=== PATIENT | male | born 1945 | race Caucasian/White ===

== ENCOUNTER → 2018-02-04 14:48 | Outpatient (CLI) | payer MEDICARE, OTHER, SELFPAY ==
[2018-02-04 14:51] LABS: Bacteria 0 SEEN /hpf (None Seen); Squamous Epithelial Cells - UA 0 SEEN /hpf (0-5); White Blood Cells 0 SEEN /hpf (0-5)
[2018-02-04 15:51] LABS: Absolute Lymphocyte Count 2.13 X10^3/ul (0.83-4.51); Absolute Neutrophil Count 3.2 X10^3/uL (2.0-7.7); Basophil# 0.02 X10^3/uL; Basophil% 0.3 % (0-1); Eosinophil# 0.25 X10^3/uL; Hematocrit 40.3 % (40-54); Hemoglobin 13.7 g/dl (13.0-16.5); Lymphocyte # 2.13 X10^3/ul (4.0); Lymphocyte % 33.8 % (19-41); Mean Corpuscular Hgb 32.6 pg (27.0-32.0); Mean Platelet Vol. 11.1 fl (6.2-12.0); Monocyte# 0.75 X10^3/uL; Monocyte% 11.9 % (0-10); Neutrophil # 3.15 X10^3/uL (2.7-7.7); Neutrophil % 49.8 % (47-70); Platelet Count 135 K/mm3 (150-450); RBC Distribution Width CV 13.7 % (11.6-14.6); RBC Distribution Width SD 46.3 fl (35.1-43.9); White Blood Count 6.3 K/mm3 (4.4-11.0)
[2018-02-04 15:54] LABS: Color, Urine Yellow (Yellow); Glucose, Dipstick Normal (Normal); Ketone-Dipstick 5 mg/dl (Negative); Leukocyte Esterase-Dipstick 25 /ul (Negative); Nitrite-Dipstick Negative (Negative); Occult Blood-Urine Negative /ul (Negative); Protein-Dipstick Negative (Negative); Urine Clarity Clear (Clear); Urine Urobilinogen 1 mg/dl (Normal)
[2018-02-04 16:05] LABS: POSITIVE COUNT NO; POSITIVE DIFFERENTIAL NO; POSITIVE MORPHOLOGY NO
[2018-02-04 16:07] LABS: ALB/GLOB Ratio 1.1 RATIO (0.9-2.4); AST(SGOT) 17 U/L (15-37); Alanine Aminotransfer ALT/SGPT 19 U/L (16-61); Albumin, Serum 3.8 g/dL (3.2-5.0); Alkaline Phosphatase 33 U/L (45-117); Anion Gap 9 (5-15); BUN 23 mg/dL (7-18); BUN/Creat Ratio 16.4 RATIO (10-20); Calcium,Total 9.1 mg/dL (8.5-10.1); Chloride 107 mmol/L (98-107); Cholesterol 133 mg/dL (200); EST Glomerular Filtration Rate 53 mL/min (>60); Est Glom Filt Rate - Afr Amer 64 mL/min (>60); Globulin 3.6 g/dL (2.2-4.2); Glucose 87 mg/dL (74-106); High Density Lipoprotein 46 mg/dL; Potassium 4.6 mmol/L (3.5-5.1); Protein, Total 7.4 g/dL (6.4-8.2); Sodium Level 139 mmol/L (136-145); T4 Free Direct 1.03 ng/dL (0.76-1.46); Thyroid Stim Hormone (TSH) 1.89 uIU/mL (0.358-3.74); Triglycerides 165 mg/dL; Very Low Density Lipoprotein 33 mg/dL (5-40)
[2018-02-04 17:53] LABS: Urine Bilirubin Dipstick 1 mg/dL (Negative)
[2018-02-04 18:05] LABS: Hyaline Cast 0-5 SEEN /lpf (0-5); Mucous, Urine 2+ /hpf (<or=2+); Red Blood Cells-Urine 0-5 SEEN /hpf (0-5)
== END ==
PROVIDERS: Family Provider Family Medicine; PCP Family Medicine; Visit Provider Family Medicine
DX: I50.22 Chronic systolic (congestive) heart failure (principal); E78.5 Hyperlipidemia, unspecified; E04.1 Nontoxic single thyroid nodule
CPT/HCPCS: 36415; 80053; 80061; 81001; 84439; 84443; 85025

== ENCOUNTER → 2018-02-08 10:22 | Outpatient (CLI) | payer MEDICARE, OTHER, SELFPAY ==
[2018-02-08 12:34] LABS: Anion Gap 11 (5-15); BUN 14 mg/dL (7-18); BUN/Creat Ratio 11.2 RATIO (10-20); Calcium,Total 8.8 mg/dL (8.5-10.1); Chloride 101 mmol/L (98-107); Creatinine, Serum 1.25 mg/dL (0.70-1.30); EST Glomerular Filtration Rate 60 mL/min (>60); Est Glom Filt Rate - Afr Amer 72 mL/min (>60); Glucose 99 mg/dL (74-106); Potassium 4.5 mmol/L (3.5-5.1); Sodium Level 130 mmol/L (136-145)
== END ==
PROVIDERS: Family Provider Family Medicine; PCP Family Medicine; Visit Provider Family Medicine
DX: I10 Essential (primary) hypertension (principal)
CPT/HCPCS: 36415; 80048

== ENCOUNTER → 2018-02-14 12:55 | Outpatient (CLI) | payer MEDICARE, OTHER, SELFPAY ==
--- NOTE | 2018-02-14 12:56 | US_ITS ---
STUDY: THYROID ULTRASOUND REASON FOR EXAM: Male, 72 years old. Nodule TECHNIQUE: Ultrasound evaluation of the thyroid was performed with real-time and static henning-scale imaging. COMPARISON: None. FINDINGS: RIGHT LOBE: The right lobe of the thyroid gland measures 4.8 x 2.7 x 1.9 cm. There is a heterogeneous echotexture. Several nodules are seen with largest measuring 2.3 cm. LEFT LOBE: The left lobe of the thyroid gland measures 4.7 x 1.3 x 1.4 cm. There is a heterogeneous echotexture. Several tiny nodules are seen with largest measuring 6 mm. ISTHMUS: The isthmus measures 4 mm . The regional lymph nodes are normal. US/Thyroid IMPRESSION: Heterogeneous thyroid gland with a 2.3 cm dominant nodule on the right. Consider biopsy. Electronically Signed: Ilya Ford MD at 17:38 EDT , Service support ,
== END ==
PROVIDERS: Family Provider Family Medicine; PCP Family Medicine; Visit Provider Family Medicine
DX: E04.1 Nontoxic single thyroid nodule (principal)
CPT/HCPCS: 76536

== ENCOUNTER 2018-02-24 13:58 | Observation (INO) | payer MEDICARE, OTHER, SELFPAY ==
[2018-02-24] VITALS (11 sets, daily range): BP systolic 94–119; BP diastolic 60–70; PULSE 64–81; RESP 14–22; TEMP 36.5–36.7; O2SAT 92–97; BMI 25.2; BMI 24.0
--- NOTE | 2018-02-24 14:06 | RAD_ITS ---
STUDY: X-RAY CHEST REASON FOR EXAM: Male, 73 years old. Syncopal episode. TECHNIQUE: Single AP portable view of the chest. COMPARISON: None. FINDINGS: EKG electrodes are seen. Minimal increased markings at the lung bases suggests some minimal basilar scarring. There is no demonstrated pleural abnormality. Sternal cerclage wires and vascular clips are present from a prior sternotomy and coronary artery bypass graft procedure (CABG). A left-sided dual-chamber pacemaker is seen. Normal mediastinum and daryl. Normal visualized pulmonary arteries. There is atherosclerotic calcification of the aortic arch with tortuosity. Normal visualized thoracic spine. Normal visualized ribs, clavicles, and shoulders. There is no demonstrated abnormality of the visualized soft tissue structures of the upper abdomen. RAD/Chest 1 View (Portable) IMPRESSION: No acute abnormality is present. Electronically Signed: Jefferson Davison MD at 14:49 EDT Tel [phone], Service support ,
--- NOTE | 2018-02-24 14:06 | EKG12_ITS ---
Test Reason : CHEST PAIN Blood Pressure : / mmHG Vent. Rate : 068 BPM Atrial Rate : 063 BPM P-R Int : 174 ms QRS Dur : 086 ms QT Int : 470 ms P-R-T Axes : 051 007 074 degrees QTc Int : 499 ms Sinus rhythm with occasional PVCs Nonspecific T wave abnormality Prolonged QT Abnormal ECG Confirmed by INGRID RUIZ, ANTONIO ([id number]), mapping editor KELLY RIVERA ([id number] on 03/02/2018 1:39:33 PM Referred By: RU Confirmed By:ANTONIO QUINTERO MD
[2018-02-24 14:14] LABS: Absolute Lymphocyte Count 1.84 X10^3/ul (0.83-4.51); Absolute Neutrophil Count 4.1 X10^3/uL (2.0-7.7); Basophil# 0.03 X10^3/uL; Basophil% 0.4 % (0-1); Eosinophil# 0.27 X10^3/uL; Eosinophils% 3.8 % (0-5); Hematocrit 37.2 % (40-54); Hemoglobin 12.9 g/dl (13.0-16.5); Lymphocyte # 1.84 X10^3/ul (4.0); Lymphocyte % 25.7 % (19-41); Mean Corp Hgb Conc 34.7 g/gl (32-36); Mean Corpuscular Hgb 33.1 pg (27.0-32.0); Mean Corpuscular Volume 95.4 fL (80-94); Mean Platelet Vol. 10.1 fl (6.2-12.0); Monocyte% 12.6 % (0-10); Neutrophil # 4.09 X10^3/uL (2.7-7.7); Neutrophil % 57.2 % (47-70); POSITIVE COUNT NO; POSITIVE DIFFERENTIAL NO; POSITIVE MORPHOLOGY NO; Platelet Count 131 K/mm3 (150-450); RBC Distribution Width CV 13.1 % (11.6-14.6); RBC Distribution Width SD 44.4 fl (35.1-43.9); White Blood Count 7.2 K/mm3 (4.4-11.0)
[2018-02-24] MEDS: 0.9% Normal Saline 1,000 ML 150 ML IV (14:22)
[2018-02-24 14:28] LABS: Anion Gap 6 (5-15); BUN 15 mg/dL (7-18); BUN/Creat Ratio 9.6 RATIO (10-20); Calcium,Total 8.2 mg/dL (8.5-10.1); Chloride 108 mmol/L (98-107); Creatinine, Serum 1.56 mg/dL (0.70-1.30); EST Glomerular Filtration Rate 46 mL/min (>60); Est Glom Filt Rate - Afr Amer 56 mL/min (>60); Estimated Creatinine Clearance 42.25 ml/min; Glucose 110 mg/dL (74-106); Potassium 4.1 mmol/L (3.5-5.1); Sodium Level 138 mmol/L (136-145)
--- NOTE | 2018-02-24 15:05 | PCM.HP.STD ---
Problem List (1) Dehydration Status: Acute (2) Hypotension Status: Acute Qualifiers: (3) HLD (hyperlipidemia) Status: Chronic (4) Benign essential hypertension Status: Chronic (5) CAD (coronary artery disease) Status: Chronic (6) S/P AVR (aortic valve replacement) Status: Chronic (7) CHF (congestive heart failure) Status: Chronic (8) Status post placement of cardiac pacemaker Status: Chronic (9) CKD (chronic kidney disease) Status: Chronic History of Present Illness Date of Admission: 02/24/18 Chief Complaint: Syncopal episode. The patient is a 73 year old M who presents to the emergency room after a syncopal episode while riding in car with his granddaughter. Patient does not recall the episode. Family at bedside states patient was riding with granddaughter from [facility] to home when he was noted to pass out and was not responding to granddaughter. Granddaughter called the squad and his blood pressure was noted to be systolically in the 60s. Earlier today, patient had routine echocardiogram and chemical stress test at [facility]. He does not know results of these tests. He denies dizziness, lightheadedness. Denies chest pain, shortness of breath. He states he was asymptomatic during stress test. He denies recent illness. Denies palpitations. He states he follows with [facility] hosiery bagger and stenotype operator. Patient denies history of syncopal episodes. He lives at home with his granddaughter. He has a history of CAD status post CABG in 2009, history of ventricular tachycardia status post pacemaker/defibrillator placement in 2011, hypertension, hyperlipidemia, s/p AVR, and recent diagnosis of thyroid nodule. Patient is to undergo thyroid biopsy with Dr. Hooker on 02/20/2019. Past Medical History Past Medical History (Chronic Problems): Chronic Problems (Last Reviewed 02/22/18 @ 07:07 by Noah Hooker MD) CAD (coronary artery disease) (Chronic) S/P AVR (aortic valve replacement) (Chronic) CHF (congestive heart failure) (Chronic) Status post placement of cardiac pacemaker (Chronic) CKD (chronic kidney disease) (Chronic) HLD (hyperlipidemia) (Chronic) Benign essential hypertension (Chronic) Allergies diclofenac [From Voltaren] Allergy (Verified 02/24/18 14:02) Unknown Home Medications: Ambulatory Orders Medication Instructions Recorded clopidogrel 75 mg tablet 150 mg PO QDAY 01/07/18 geriatric multivit with iron and 1 tab PO QDAY 01/07/18 minerals tablet spironolactone 25 mg tablet 25 mg PO QAM 01/07/18 aspirin 81 mg tablet,delayed 81 mg PO QDAY 02/21/18 release carvedilol 25 mg tablet 25 mg PO BID 02/21/18 losartan 50 mg tablet 50 mg PO QDAY 02/21/18 simvastatin 80 mg tablet 80 mg PO QDAY 02/21/18 Surgical History: herniorrhaphy, tonsillectomy, - - Left knee replacement, CABG, aortic valve replacement, pacemaker/defibrillator placement. Lives: With Family - with granddaughter Smoking Status: Never smoker Alcohol: None Drugs: None - *Family History Maternal History Items: - - CHF Paternal History Items: - - COPD Review of Systems Constitutional: Denies: Chills, Fever, Weight Change HEENT: Denies: Head Aches, Sinus Congestion, Sinus Drainage Cardiovascular: Reports: Syncope. Denies: Chest Pain, Light Headedness, Palpitations Respiratory: Denies: Cough, Shortness of breath at rest, Sputum production Gastrointestinal: Denies: Abdominal Pain, Nausea, Vomiting Genitourinary: Denies: Dysuria Musculoskeletal: Denies: Joint Pain, Joint Tenderness Skin: Denies: Rash, Wounds Neurological: Denies: Numbness, Tingling, Focal weakness Psychiatric: Denies: Anxiety, Depression, Homicidal Ideations, Suicidal Ideations Hematologic/ Lymphatic: Denies: Easy Bruising, Easy Bleeding VTE Information - Inpt Only VTE Present on Admission: No VTE Mechan Device Prophylaxis: None VTE Pharm Prophylaxis ordered?: Yes - Physical Exam General: Alert, Oriented x3, Cooperative, No apparent distress HEENT: Atraumatic, PERRLA, EOMI, Normocephalic Neck: Supple, No JVD, Negative Carotid Bruits Lungs: Clear to auscultation, Normal air movement Cardiovascular: Regular rate, Regular Rhythm, Normal S1, Normal S2, Murmur Abdomen: Bowel Sounds Present, Soft, Non Tender, Non-Distended Extremities: No clubbing, No cyanosis, No edema, Capillary Refill Less than 3 Seconds Skin: No rashes, No breakdown Musculoskeletal: No Tenderness to Palpation of Joints or Extremities Neurological: Cranial nerves II-XII grossly intact, Neuro grossly intact Psych/Mental Status: Normal Affect Vital Signs Temp Pulse Resp BP Pulse Ox 97.7 F L 67 16 94/65 94 02/24/18 13:58 02/24/18 14:03 02/24/18 14:03 02/24/18 13:58 02/24/18 14:03 Oxygen Delivery Method Room Air Weight: 80 kg Body Mass Index (BMI) 25.2 Laboratory Tests Past 24 Hrs 02/24/18 02/24/18 14:05 14:05 WBC 7.2 RBC 3.90 L Hgb 12.9 L Hct 37.2 L MCV 95.4 H MCH 33.1 H MCHC 34.7 RDW 13.1 RDW Differential 44.4 H Plt Count 131 L MPV 10.1 Immature Gran % (Auto) 0.300 Neut % (Auto) 57.2 Lymph % (Auto) 25.7 [place] % (Auto) 12.6 H Eos % (Auto) 3.8 Baso % (Auto) 0.4 Absolute Neuts (auto) 4.1 Absolute Lymphs (auto) 1.84 Total Counted Not Reportable Sodium 138 Potassium 4.1 Chloride 108 H Carbon Dioxide 24.0 Anion Gap 6 BUN 15 Creatinine 1.56 H Estim Creat Clear Calc 42.25 Est GFR (MDRD) Af Amer 56 L Est GFR (MDRD) Non-Af 46 L BUN/Creatinine Ratio 9.6 L Glucose 110 H Calcium 8.2 L Troponin I < 0.015 Assessment/Plan 1. Syncope- suspect secondary to hypotension. Squad noted patient's systolic blood pressure to be in the 60s. Patient had recent urgent care visit with hypotension and dizziness. Request results of echocardiogram and chemical stress test which were completed this morning at [facility]. Cycle enzymes. Obtain mg. Monitor telemetry. Check orthostatic vitals. Gentle IVF. 2. Hypotension- hold antihypertensive regimen. Gentle IV fluids. Check orthostatic vitals. 3. CAD s/p CABG and stents-does not follow with hosiery bagger. Recommend outpatient routine follow-up with cardiology. Continue statin. Aspirin and Plavix on hold due to upcoming thyroid biopsy. 4. History of ventricular tachycardia S/P AICD placed in 2011-pacemaker interrogated in the ER and no events were noted. 5. Status post AVR 6. Hypertension-home antihypertensive regimen on hold secondary to #2. 7. Hyperlipidemia-continue statin. 8. Multinodular goiter- Patient is to undergo thyroid biopsy with Dr. Hooker on 02/20/2019. Continue to hold plavix, asa. TSH 1.89 02/04/18. 9. Mild macrocytic anemia- check iron studies and folic acid, B12. 10. CKD suspected stage 3-baseline creat 1.4. Creatinine admission 1.5. Gentle IV fluids. Monitor BMP. DVT prophylaxis-heparin SC. This patient was seen by ARJUN Cunningham under the supervision of Dr. Mukherjee.
--- NOTE | 2018-02-24 15:07 | ED.VISSUMM ---
- ER Visit Summary Date of Service: 02/24/18 Chief Complaint: [Syncope] History of Present Illness: The patient is a 73 M [presents with a syncopal episode while riding in a vehicle. Patient apparently had had some routine testing at [facility] this morning including echo and chemical stress testing. Patient subsequently went to [facility] with his granddaughter and then they were driving home when the granddaughter noticed that he was somewhat slumped over and unresponsive. Patient was found to be hypotensive by EMS with a systolic of 60. Patient on arrival the emergency department denies any chest pain, shortness of breath, dizziness, or any other complaints. Patient does have a pacemaker and has had aortic valve replacement and normally is on Coumadin. Patient states that he scheduled to have a thyroid biopsy next week therefore he is been off his Coumadin. Denies recent illness.] Physical Examination: [HEENT-PERRLA, EOMI. Cranial nerves II through XII grossly intact. TMs clear. Mucous membranes moist. No adenopathy. Cardiovascular-regular rate and rythm. Patient is a 2 out of 6 systolic ejection murmur Lungs-clear to auscultation, chest wall stable without crepitus or subcu emphysema Abdomen-normoactive bowel sounds, soft, nontender, no rebound or rigidity, no peritoneal signs. Extremities-intact ?4, normal range of motion, normal pulses, atraumatic] Test Results: [EKG obtained showed sinus rhythm with a ventricular rate 60 bpm with some nonspecific ST changes. When compared with prior EKG no significant changes noted. CBC with differential obtained showed white count of 7.2, hemoglobin 13, hematocrit 37, platelets 131. Chemistries unremarkable. BUN was 15 and creatinine was 1.56. Troponin was less than 0.015. Chest x-ray showed nothing acute. Patient's pacemaker was interrogated and there were no events that would precipitate syncope.] Emergency Department Course and Treatment: [Patient will be admitted for further evaluation and observation.] Treatment Plan: [Admit] Disposition: [Admit] Impression: [Syncope-etiology uncertain] This note was generated with [employer] software. It may contain incorrect words, spelling, and punctuation that were not noted in review of the chart prior to signing ED Disposition - Plan for ED Patient: Chief Complaint: Unresponsive Referrals: Jonathon Bryant MD [Primary Care Provider] -
--- NOTE | 2018-02-24 15:19 | HP.PCM_ITS ---
Problem List (1) Dehydration Status: Acute (2) Hypotension Status: Acute Qualifiers: (3) HLD (hyperlipidemia) Status: Chronic (4) Benign essential hypertension Status: Chronic (5) CAD (coronary artery disease) Status: Chronic (6) S/P AVR (aortic valve replacement) Status: Chronic (7) CHF (congestive heart failure) Status: Chronic (8) Status post placement of cardiac pacemaker Status: Chronic (9) CKD (chronic kidney disease) Status: Chronic History of Present Illness Date of Admission: 02/24/18 Chief Complaint: Syncopal episode. The patient is a 73 year old M who presents to the emergency room after a syncopal episode while riding in car with his granddaughter. Patient does not recall the episode. Family at bedside states patient was riding with granddaughter from [facility] to home when he was noted to pass out and was not responding to granddaughter. Granddaughter called the squad and his blood pressure was noted to be systolically in the 60s. Earlier today, patient had routine echocardiogram and chemical stress test at [facility]. He does not know results of these tests. He denies dizziness, lightheadedness. Denies chest pain, shortness of breath. He states he was asymptomatic during stress test. He denies recent illness. Denies palpitations. He states he follows with [place] improvement rn and printer machine. Patient denies history of syncopal episodes. He lives at home with his granddaughter. He has a history of CAD status post CABG in 2009, history of ventricular tachycardia status post pacemaker/defibrillator placement in 2011, hypertension, hyperlipidemia, s/p AVR , and recent diagnosis of thyroid nodule. Patient is to undergo thyroid biopsy with Dr. Hooker on 02/20/2019. Past Medical History Past Medical History (Chronic Problems): Chronic Problems (Last Reviewed 02/22/18 @ 07:07 by Noah Hooker MD) CAD (coronary artery disease) (Chronic) S/P AVR (aortic valve replacement) (Chronic) CHF (congestive heart failure) (Chronic) Status post placement of cardiac pacemaker (Chronic) CKD (chronic kidney disease) (Chronic) HLD (hyperlipidemia) (Chronic) Benign essential hypertension (Chronic) Allergies diclofenac [From Voltaren] Allergy (Verified 02/24/18 14:02) Unknown Home Medications: Ambulatory Orders Medication Instructions Recorded clopidogrel 75 mg tablet 150 mg PO QDAY 01/07/18 geriatric multivit with iron and 1 tab PO QDAY 01/07/18 minerals tablet spironolactone 25 mg tablet 25 mg PO QAM 01/07/18 aspirin 81 mg tablet,delayed 81 mg PO QDAY 02/21/18 release carvedilol 25 mg tablet 25 mg PO BID 02/21/18 losartan 50 mg tablet 50 mg PO QDAY 02/21/18 simvastatin 80 mg tablet 80 mg PO QDAY 02/21/18 Surgical History: herniorrhaphy, tonsillectomy, - - Left knee replacement, CABG , aortic valve replacement, pacemaker/defibrillator placement. Lives: With Family - with granddaughter Smoking Status: Never smoker Alcohol: None Drugs: None - *Family History Maternal History Items: - - CHF Paternal History Items: - - COPD Review of Systems Constitutional: Denies: Chills, Fever, Weight Change HEENT: Denies: Head Aches, Sinus Congestion, Sinus Drainage Cardiovascular: Reports: Syncope. Denies: Chest Pain, Light Headedness, Palpitations Respiratory: Denies: Cough, Shortness of breath at rest, Sputum production Gastrointestinal: Denies: Abdominal Pain, Nausea, Vomiting Genitourinary: Denies: Dysuria Musculoskeletal: Denies: Joint Pain, Joint Tenderness Skin: Denies: Rash, Wounds Neurological: Denies: Numbness, Tingling, Focal weakness Psychiatric: Denies: Anxiety, Depression, Homicidal Ideations, Suicidal Ideations Hematologic/ Lymphatic: Denies: Easy Bruising, Easy Bleeding VTE Information - Inpt Only VTE Present on Admission: No VTE Mechan Device Prophylaxis: None VTE Pharm Prophylaxis ordered?: Yes - Physical Exam General: Alert, Oriented x3, Cooperative, No apparent distress HEENT: Atraumatic, PERRLA, EOMI, Normocephalic Neck: Supple, No JVD, Negative Carotid Bruits Lungs: Clear to auscultation, Normal air movement Cardiovascular: Regular rate, Regular Rhythm, Normal S1, Normal S2, Murmur Abdomen: Bowel Sounds Present, Soft, Non Tender, Non-Distended Extremities: No clubbing, No cyanosis, No edema, Capillary Refill Less than 3 Seconds Skin: No rashes, No breakdown Musculoskeletal: No Tenderness to Palpation of Joints or Extremities Neurological: Cranial nerves II-XII grossly intact, Neuro grossly intact Psych/Mental Status: Normal Affect Vital Signs Temp Pulse Resp BP Pulse Ox 97.7 F L 67 16 94/65 94 02/24/18 13:58 02/24/18 14:03 02/24/18 14:03 02/24/18 13:58 02/24/18 14:03 Oxygen Delivery Method Room Air Weight: 80 kg Body Mass Index (BMI) 25.2 Laboratory Tests Past 24 Hrs 02/24/18 02/24/18 14:05 14:05 WBC 7.2 RBC 3.90 L Hgb 12.9 L Hct 37.2 L MCV 95.4 H MCH 33.1 H MCHC 34.7 RDW 13.1 RDW Differential 44.4 H Plt Count 131 L MPV 10.1 Immature Gran % (Auto) 0.300 Neut % (Auto) 57.2 Lymph % (Auto) 25.7 [place] % (Auto) 12.6 H Eos % (Auto) 3.8 Baso % (Auto) 0.4 Absolute Neuts (auto) 4.1 Absolute Lymphs (auto) 1.84 Total Counted Not Reportable Sodium 138 Potassium 4.1 Chloride 108 H Carbon Dioxide 24.0 Anion Gap 6 BUN 15 Creatinine 1.56 H Estim Creat Clear Calc 42.25 Est GFR (MDRD) Af Amer 56 L Est GFR (MDRD) Non-Af 46 L BUN/Creatinine Ratio 9.6 L Glucose 110 H Calcium 8.2 L Troponin I < 0.015 Assessment/Plan 1. Syncope- suspect secondary to hypotension. Squad noted patient's systolic blood pressure to be in the 60s. Patient had recent urgent care visit with hypotension and dizziness. Request results of echocardiogram and chemical stress test which were completed this morning at [facility]. Cycle enzymes. Obtain mg. Monitor telemetry. Check orthostatic vitals. Gentle IVF. 2. Hypotension- hold antihypertensive regimen. Gentle IV fluids. Check orthostatic vitals. 3. CAD s/p CABG and stents-does not follow with improvement rn. Recommend outpatient routine follow-up with cardiology. Continue statin. Aspirin and Plavix on hold due to upcoming thyroid biopsy. 4. History of ventricular tachycardia S/P AICD placed in 2011-pacemaker interrogated in the ER and no events were noted. 5. Status post AVR 6. Hypertension-home antihypertensive regimen on hold secondary to #2. 7. Hyperlipidemia-continue statin. 8. Multinodular goiter- Patient is to undergo thyroid biopsy with Dr. Hooker on 02/20/2019. Continue to hold plavix, asa. TSH 1.89 02/04/18. 9. Mild macrocytic anemia- check iron studies and folic acid, B12. 10. CKD suspected stage 3-baseline creat 1.4. Creatinine admission 1.5. Gentle IV fluids. Monitor BMP. DVT prophylaxis-heparin SC. This patient was seen by ARJUN Cunningham under the supervision of Dr. Mukherjee.
[2018-02-24 16:44] LABS: Magnesium 1.6 mg/dL (1.6-2.6); Thyroid Stim Hormone (TSH) 2.71 uIU/mL (0.358-3.74)
[2018-02-24 16:50] LABS: Hemoglobin A1c 6.6 % (4.2-6.3)
[2018-02-24 17:17] LABS: Ferritin 136 ng/mL (26-388); Iron 109 ug/dL (65-175); Iron Binding Capacity,Total 246 ug/dL (250-450); PERCENT IRON SATURATION 44.3 % (15.0-55.0)
[2018-02-24] MEDS: 0.9% NaCl Peripheral Flush Adult/Peds IV (18:02)
[2018-02-24] MEDS: 0.9% Normal Saline 1,000 ML 75 ML IV (18:02)
[2018-02-24 18:21] LABS: Bacteria 0 SEEN /hpf (None Seen); Mucous, Urine 0 SEEN /hpf (<or=2+); White Blood Cells 0 SEEN /hpf (0-5)
[2018-02-24 18:23] LABS: Color, Urine Yellow (Yellow); Glucose, Dipstick Normal (Normal); Ketone-Dipstick Negative (Negative); Leukocyte Esterase-Dipstick Negative /ul (Negative); Nitrite-Dipstick Negative (Negative); Occult Blood-Urine 10 /ul (Negative); Protein-Dipstick 30 mg/dl (Negative); Urine Bilirubin Dipstick Negative (Negative); Urine Clarity Sl. Cloudy (Clear); Urine Urobilinogen 1 mg/dl (Normal)
[2018-02-24 18:30] LABS: Red Blood Cells-Urine 0-5 SEEN /hpf (0-5); Squamous Epithelial Cells - UA 0-5 SEEN /hpf (0-5)
[2018-02-24] MEDS: Heparin Injection (Vial) 5,000 UNIT/ML VIAL 5000 UNIT SC (21:28)
[2018-02-25] VITALS (8 sets, daily range): BP systolic 107–134; BP diastolic 68–79; PULSE 60–76; RESP 14–16; TEMP 36.6–37.1; O2SAT 92–95
[2018-02-25] MEDS: 0.9% Normal Saline 1,000 ML 75 ML IV (03:33)
[2018-02-25 05:38] LABS: Hematocrit 35.2 % (40-54); Hemoglobin 12.1 g/dl (13.0-16.5); Mean Corp Hgb Conc 34.4 g/gl (32-36); Mean Corpuscular Volume 95.9 fL (80-94); Mean Platelet Vol. 10.2 fl (6.2-12.0); Platelet Count 119 K/mm3 (150-450); RBC Distribution Width CV 13.3 % (11.6-14.6); Red Blood Count 3.67 M/mm3 (4.6-6.2); White Blood Count 7.4 K/mm3 (4.4-11.0)
[2018-02-25 05:42] LABS: Scan Indicated on CBC? Y/N NO
[2018-02-25 05:54] LABS: Anion Gap 9 (5-15); BUN 16 mg/dL (7-18); BUN/Creat Ratio 13.7 RATIO (10-20); Calcium,Total 7.8 mg/dL (8.5-10.1); Chloride 109 mmol/L (98-107); Creatinine, Serum 1.17 mg/dL (0.70-1.30); EST Glomerular Filtration Rate 65 mL/min (>60); Est Glom Filt Rate - Afr Amer 78 mL/min (>60); Estimated Creatinine Clearance 56.33 ml/min; Glucose 90 mg/dL (74-106); Potassium 4.3 mmol/L (3.5-5.1); Sodium Level 140 mmol/L (136-145)
[2018-02-25] MEDS: Heparin Injection (Vial) 5,000 UNIT/ML VIAL 5000 UNIT SC (06:05)
--- NOTE | 2018-02-25 06:56 | NURSING ---
Spoke face to face with Daughter, Leilani [facility] surgical empolyee. Would like called when Md rounds this am. Extension, [phone].
[2018-02-25 10:26] LABS: Vitamin B12 614 pg/mL (211-911)
[2018-02-25] MEDS: Atorvastatin Calcium 40 MG Tablet PO (10:27)
--- NOTE | 2018-02-25 10:40 | PCM.DC ---
- Discharge Diagnoses Current Active Problems: Current Active and Chronic Problems (Last Reviewed 02/22/18 @ 07:07 by Noah Hooker MD) CAD (coronary artery disease) (Chronic) S/P AVR (aortic valve replacement) (Chronic) CHF (congestive heart failure) (Chronic) Status post placement of cardiac pacemaker (Chronic) CKD (chronic kidney disease) (Chronic) You will use the following diet at home:: Cardiac Your food should be the consistency of: Regular Your liquids should be the consistency of: Regular/Thin Discharge Activity: Return to Normal Activity Allergies/Adverse Reactions: Allergies diclofenac [From Voltaren] Allergy (Verified 02/24/18 14:02) Unknown Medications to take at Discharge clopidogrel 75 mg tablet 75 mg PO DAILY 01/07/18 geriatric multivit with iron and minerals tablet 1 tab PO DAILY 01/07/18 spironolactone 25 mg tablet 25 mg PO QAM 01/07/18 aspirin 81 mg tablet,delayed release 81 mg PO DAILY 02/21/18 carvedilol 25 mg tablet 50 mg PO BID 02/21/18 losartan 50 mg tablet 50 mg PO BID 02/21/18 simvastatin 80 mg tablet 80 mg PO QHS 02/21/18 Primary Care Physician: Jonathon Bryant MD [Primary Care Provider] - Please follow up with your Primary Care Physician in: 5 to 7 days. Please Follow Up With: Knitter Mechanic When: in 1 to 2 weeks.
--- NOTE | 2018-02-25 10:42 | PCM.DC.SUM ---
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 Electronically Signed: Jefferson Davison MD at 14:49 EDT Tel [phone], Service support , ELECTRICAL CONTROLS ENGINEER: None. Operations: None Procedures: None Summary of Care Provided: The patient is a 73 year old M who presents to the emergency room after a syncopal episode while riding in car with his granddaughter. Patient does not recall the episode. Family at bedside states patient was riding with granddaughter from [facility] to home when he was noted to pass out and was not responding to granddaughter. Granddaughter called the squad and his blood pressure was noted to be systolically in the 60s. Earlier today, patient had routine echocardiogram and chemical stress test at [facility]. He does not know results of these tests. He denies dizziness, lightheadedness. Denies chest pain, shortness of breath. He states he was asymptomatic during stress test. He denies recent illness. Denies palpitations. He states he follows with [place] behavioral sciences instructor and fine patcher. Patient denies history of syncopal episodes. He lives at home with his granddaughter. He has a history of CAD status post CABG in 2009, history of ventricular tachycardia status post pacemaker/defibrillator placement in 2011, hypertension, hyperlipidemia, s/p AVR, and recent diagnosis of thyroid nodule. #1 Syncope. He had persisting symptoms with malaise, resulted in loss of consciousness, probably due to persisting hypotension, although malignant arrhythmia was possible. However, he has Pacemaker/ICD, which was interrogated in ED. Per report, there was no suspicious events recorded. He has been feeling well after IVF hydration, BP had improved. Stress test from [facility] reviewed, showed fixed defect inferior and inferolateral and lateral wall defect, with small jason-infarct ischemia in the basal lateral wall. Of note, he had frequent PVC on EKG part of stress test. EF was 33%. OK to discharge to home, and follow up with PCP and fine patcher. #2 CAD. As above. #3 WHITNEY with CKD III. Creatinine was 1.56 on admission, improved to 1.17 on the following day. This is better than his baseline. #4 CHF with systolic dysfunction, chronic. He is euvolemic. He is on spironolactone 25 mg po qd only for diuretics. Continue for now, and follow up as outpatient. Fluid restriction to 1.5 quart a day, but otherwise, he should consume at least 1 quart of fluid to avoid dehydration. Discussed extensively with patient and his daughter. #5 history of Aortic valve repair. Echo was done at [place], but result is not available. Presentation is atypical of aortic valve stenosis, but rather, prolonged hypotension. No evidence of blown valve. Follow up Echo result as outpatient. Discharge Diet: - - Cardiac diet. Discharge Activity: Return to Normal Activity Home Medications: Medications to take at Discharge clopidogrel 75 mg tablet 75 mg PO DAILY 01/07/18 geriatric multivit with iron and minerals tablet 1 tab PO DAILY 01/07/18 spironolactone 25 mg tablet 25 mg PO QAM 01/07/18 aspirin 81 mg tablet,delayed release 81 mg PO DAILY 02/21/18 carvedilol 25 mg tablet 50 mg PO BID 02/21/18 losartan 50 mg tablet 50 mg PO BID 02/21/18 simvastatin 80 mg tablet 80 mg PO QHS 02/21/18 Primary Care Physician: Jonathon Bryant MD [Primary Care Provider] - Please follow up with your Primary Care Physician in: 5 to 7 days. Please Follow Up With: Quality Technician Fiberglass When: in 1 to 2 weeks. Disposition: Home Patient Condition:: Good Medical Necessity - Tobacco Use Smoking Status: Never smoker Meaningful Use Info Meaningful Use Diagnoses (Choose all that apply): None applicable Code Visit Inpatient E&M: 07977 Disch Hosp
--- NOTE | 2018-02-25 10:54 | DS.PCM_ITS ---
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 Electronically Signed: Jefferson Davison MD at 14:49 EDT Tel [phone], Service support , CONTINUING EDUCATION INSTRUCTOR: None. Operations: None Procedures: None Summary of Care Provided: The patient is a 73 year old M who presents to the emergency room after a syncopal episode while riding in car with his granddaughter. Patient does not recall the episode. Family at bedside states patient was riding with granddaughter from [facility] to home when he was noted to pass out and was not responding to granddaughter. Granddaughter called the squad and his blood pressure was noted to be systolically in the 60s. Earlier today, patient had routine echocardiogram and chemical stress test at [facility]. He does not know results of these tests. He denies dizziness, lightheadedness. Denies chest pain, shortness of breath. He states he was asymptomatic during stress test. He denies recent illness. Denies palpitations. He states he follows with [place] pocket setter lockstitch and asset protection detective. Patient denies history of syncopal episodes. He lives at home with his granddaughter. He has a history of CAD status post CABG in 2009, history of ventricular tachycardia status post pacemaker/defibrillator placement in 2011, hypertension, hyperlipidemia, s/p AVR , and recent diagnosis of thyroid nodule. #1 Syncope. He had persisting symptoms with malaise, resulted in loss of consciousness, probably due to persisting hypotension, although malignant arrhythmia was possible. However, he has Pacemaker/ICD, which was interrogated in ED. Per report, there was no suspicious events recorded. He has been feeling well after IVF hydration, BP had improved. Stress test from [facility] reviewed, showed fixed defect inferior and inferolateral and lateral wall defect, with small jason-infarct ischemia in the basal lateral wall. Of note, he had frequent PVC on EKG part of stress test. EF was 33%. OK to discharge to home, and follow up with PCP and asset protection detective. #2 CAD. As above. #3 WHITNEY with CKD III. Creatinine was 1.56 on admission, improved to 1.17 on the following day. This is better than his baseline. #4 CHF with systolic dysfunction, chronic. He is euvolemic. He is on spironolactone 25 mg po qd only for diuretics. Continue for now, and follow up as outpatient. Fluid restriction to 1.5 quart a day, but otherwise, he should consume at least 1 quart of fluid to avoid dehydration. Discussed extensively with patient and his daughter. #5 history of Aortic valve repair. Echo was done at [place], but result is not available. Presentation is atypical of aortic valve stenosis, but rather, prolonged hypotension. No evidence of blown valve. Follow up Echo result as outpatient. Discharge Diet: - - Cardiac diet. Discharge Activity: Return to Normal Activity Home Medications: Medications to take at Discharge clopidogrel 75 mg tablet 75 mg PO DAILY 01/07/18 geriatric multivit with iron and minerals tablet 1 tab PO DAILY 01/07/18 spironolactone 25 mg tablet 25 mg PO QAM 01/07/18 aspirin 81 mg tablet,delayed release 81 mg PO DAILY 02/21/18 carvedilol 25 mg tablet 50 mg PO BID 02/21/18 losartan 50 mg tablet 50 mg PO BID 02/21/18 simvastatin 80 mg tablet 80 mg PO QHS 02/21/18 Primary Care Physician: Jonathon Bryant MD [Primary Care Provider] - Please follow up with your Primary Care Physician in: 5 to 7 days. Please Follow Up With: Director Advertising When: in 1 to 2 weeks. Disposition: Home Patient Condition:: Good Medical Necessity - Tobacco Use Smoking Status: Never smoker Meaningful Use Info Meaningful Use Diagnoses (Choose all that apply): None applicable Code Visit Inpatient E&M: 38168 Disch Hosp
== END 2018-02-25 11:13 | disposition home or self-care (01) ==
LOC: ED 14:48 → PCU 15:20
PROVIDERS: Admitting Provider Family Medicine; Emergency Provider Emergency Medicine; Family Provider Family Medicine; PCP Family Medicine; Visit Provider Hospitalist
DX: R55 Syncope and collapse (principal); E78.5 Hyperlipidemia, unspecified; I25.10 Atherosclerotic heart disease of native coronary artery without angina pectoris; I13.0 Hypertensive heart and chronic kidney disease with heart failure and stage 1 through stage 4 chronic kidney disease, or unspecified chronic kidney disease; N18.3 Chronic kidney disease, stage 3 (moderate); R73.9 Hyperglycemia, unspecified; E04.1 Nontoxic single thyroid nodule; D53.9 Nutritional anemia, unspecified; Z95.2 Presence of prosthetic heart valve; Z95.810 Presence of automatic (implantable) cardiac defibrillator; Z79.899 Other long term (current) drug therapy; Z79.82 Long term (current) use of aspirin; Z79.02 Long term (current) use of antithrombotics/antiplatelets; I50.22 Chronic systolic (congestive) heart failure; N17.9 Acute kidney failure, unspecified
CPT/HCPCS: 36415; 71045; 80048; 81001; 82607; 82728; 82746; 83036; 83540; 83550; 83735; 84443; 84484; 85025; 85027; 93005; 96360; 96361; 96372; 99218; 99285; J7030; J7040; A4216; G0378

== ENCOUNTER → 2018-03-01 16:18 | Outpatient (CLI) | payer MEDICARE, OTHER, SELFPAY ==
--- NOTE | 2018-03-01 11:00 | FLU_PTH ---
PATIENT: SOHAN LONDON LOC: JESSIE U#:[id number] AGE/SX: 80/M ROOM: RE03/01/[address]: Dr. Noah Hooker MD : 1945 BED: DIS: SPEC #: [id number] RECD: 03/01/18 16:07 STATUS: ALEXSANDER DENG #: [id number] KENDRICK: 03/01/18 11:[address]: Noah Hooker DEPT: CYTOLOGY RECD BY: Rupert Soto ENTERED: 03/02/18 08:41 SP TYPE: Fluid OTHR DR: Dr. Sohan Bryant MD Tissues: A - Thyroid gland, NOS B - Thyroid gland, NOS Procedures: Pap Stain (control) Special Stain Group II Surgery Specimen Level IV Cell Block Cytospin Fluid Cytology Other HEADER OPERATION: Ultrasound-guided fine needle aspiration right thyroid PRE-OP DIAGNOSIS: Multinodular goiter E04.2 TISSUE SUBMITTED: A ? Right thyroid fluid for cytology (syringe), B ? Fine needle aspiration right thyroid slides x10 DIAGNOSIS CYTOLOGY A. Right thyroid fluid for cytology (cytospin and cell block): Rare benign follicular cells are noted. B. Right thyroid node, FNA (smears): A few clusters of benign follicular cells are noted. The specimen is limited in evaluation due to lack of adequate number of follicular cells. SJ:pola 03/03/18 COMMENT Correlation with clinical, radiologic findings and appropriate follow up are necessary. CYTOLOGY STUDY Slides are reviewed. CYTOLOGY GROSS A - Received is 3 ml of cloudy red fluid labeled with the patient's name and and designated per the requisition as right thyroid. Submitted for cytology preparation including cell block. B - Received are ten smears labeled with the patient's name and designated per the requisition as right thyroid. Submitted for staining. 03/02/18 TC: Cannot code CPT: 80316, 26012, 08951
== END ==
PROVIDERS: Family Provider Family Medicine; PCP Family Medicine; Visit Provider Surgery
DX: E04.2 Nontoxic multinodular goiter (principal)
CPT/HCPCS: 88108; 88161; 88305; 88313

== ENCOUNTER → 2018-03-18 11:36 | Outpatient (CLI) | payer MEDICARE, OTHER, SELFPAY ==
[2018-03-18 15:57] LABS: Anion Gap 8 (5-15); BUN 18 mg/dL (7-18); Calcium,Total 8.7 mg/dL (8.5-10.1); Chloride 105 mmol/L (98-107); Creatinine, Serum 1.29 mg/dL (0.70-1.30); EST Glomerular Filtration Rate 58 mL/min (>60); Est Glom Filt Rate - Afr Amer 70 mL/min (>60); Glucose 98 mg/dL (74-106); Magnesium 1.7 mg/dL (1.6-2.6); Phosphorus 3.3 mg/dL (2.5-4.9); Potassium 4.9 mmol/L (3.5-5.1); Sodium Level 136 mmol/L (136-145)
[2018-03-18 16:03] LABS: Vitamin D,25 Hydroxy 29.2 ng/mL (29.95-100.01)
[2018-03-18 16:21] LABS: PTHIN 47.3 pg/mL (18.4-80.1)
== END ==
PROVIDERS: Family Provider Family Medicine; PCP Family Medicine; Visit Provider Family Medicine
DX: R94.4 Abnormal results of kidney function studies (principal)
CPT/HCPCS: 36415; 80048; 82306; 83735; 83970; 84100

== ENCOUNTER → 2018-03-22 12:48 | Outpatient (CLI) | payer MEDICARE, OTHER, SELFPAY ==
--- NOTE | 2018-03-22 12:53 | US_ITS ---
STUDY: RENAL ULTRASOUND - COMPLETE REASON FOR EXAM: Male, 73 years old. Decreased GFR. TECHNIQUE: Ultrasound evaluation of the kidneys was performed with real-time and static willis-scale imaging. COMPARISON: None. FINDINGS: RIGHT KIDNEY: Normal location of the right kidney, which is normal in size. The right kidney measures 11.9 cm. There is a normal cortex of the right kidney. The renal cortex measures 1.4 cm. There is no right renal mass or cyst. There are no right renal calculi. There is no right hydronephrosis. DISTAL RIGHT URETER: There is non-visualization of the distal right ureter. There is no demonstrated right ureterovesical junction calculus. There is no demonstrated right ureteral jet. LEFT KIDNEY: Normal location of the left kidney, which is normal in size. The left kidney measures 11.2 cm. There is a normal cortex of the left kidney. The renal cortex measures 1.2 cm. There is no left renal mass or cyst. There is a 4 mm echogenic focus thought to be a calcification in the lower pole. There is no left hydronephrosis. DISTAL LEFT URETER: There is non-visualization of the distal left ureter. There is no demonstrated left ureterovesical junction calculus. There is no demonstrated left ureteral jet. BLADDER: The urinary bladder is incompletely distended. There is a normal wall thickness of the distended urinary bladder. There is no demonstrated mass within the urinary bladder. There are no demonstrated bladder calculi. US/Kidney and Bladder IMPRESSION: 1. [Question nonobstructing left renal calculus. 2. Otherwise normal CT of the kidneys and urinary bladder Electronically Signed: Vipul Guardado DO at 17:13 EDT Tel [phone], Service support ,
== END ==
PROVIDERS: Family Provider Family Medicine; PCP Family Medicine; Visit Provider Family Medicine
DX: R94.4 Abnormal results of kidney function studies (principal)
CPT/HCPCS: 76770

== ENCOUNTER → 2018-03-25 09:49 | Outpatient (CLI) | payer MEDICARE, OTHER, SELFPAY ==
--- NOTE | 2018-03-25 09:51 | RDU_ITS ---
Reason For Study: Decreased GFR Right Renal Artery Left Renal Artery Right renal artery ostium 87/32 Left renal artery ostium 50/17 RSV/EDV. PSV/EDV. Right renal artery proximal 97/36 Left renal artery proximal PSV/EDV PSV/EDV. 72/20 . Right renal artery mid 83/29 Left renal artery mid 69/25 PSV/EDV. PSV/EDV . Right renal artery distal 42/15 Left renal artery distal 104/33 PSV/EDV. PSV/EDV. Right RAR 1.90. Left RAR 2.03. Right Renal Parenchyma Left Renal Parenchyma Upper Geoffrey Cortx 12/5 PSV/EDV. UP Cortex 13/6 PSV/EDV. Right upper pole cortex EDR 0.41 . Left upper pole cortex EDR 0.46 . Right upper pole cortex R.I. 0.58 . Left upper pole cortex R.I. 0.53 . Upper Pole Medula 15/6 PSV/EDV. Left upper pole medulla 25/10 Right upper pole medulla EDR 0.4 . PSV/EDV . Right upper pole medulla R.I. Left upper pole medulla EDR 0.4 . 0.58 . Left upper pole medulla R.I. 0.61 . Lower Pole Cortex 9/3 PSV/EDV. Lower Pole Cortx 8/4 PSV/EDV. Right lower pole cortex EDR 0.33 . Left lower pole cortex EDR 0.5 . Right lower pole cortex R.I. 0.70 . Left lower pole cortex R.I. 0.52 . Right lower Pole medulla 10/4 Left lower Pole medulla 11/4 PSV/EDV . PSV/EDV . Right lower pole medulla EDR 0.4 . Left lower pole medulla EDR 0.36 . Right lower pole medulla R.I. Left lower pole medulla R.I. 0.59 . 0.60 . Left Renal Hilar Right Renal Hilar LT Hilar avg 35/13 PSV/EDV . Right Hilar avg 39/15 PSV/EDV. Left hilar acceleration time 22 Right hilar acceleration time 29 m/sec. m/sec. Left Renal Dimensions Right Renal Dimensions Left kidney size 9.94 cm . Right kidney size 9.53 cm . Left cortical dimension 1.11 cm . Right cortical dimension 1.44 cm . Aorta Proximal abdominal aorta 1.80cm x 1.77 cm . Distal abdominal aorta 1.62cm x 1.59 cm . Proximal abdominal aorta peak systolic velocity is 51 cm/sec . Distal abdominal aorta peak systolic velocity is 29 cm/sec . Interpretation Summary Dimensions of the intra-abdominal aorta appear normal, without evidence of aneurysmal dilatation. Renal artery velocities are bilaterally normal. Acceleration times are normal bilaterally. Renal- aortic ratios are also bilaterally normal. There is no evidence of hemodynamically significant renal artery stenosis on either side. Renovascular resistance appears to be bilaterally normal . Cortical dimensions are bilaterally normal. Kidneys appear normal in size bilaterally. Ordering Physician: Jonathon Bryant Referring Physician: Jonathon Bryant Performed By: Codie Lagunas, JASPER, RVT
== END ==
PROVIDERS: Family Provider Family Medicine; PCP Family Medicine; Visit Provider Family Medicine
DX: I10 Essential (primary) hypertension (principal); R94.4 Abnormal results of kidney function studies
CPT/HCPCS: 93975

== ENCOUNTER 2018-05-03 11:30 | Outpatient (RCR) | payer MEDICARE, OTHER, SELFPAY | END 2018-05-03 23:59 | LOC: DC 11:30 | PROVIDERS: Family Provider Family Medicine; PCP Family Medicine; Visit Provider Family Medicine | DX: E11.9 Type 2 diabetes mellitus without complications (principal); Z71.3 Dietary counseling and surveillance | CPT/HCPCS: 97802; 97803; G0108 ==

== ENCOUNTER 2018-05-24 08:54 | Outpatient (RCR) | payer MEDICARE, OTHER, SELFPAY | END 2018-06-03 23:59 | LOC: DC 08:54 | PROVIDERS: Family Provider Family Medicine; PCP Family Medicine; Visit Provider Family Medicine | DX: E11.9 Type 2 diabetes mellitus without complications (principal); Z71.3 Dietary counseling and surveillance | CPT/HCPCS: 97803 ==

== ENCOUNTER → 2018-05-27 11:04 | Outpatient (CLI) | payer MEDICARE, OTHER, SELFPAY ==
[2018-05-27 12:06] LABS: Absolute Lymphocyte Count 1.69 X10^3/ul (0.83-4.51); Absolute Neutrophil Count 3.5 X10^3/uL (2.0-7.7); Basophil# 0.02 X10^3/uL; Basophil% 0.3 % (0-1); Eosinophil# 0.23 X10^3/uL; Eosinophils% 3.6 % (0-5); Hematocrit 40.1 % (40-54); Hemoglobin 13.9 g/dl (13.0-16.5); Lymphocyte # 1.69 X10^3/ul (4.0); Lymphocyte % 26.2 % (19-41); Mean Corp Hgb Conc 34.7 g/gl (32-36); Mean Corpuscular Hgb 32.6 pg (27.0-32.0); Mean Corpuscular Volume 93.9 fL (80-94); Mean Platelet Vol. 10.1 fl (6.2-12.0); Monocyte# 0.98 X10^3/uL; Monocyte% 15.2 % (0-10); Neutrophil % 54.4 % (47-70); Platelet Count 151 K/mm3 (150-450); RBC Distribution Width CV 12.7 % (11.6-14.6); RBC Distribution Width SD 42.7 fl (35.1-43.9); Red Blood Count 4.27 M/mm3 (4.6-6.2); White Blood Count 6.4 K/mm3 (4.4-11.0)
[2018-05-27 12:07] LABS: POSITIVE COUNT NO; POSITIVE DIFFERENTIAL NO; POSITIVE MORPHOLOGY NO
[2018-05-27 12:38] LABS: AST(SGOT) 20 U/L (15-37); Alanine Aminotransfer ALT/SGPT 26 U/L (16-61); Albumin, Serum 3.8 g/dL (3.2-5.0); Alkaline Phosphatase 36 U/L (45-117); Anion Gap 13 (5-15); BUN 17 mg/dL (7-18); BUN/Creat Ratio 13.3 RATIO (10-20); Chloride 100 mmol/L (98-107); Cholesterol 128 mg/dL (200); Creatinine, Serum 1.28 mg/dL (0.70-1.30); EST Glomerular Filtration Rate 58 mL/min (>60); Est Glom Filt Rate - Afr Amer 70 mL/min (>60); Globulin 3.7 g/dL (2.2-4.2); Glucose 98 mg/dL (74-106); High Density Lipoprotein 47 mg/dL; Potassium 4.8 mmol/L (3.5-5.1); Protein, Total 7.5 g/dL (6.4-8.2); Sodium Level 134 mmol/L (136-145); Triglycerides 98 mg/dL; Very Low Density Lipoprotein 20 mg/dL (5-40)
[2018-05-27 12:42] LABS: Hemoglobin A1c 6.1 % (4.2-6.3); Microalbumin,Random Urine 8.3 mg/L (NO RANGE EST.); Microalbumin:Creatinine Ratio 5.3 mg/g CRE (<30 mg/g CRE)
== END ==
PROVIDERS: Family Provider Family Medicine; PCP Family Medicine; Visit Provider Family Medicine
DX: I10 Essential (primary) hypertension (principal); E11.9 Type 2 diabetes mellitus without complications
CPT/HCPCS: 36415; 80053; 80061; 82043; 82570; 83036; 85025

== ENCOUNTER → 2018-06-10 15:16 | Outpatient (CLI) | payer MEDICARE, OTHER, SELFPAY ==
[2018-06-10 17:56] LABS: Anion Gap 10 (5-15); BUN 19 mg/dL (7-18); Calcium,Total 8.8 mg/dL (8.5-10.1); Chloride 104 mmol/L (98-107); Creatinine, Serum 1.58 mg/dL (0.70-1.30); EST Glomerular Filtration Rate 46 mL/min (>60); Est Glom Filt Rate - Afr Amer 55 mL/min (>60); Glucose 108 mg/dL (74-106); Potassium 4.2 mmol/L (3.5-5.1); Sodium Level 137 mmol/L (136-145)
== END ==
PROVIDERS: Family Provider Family Medicine; PCP Family Medicine; Visit Provider Family Medicine
DX: N18.3 Chronic kidney disease, stage 3 (moderate) (principal)
CPT/HCPCS: 36415; 80048

== ENCOUNTER 2018-06-28 13:00 | Outpatient (RCR) | payer MEDICARE, OTHER, SELFPAY | END 2018-07-03 23:59 | LOC: DC 13:00 | PROVIDERS: Family Provider Family Medicine; PCP Family Medicine; Visit Provider Family Medicine | DX: E11.9 Type 2 diabetes mellitus without complications (principal); Z71.3 Dietary counseling and surveillance | CPT/HCPCS: 97803; G0109 ==

== ENCOUNTER 2018-07-07 08:37 | Outpatient (RCR) | payer MEDICARE, OTHER, SELFPAY | END 2018-08-03 23:59 | LOC: DC 08:37 | PROVIDERS: Family Provider Family Medicine; PCP Family Medicine; Visit Provider Family Medicine | DX: E11.9 Type 2 diabetes mellitus without complications (principal); Z71.3 Dietary counseling and surveillance | CPT/HCPCS: G0109 ==

== ENCOUNTER → 2018-07-20 11:20 | Outpatient (CLI) | payer MEDICARE, OTHER, SELFPAY ==
[2018-07-20 12:53] LABS: Anion Gap 7 (5-15); BUN 14 mg/dL (7-18); Calcium,Total 9.1 mg/dL (8.5-10.1); Chloride 101 mmol/L (98-107); Creatinine, Serum 1.17 mg/dL (0.70-1.30); EST Glomerular Filtration Rate 65 mL/min (>60); Est Glom Filt Rate - Afr Amer 78 mL/min (>60); Glucose 100 mg/dL (74-106); Potassium 4.6 mmol/L (3.5-5.1); Sodium Level 131 mmol/L (136-145)
== END ==
PROVIDERS: Family Provider Family Medicine; PCP Family Medicine; Visit Provider Family Medicine
DX: N18.3 Chronic kidney disease, stage 3 (moderate) (principal)
CPT/HCPCS: 36415; 80048

== ENCOUNTER → 2018-08-12 11:09 | Outpatient (CLI) | payer MEDICARE, OTHER, SELFPAY ==
[2018-08-12 11:12] LABS: Bacteria 0 SEEN /hpf (None Seen); Mucous, Urine 0 SEEN /hpf (<or=2+); Red Blood Cells-Urine 0 SEEN /hpf (0-5); Squamous Epithelial Cells - UA 0 SEEN /hpf (0-5); White Blood Cells 0 SEEN /hpf (0-5)
[2018-08-12 12:23] LABS: Absolute Lymphocyte Count 1.67 X10^3/ul (0.83-4.51); Absolute Neutrophil Count 3.5 X10^3/uL (2.0-7.7); Basophil# 0.03 X10^3/uL; Basophil% 0.5 % (0-1); Eosinophil# 0.21 X10^3/uL; Eosinophils% 3.4 % (0-5); Hematocrit 36.8 % (40-54); Hemoglobin 12.7 g/dl (13.0-16.5); Lymphocyte # 1.67 X10^3/ul (4.0); Lymphocyte % 27.2 % (19-41); Mean Corp Hgb Conc 34.5 g/gl (32-36); Mean Corpuscular Hgb 32.8 pg (27.0-32.0); Mean Corpuscular Volume 95.1 fL (80-94); Mean Platelet Vol. 10.2 fl (6.2-12.0); Monocyte# 0.72 X10^3/uL; Monocyte% 11.7 % (0-10); Neutrophil # 3.51 X10^3/uL (2.7-7.7); Platelet Count 158 K/mm3 (150-450); RBC Distribution Width CV 13.1 % (11.6-14.6); RBC Distribution Width SD 45.5 fl (35.1-43.9); Red Blood Count 3.87 M/mm3 (4.6-6.2); White Blood Count 6.2 K/mm3 (4.4-11.0)
[2018-08-12 12:31] LABS: POSITIVE COUNT NO; POSITIVE DIFFERENTIAL NO; POSITIVE MORPHOLOGY NO
[2018-08-12 12:46] LABS: Color, Urine Yellow (Yellow); Glucose, Dipstick Normal (Normal); Ketone-Dipstick 5 mg/dl (Negative); Leukocyte Esterase-Dipstick 25 /ul (Negative); Nitrite-Dipstick Negative (Negative); Occult Blood-Urine Negative /ul (Negative); Protein-Dipstick 15 mg/dl (Negative); Specific Gravity, Urine 1.015 (1.002-1.030); Urine Bilirubin Dipstick Negative (Negative); Urine Clarity Clear (Clear); Urine Urobilinogen 1 mg/dl (Normal)
[2018-08-12 12:50] LABS: ALB/GLOB Ratio 1.2 RATIO (0.9-2.4); AST(SGOT) 28 U/L (15-37); Alanine Aminotransfer ALT/SGPT 24 U/L (16-61); Albumin, Serum 3.8 g/dL (3.2-5.0); Alkaline Phosphatase 30 U/L (45-117); Anion Gap 9 (5-15); BUN 19 mg/dL (7-18); BUN/Creat Ratio 15.8 RATIO (10-20); Calcium,Total 8.7 mg/dL (8.5-10.1); Chloride 98 mmol/L (98-107); Cholesterol 129 mg/dL (200); EST Glomerular Filtration Rate 63 mL/min (>60); Est Glom Filt Rate - Afr Amer 76 mL/min (>60); Globulin 3.3 g/dL (2.2-4.2); Glucose 80 mg/dL (74-106); High Density Lipoprotein 44 mg/dL; Potassium 4.2 mmol/L (3.5-5.1); Protein, Total 7.1 g/dL (6.4-8.2); Sodium Level 129 mmol/L (136-145); Triglycerides 105 mg/dL; Very Low Density Lipoprotein 21 mg/dL (5-40)
[2018-08-12 12:54] LABS: Hemoglobin A1c 6.3 % (4.2-6.3)
[2018-08-12 12:58] LABS: Protein, Urine (Random) 16.6 mg/dL (<11.9); Protein:Creat Ratio 68 mg/g CRE (0-200); Vitamin D,25 Hydroxy 38.9 ng/mL (29.95-100.01)
== END ==
PROVIDERS: Family Provider Family Medicine; PCP Family Medicine; Visit Provider Family Medicine
DX: E11.22 Type 2 diabetes mellitus with diabetic chronic kidney disease (principal); I12.9 Hypertensive chronic kidney disease with stage 1 through stage 4 chronic kidney disease, or unspecified chronic kidney disease; N18.3 Chronic kidney disease, stage 3 (moderate); E78.5 Hyperlipidemia, unspecified; E55.9 Vitamin D deficiency, unspecified
CPT/HCPCS: 36415; 80053; 80061; 81001; 82306; 82570; 83036; 84156; 85025

== ENCOUNTER → 2018-08-18 16:01 | Outpatient (CLI) | payer MEDICARE, OTHER, SELFPAY ==
[2018-08-18 18:23] LABS: Absolute Lymphocyte Count 2.11 X10^3/ul (0.83-4.51); Absolute Neutrophil Count 3.2 X10^3/uL (2.0-7.7); Basophil# 0.04 X10^3/uL; Basophil% 0.6 % (0-1); Eosinophil# 0.26 X10^3/uL; Eosinophils% 3.8 % (0-5); Hematocrit 38.9 % (40-54); Hemoglobin 13.5 g/dl (13.0-16.5); Lymphocyte # 2.11 X10^3/ul (4.0); Lymphocyte % 31.2 % (19-41); Mean Corp Hgb Conc 34.7 g/gl (32-36); Mean Corpuscular Hgb 33.1 pg (27.0-32.0); Mean Corpuscular Volume 95.3 fL (80-94); Mean Platelet Vol. 10.3 fl (6.2-12.0); Monocyte# 1.15 X10^3/uL; Neutrophil # 3.18 X10^3/uL (2.7-7.7); Platelet Count 176 K/mm3 (150-450); RBC Distribution Width CV 12.8 % (11.6-14.6); RBC Distribution Width SD 43.5 fl (35.1-43.9); Red Blood Count 4.08 M/mm3 (4.6-6.2); White Blood Count 6.8 K/mm3 (4.4-11.0)
[2018-08-18 18:27] LABS: POSITIVE COUNT NO; POSITIVE DIFFERENTIAL NO; POSITIVE MORPHOLOGY NO
[2018-08-18 18:35] LABS: Vitamin B12 404 pg/mL (211-911)
[2018-08-18 19:11] LABS: Anion Gap 12 (5-15); BUN 19 mg/dL (7-18); BUN/Creat Ratio 14.7 RATIO (10-20); Calcium,Total 8.9 mg/dL (8.5-10.1); Chloride 102 mmol/L (98-107); Creatinine, Serum 1.29 mg/dL (0.70-1.30); EST Glomerular Filtration Rate 58 mL/min (>60); Est Glom Filt Rate - Afr Amer 70 mL/min (>60); Ferritin 203 ng/mL (26-388); Glucose 82 mg/dL (74-106); Iron 67 ug/dL (65-175); Iron Binding Capacity,Total 290 ug/dL (250-450); Potassium 4.5 mmol/L (3.5-5.1); Sodium Level 134 mmol/L (136-145)
== END ==
PROVIDERS: Family Provider Family Medicine; PCP Family Medicine; Visit Provider Family Medicine
DX: E87.1 Hypo-osmolality and hyponatremia (principal); D64.9 Anemia, unspecified
CPT/HCPCS: 36415; 80048; 82607; 82728; 82746; 83540; 83550; 85025

== ENCOUNTER → 2018-11-14 11:35 | Outpatient (CLI) | payer MEDICARE, OTHER, SELFPAY ==
[2018-11-14 15:59] LABS: Absolute Lymphocyte Count 1.95 X10^3/ul (0.83-4.51); Basophil# 0.03 X10^3/uL; Basophil% 0.4 % (0-1); Eosinophil# 0.15 X10^3/uL; Eosinophils% 2.1 % (0-5); Hematocrit 42.2 % (40-54); Hemoglobin 14.1 g/dl (13.0-16.5); Lymphocyte # 1.95 X10^3/ul (4.0); Lymphocyte % 27.7 % (19-41); Mean Corp Hgb Conc 33.4 g/gl (32-36); Mean Corpuscular Volume 95.9 fL (80-94); Mean Platelet Vol. 10.7 fl (6.2-12.0); Monocyte# 0.87 X10^3/uL; Monocyte% 12.3 % (0-10); Neutrophil # 4.03 X10^3/uL (2.7-7.7); Neutrophil % 57.2 % (47-70); Platelet Count 169 K/mm3 (150-450); RBC Distribution Width CV 13.1 % (11.6-14.6); RBC Distribution Width SD 44.5 fl (35.1-43.9); White Blood Count 7.1 K/mm3 (4.4-11.0)
[2018-11-14 16:02] LABS: POSITIVE COUNT NO; POSITIVE DIFFERENTIAL NO; POSITIVE MORPHOLOGY NO
[2018-11-14 16:07] LABS: ALB/GLOB Ratio 1.2 RATIO (0.9-2.4); AST(SGOT) 21 U/L (15-37); Alanine Aminotransfer ALT/SGPT 28 U/L (16-61); Alkaline Phosphatase 31 U/L (45-117); Anion Gap 12 (5-15); BUN 19 mg/dL (7-18); BUN/Creat Ratio 13.1 RATIO (10-20); Chloride 102 mmol/L (98-107); Cholesterol 160 mg/dL (200); Creatinine, Serum 1.45 mg/dL (0.70-1.30); EST Glomerular Filtration Rate 50 mL/min (>60); Est Glom Filt Rate - Afr Amer 61 mL/min (>60); Globulin 3.2 g/dL (2.2-4.2); Glucose 91 mg/dL (74-106); High Density Lipoprotein 48 mg/dL; Potassium 4.9 mmol/L (3.5-5.1); Protein, Total 7.2 g/dL (6.4-8.2); Sodium Level 135 mmol/L (136-145); Triglycerides 106 mg/dL; Very Low Density Lipoprotein 21 mg/dL (5-40)
[2018-11-14 16:14] LABS: Hemoglobin A1c 6.4 % (4.2-6.3)
[2018-11-14 16:33] LABS: Microalbumin,Random Urine 19.7 mg/L (NO RANGE EST.); Microalbumin:Creatinine Ratio 5.6 mg/g CRE (<30 mg/g CRE)
== END ==
PROVIDERS: Family Provider Family Medicine; PCP Family Medicine; Visit Provider Family Medicine
DX: E11.9 Type 2 diabetes mellitus without complications (principal); I10 Essential (primary) hypertension; E78.5 Hyperlipidemia, unspecified
CPT/HCPCS: 36415; 80053; 80061; 82043; 82570; 83036; 85025

== ENCOUNTER → 2019-02-11 | Outpatient (CLI) | payer MEDICARE, OTHER, SELFPAY ==
[2019-02-11 09:01] LABS: Absolute Lymphocyte Count 1.63 X10^3/ul (0.83-4.51); Absolute Neutrophil Count 5.6 X10^3/uL (2.0-7.7); Basophil# 0.02 X10^3/uL; Basophil% 0.2 % (0-1); Eosinophil# 0.16 X10^3/uL; Eosinophils% 1.9 % (0-5); Hematocrit 41.6 % (40-54); Hemoglobin 14.4 g/dl (13.0-16.5); Lymphocyte # 1.63 X10^3/ul (4.0); Lymphocyte % 19.6 % (19-41); Mean Corp Hgb Conc 34.6 g/gl (32-36); Mean Corpuscular Hgb 31.9 pg (27.0-32.0); Mean Corpuscular Volume 92.2 fL (80-94); Mean Platelet Vol. 10.7 fl (6.2-12.0); Monocyte# 0.93 X10^3/uL; Monocyte% 11.2 % (0-10); Neutrophil # 5.55 X10^3/uL (2.7-7.7); Platelet Count 148 K/mm3 (150-450); RBC Distribution Width CV 13.2 % (11.6-14.6); RBC Distribution Width SD 43.8 fl (35.1-43.9); Red Blood Count 4.51 M/mm3 (4.6-6.2); White Blood Count 8.3 K/mm3 (4.4-11.0)
[2019-02-11 09:14] LABS: POSITIVE COUNT NO; POSITIVE DIFFERENTIAL NO; POSITIVE MORPHOLOGY NO
[2019-02-11 09:24] LABS: ALB/GLOB Ratio 1.1 RATIO (0.9-2.4); AST(SGOT) 19 U/L (15-37); Alanine Aminotransfer ALT/SGPT 25 U/L (16-61); Albumin, Serum 3.8 g/dL (3.2-5.0); Alkaline Phosphatase 36 U/L (45-117); Anion Gap 12 (5-15); BUN 15 mg/dL (7-18); Calcium,Total 8.7 mg/dL (8.5-10.1); Chloride 103 mmol/L (98-107); Cholesterol 135 mg/dL (200); Creatinine, Serum 1.15 mg/dL (0.70-1.30); EST Glomerular Filtration Rate 66 mL/min (>60); Est Glom Filt Rate - Afr Amer 80 mL/min (>60); Globulin 3.5 g/dL (2.2-4.2); Glucose 95 mg/dL (74-106); High Density Lipoprotein 50 mg/dL; Potassium 4.4 mmol/L (3.5-5.1); Protein, Total 7.3 g/dL (6.4-8.2); Sodium Level 137 mmol/L (136-145); Triglycerides 76 mg/dL; Very Low Density Lipoprotein 15 mg/dL (5-40)
[2019-02-13 09:48] LABS: Vitamin D,25 Hydroxy 39.2 ng/mL (29.95-100.01)
== END | disposition home or self-care (01) ==
LOC: LAB 07:04
PROVIDERS: Family Provider Family Medicine; PCP Family Medicine; Referring Provider Family Medicine; Visit Provider Family Medicine
DX: E55.9 Vitamin D deficiency, unspecified (principal); E11.9 Type 2 diabetes mellitus without complications; E78.5 Hyperlipidemia, unspecified
CPT/HCPCS: 36415; 80053; 80061; 82306; 83036; 85025

== ENCOUNTER → 2019-06-24 06:54 | Outpatient (CLI) | payer MEDICARE, OTHER, SELFPAY ==
[2019-06-24 08:12] LABS: Absolute Lymphocyte Count 1.65 X10^3/uL (0.83-4.51); Absolute Neutrophil Count 3.6 X10^3/uL (2.0-7.7); Basophil# 0.05 X10^3/uL; Basophil% 0.8 % (0-1); Eosinophil# 0.22 X10^3/uL; Eosinophils% 3.4 % (0-5); Hematocrit 41.6 % (40-54); Hemoglobin 13.9 g/dL (13.0-16.5); Lymphocyte # 1.65 X10^3/ul (4.0); Lymphocyte % 25.6 % (19-41); Mean Corp Hgb Conc 33.4 g/dL (32-36); Mean Corpuscular Volume 95.9 fL (80-94); Mean Platelet Vol. 10.8 fl (6.2-12.0); Monocyte# 0.91 X10^3/uL; Monocyte% 14.1 % (0-10); NRBC Flagged by Analyzer 0 % (0-5); Neutrophil % 55.9 % (47-70); Platelet Count 142 K/mm3 (150-450); RBC Distribution Width CV 13.4 % (11.6-14.6); RBC Distribution Width SD 47.8 fl (35.1-43.9); Red Blood Count 4.34 M/mm3 (4.6-6.2); White Blood Count 6.4 K/mm3 (4.4-11.0)
[2019-06-24 08:34] LABS: Microalbumin,Random Urine 7.1 mg/L (NO RANGE EST.); Microalbumin:Creatinine Ratio 4.7 mg/g CRE (<30 mg/g CRE)
[2019-06-24 08:41] LABS: AST(SGOT) 25 U/L (15-37); Alanine Aminotransfer ALT/SGPT 25 U/L (16-61); Albumin, Serum 3.6 g/dL (3.2-5.0); Alkaline Phosphatase 32 U/L (45-117); Anion Gap 10 (5-15); BUN 17 mg/dL (7-18); BUN/Creat Ratio 14.5 RATIO (10-20); Calcium,Total 8.7 mg/dL (8.5-10.1); Chloride 106 mmol/L (98-107); Cholesterol 135 mg/dL (200); Creatinine, Serum 1.17 mg/dL (0.70-1.30); EST Glomerular Filtration Rate 64 mL/min (>60); Est Glom Filt Rate - Afr Amer 78 mL/min (>60); Globulin 3.6 g/dL (2.2-4.2); Glucose 99 mg/dL (74-106); High Density Lipoprotein 49 mg/dL; Potassium 4.5 mmol/L (3.5-5.1); Protein, Total 7.2 g/dL (6.4-8.2); Sodium Level 139 mmol/L (136-145); Triglycerides 81 mg/dL; Very Low Density Lipoprotein 16 mg/dL (5-40)
[2019-06-24 09:35] LABS: Hemoglobin A1c 6.2 % (4.2-6.3)
== END ==
PROVIDERS: Family Provider Family Medicine; PCP Family Medicine; Referring Provider Family Medicine; Visit Provider Family Medicine
DX: E11.22 Type 2 diabetes mellitus with diabetic chronic kidney disease (principal); N18.3 Chronic kidney disease, stage 3 (moderate); E78.5 Hyperlipidemia, unspecified
CPT/HCPCS: 36415; 80053; 80061; 82043; 82570; 83036; 85025

== ENCOUNTER → 2019-10-14 07:03 | Outpatient (CLI) | payer MEDICARE, OTHER, SELFPAY ==
[2019-10-14 08:26] LABS: Absolute Lymphocyte Count 1.74 X10^3/uL (0.83-4.51); Absolute Neutrophil Count 3.3 X10^3/uL (2.0-7.7); Basophil# 0.04 X10^3/uL; Basophil% 0.6 % (0-1); Eosinophil# 0.26 X10^3/uL; Eosinophils% 4.2 % (0-5); Hematocrit 42.4 % (40-54); Hemoglobin 14.9 g/dL (13.0-16.5); Lymphocyte # 1.74 X10^3/ul (4.0); Lymphocyte % 28.1 % (19-41); Mean Corp Hgb Conc 35.1 g/dL (32-36); Mean Corpuscular Hgb 33.3 pg (27.0-32.0); Mean Corpuscular Volume 94.9 fL (80-94); Mean Platelet Vol. 10.5 fl (6.2-12.0); Monocyte# 0.86 X10^3/uL; Monocyte% 13.9 % (0-10); NRBC Flagged by Analyzer 0 % (0-5); Neutrophil # 3.27 X10^3/uL (2.7-7.7); Neutrophil % 52.9 % (47-70); Platelet Count 159 K/mm3 (150-450); RBC Distribution Width SD 45.1 fl (35.1-43.9); Red Blood Count 4.47 M/mm3 (4.6-6.2); White Blood Count 6.2 K/mm3 (4.4-11.0)
[2019-10-14 08:41] LABS: Protein:Creat Ratio 105 mg/g CRE (0-200)
[2019-10-14 09:03] LABS: AST(SGOT) 16 U/L (15-37); Alanine Aminotransfer ALT/SGPT 27 U/L (16-61); Albumin, Serum 3.8 g/dL (3.2-5.0); Alkaline Phosphatase 35 U/L (45-117); Anion Gap 9 (5-15); BUN 17 mg/dL (7-18); BUN/Creat Ratio 13.7 RATIO (10-20); Calcium,Total 9.2 mg/dL (8.5-10.1); Chloride 103 mmol/L (98-107); Cholesterol 143 mg/dL (200); Creatinine, Serum 1.24 mg/dL (0.70-1.30); EST Glomerular Filtration Rate 60 mL/min (>60); Est Glom Filt Rate - Afr Amer 73 mL/min (>60); Globulin 3.7 g/dL (2.2-4.2); Glucose 102 mg/dL (74-106); High Density Lipoprotein 49 mg/dL; Potassium 4.5 mmol/L (3.5-5.1); Protein, Total 7.5 g/dL (6.4-8.2); Sodium Level 135 mmol/L (136-145); Thyroid Stim Hormone (TSH) 2.03 uIU/mL (0.358-3.74); Triglycerides 84 mg/dL; Very Low Density Lipoprotein 17 mg/dL (5-40)
[2019-10-14 09:07] LABS: Hemoglobin A1c 6.3 % (4.2-6.3)
[2019-10-16 09:54] LABS: Vitamin D,25 Hydroxy 39.9 ng/mL (29.95-100.01)
== END ==
PROVIDERS: Family Provider Family Medicine; PCP Family Medicine; Referring Provider Family Medicine; Visit Provider Family Medicine
DX: I10 Essential (primary) hypertension (principal); E11.9 Type 2 diabetes mellitus without complications; E55.9 Vitamin D deficiency, unspecified; E78.5 Hyperlipidemia, unspecified
CPT/HCPCS: 36415; 80053; 80061; 82306; 82570; 83036; 84156; 84443; 85025

== ENCOUNTER → 2019-10-27 17:17 | Outpatient (CLI) | payer MEDICARE, OTHER, SELFPAY ==
--- NOTE | 2019-10-27 17:20 | US_ITS ---
STUDY: THYROID ULTRASOUND REASON FOR EXAM: Male, 74 years old. NODULES TECHNIQUE: Ultrasound evaluation of the thyroid was performed with real-time and static henning-scale imaging. COMPARISON: 02/14/2018. FINDINGS: RIGHT LOBE: The right lobe of the thyroid gland measures 4.9 x 2.4 x 2.2 cm. There is a homogeneous echotexture. Within the lower pole of the right thyroid lobe there is a complex nodule measuring 2.5 x 2.4 x 2.1 cm with small calcifications within the wall, partial cystic changes and anterior color flow. This is stable in the interval. A second nodule is seen within the upper pole, with diffuse decreased echogenicity and hypoechoic rim. This is stable. There are irregular margins of the thyroid nodules. LEFT LOBE: The left lobe of the thyroid gland measures 4.7 x 1.8 x 1.9 cm. There is a homogeneous echotexture. Within the left thyroid lobe there are multiple solid, hypoechoic nodules, largest seen within the lower pole and measuring 0.6 x 0.5 x 0.5 cm. This reveals peripheral color flow and has regular margins. ISTHMUS: The isthmus measures 0.3 cm. There is a round nodule with decreased echogenicity and hypoechoic visualized within the isthmus and measuring 0.8 x 0.8 x 0.7 cm. There is peripheral and internal color flow. The margins are regular. The regional lymph nodes are normal. US/Thyroid IMPRESSION: Multiple bilateral thyroid lobe nodules as described above and essentially stable in the interval. The morphology and stability of the thyroid nodules favor a benign process. If indicated, follow-up recommended in 6-12 months to document stability. Electronically Signed: Tressa Reynolds MD at 1:44 EST , Service support ,
== END ==
LOC: US 17:18
PROVIDERS: PCP Family Medicine; Referring Provider Family Medicine; Visit Provider Family Medicine
DX: E04.2 Nontoxic multinodular goiter (principal)
CPT/HCPCS: 76536

== ENCOUNTER → 2020-02-19 06:56 | Outpatient (CLI) | payer MEDICARE, OTHER, SELFPAY ==
[2020-02-19 08:00] LABS: ALB/GLOB Ratio 1.1 RATIO (0.9-2.4); AST(SGOT) 19 U/L (15-37); Alanine Aminotransfer ALT/SGPT 23 U/L (16-61); Albumin, Serum 3.8 g/dL (3.2-5.0); Alkaline Phosphatase 34 U/L (45-117); Anion Gap 4 (5-15); BUN 19 mg/dL (7-18); BUN/Creat Ratio 14.7 RATIO (10-20); Calcium,Total 9.3 mg/dL (8.5-10.1); Chloride 107 mmol/L (98-107); Cholesterol 143 mg/dL (200); Creatinine, Serum 1.29 mg/dL (0.70-1.30); EST Glomerular Filtration Rate 57 mL/min (>60); Est Glom Filt Rate - Afr Amer 70 mL/min (>60); Globulin 3.6 g/dL (2.2-4.2); Glucose 104 mg/dL (74-106); High Density Lipoprotein 49 mg/dL; Potassium 4.8 mmol/L (3.5-5.1); Protein, Total 7.4 g/dL (6.4-8.2); Sodium Level 139 mmol/L (136-145); Triglycerides 88 mg/dL; Very Low Density Lipoprotein 18 mg/dL (5-40)
[2020-02-19 08:17] LABS: Hemoglobin A1c 6.3 % (4.2-6.3)
[2020-02-19 09:10] LABS: Vitamin D,25 Hydroxy 50.5 ng/mL
== END ==
PROVIDERS: PCP Family Medicine; Referring Provider Family Medicine; Visit Provider Family Medicine
DX: E78.5 Hyperlipidemia, unspecified (principal); I10 Essential (primary) hypertension; E11.9 Type 2 diabetes mellitus without complications; E55.9 Vitamin D deficiency, unspecified
CPT/HCPCS: 36415; 80053; 80061; 82306; 83036

== ENCOUNTER → 2020-07-10 14:43 | Outpatient (CLI) | payer MEDICARE, OTHER, SELFPAY ==
[2020-06-20 14:46] VITALS: BMI 24.5
--- NOTE | 2020-07-10 14:44 | ECHOD_ITS ---
Reason For Study: VALVE REPL Procedure This was a 2D Doppler, Color Flow transthoracic echocardiogram. Contrast injection was performed. Exam performed in department. Left Ventricle Normal LV size. Moderate segmental systolic dysfunction (see wall motion). The estimated ejection fraction is 35 %. There is evidence of diastolic dysfunction. Infero-Basal: Hypokinetic. Mid- Anterior : Hypokinetic. Mid-Lateral : Hypokinetic. Mid-Posterior: Hypokinetic. Mid-Inferior: Hypokinetic. Mid-inferoseptal : Hypokinetic. Anterior Jarratt : Hypokinetic. Inferior Jarratt : Not visualized. Lateral Jarratt : Hypokinetic. Septal Jarratt : Hypokinetic. Right Ventricle Normal RV size. ICD or pacer leads identified within the right ventricle. Normal systolic function. Atria The left atrium is moderately enlarged. Normal right atrium. ICD or pacer leads identified within the right atrium. No doppler evidence for ASD. Mitral Valve There is no mitral annular calcification. Mild diffuse mitral valve thickening. Mild mitral valve prolapse. Mild (1+) mitral valve insufficiency. Tricuspid Valve Normal tricuspid valve. Mild to moderate (1-2+) tricuspid valve insufficiency. Right ventricular systolic pressure estimated to be 39 mmHg. Aortic Valve Stable appearing bioprosthetic aortic valve apparatus. Pulmonic Valve The pulmonic valve is not well visualized. Mild (1+) pulmonic valve insufficiency. Great Vessels Normal sized aortic root. Pericardium/Pleural No pericardial effusion. MMode/2D Measurements & Calculations LVIDd: 4.7 cm IVSd: 0.99 cm LVOT diam: 2.0 cm LVIDs: 3.6 cm LVPWd: 0.81 cm LVOT area: 3.2 cm2 RVDd: 4.1 cm FS: 22.3 % Ao root diam: 3.5 cm LAV(MOD-bp): 76.5 ml LA A4 area: 25.2 cm2 LAV(MOD-bp) Indexed: 40.1 ml/m2 LAV(MOD-sp2): 64.4 ml LAV(MOD-sp4): 83.6 ml LA dimension(2D): 4.8 cm RA A4 area: 14.2 cm2 Time Measurements MV dec time: 0.28 sec Doppler Measurements & Calculations MV E max tristan: 66.5 cm/sec Lat Peak E' Tristan: 8.2 cm/sec Med Peak E' Tristan: 3.4 cm/sec MV A max tristan: 88.0 cm/sec E/E' lat: 8.1 E/E' med: 19.4 MV E/A: 0.76 Ao V2 max: 132.7 cm/sec LV V1 max: 110.4 cm/sec SV(LVOT): 63.2 ml Ao max P.1 mmHg LV V1 max P.9 mmHg Ao V2 mean: 92.5 cm/sec LV V1 mean P.5 mmHg Ao mean P.8 mmHg LV V1 mean: 73.2 cm/sec Ao V2 VTI: 22.9 cm LV V1 VTI: 19.4 cm KAI(I,D): 2.8 cm2 KAI(V,D): 2.7 cm2 PA V2 max: 90.8 cm/sec PI end-d trsitan: 124.3 cm/sec TR max tristan: 300.7 cm/sec TR max P.2 mmHg Interpretation Summary Moderate segmental systolic dysfunction (see wall motion). The estimated ejection fraction is 35 %. The left atrium is moderately enlarged. Mild diffuse mitral valve thickening. Mild mitral valve prolapse. Mild (1+) mitral valve insufficiency. Mild to moderate (1-2+) tricuspid valve insufficiency. Stable appearing bioprosthetic aortic valve apparatus. Mild (1+) pulmonic valve insufficiency. Right ventricular systolic pressure estimated to be 39 mmHg. There is evidence of diastolic dysfunction. Ordering Physician: Ulises Styles Referring Physician: SOHAN BERNAL Performed By: Mary Kay Brown, RDCS, RVT
== END ==
PROVIDERS: PCP Family Medicine; Referring Provider Internal Medicine Cardiovascular Disease; Visit Provider Internal Medicine Cardiovascular Disease
DX: I34.0 Nonrheumatic mitral (valve) insufficiency (principal); I25.10 Atherosclerotic heart disease of native coronary artery without angina pectoris; Z95.5 Presence of coronary angioplasty implant and graft; Z95.1 Presence of aortocoronary bypass graft; Z95.3 Presence of xenogenic heart valve; I47.2 Ventricular tachycardia; Z95.810 Presence of automatic (implantable) cardiac defibrillator; I25.5 Ischemic cardiomyopathy; E78.2 Mixed hyperlipidemia; I10 Essential (primary) hypertension
CPT/HCPCS: 93306

== ENCOUNTER → 2020-08-27 12:33 | Outpatient (CLI) | payer MEDICARE, OTHER, SELFPAY ==
[2020-06-20 14:46] VITALS: BMI 24.5
[2020-08-27 15:36] LABS: ALB/GLOB Ratio 1.1 RATIO (0.9-2.4); AST(SGOT) 20 U/L (15-37); Alanine Aminotransfer ALT/SGPT 28 U/L (16-61); Albumin, Serum 4.1 g/dL (3.2-5.0); Alkaline Phosphatase 31 U/L (45-117); Anion Gap 7 (5-15); BUN 15 mg/dL (7-18); BUN/Creat Ratio 12.8 RATIO (10-20); Calcium,Total 9.3 mg/dL (8.5-10.1); Chloride 100 mmol/L (98-107); Cholesterol 147 mg/dL (200); Creatinine, Serum 1.17 mg/dL (0.70-1.30); EST Glomerular Filtration Rate 64 mL/min (>60); Est Glom Filt Rate - Afr Amer 78 mL/min (>60); Globulin 3.6 g/dL (2.2-4.2); Glucose 80 mg/dL (74-106); High Density Lipoprotein 50 mg/dL; Magnesium 1.7 mg/dL (1.6-2.6); Potassium 4.6 mmol/L (3.5-5.1); Protein, Total 7.7 g/dL (6.4-8.2); Sodium Level 134 mmol/L (136-145); Triglycerides 98 mg/dL; Very Low Density Lipoprotein 20 mg/dL (5-40); Vitamin D,25 Hydroxy 39.2 ng/mL
[2020-08-27 15:41] LABS: Microalbumin:Creatinine Ratio 6.4 mg/g CRE (<30 mg/g CRE)
[2020-08-27 17:47] LABS: Absolute Lymphocyte Count 2.16 X10^3/uL (0.83-4.51); Absolute Neutrophil Count 3.2 X10^3/uL (2.0-7.7); Basophil# 0.05 X10^3/uL; Basophil% 0.8 % (0-1); Eosinophil# 0.22 X10^3/uL; Eosinophils% 3.3 % (0-5); Hematocrit 42.4 % (40-54); Hemoglobin 14.4 g/dL (13.0-16.5); Lymphocyte # 2.16 X10^3/ul (4.0); Lymphocyte % 32.6 % (19-41); Mean Corpuscular Hgb 33.6 pg (27.0-32.0); Mean Corpuscular Volume 99.1 fL (80-94); Mean Platelet Vol. 10.6 fl (6.2-12.0); Monocyte# 0.97 X10^3/uL; Monocyte% 14.6 % (0-10); NRBC Flagged by Analyzer 0 % (0-5); Neutrophil # 3.21 X10^3/uL (2.7-7.7); Neutrophil % 48.4 % (47-70); Platelet Count 156 K/mm3 (150-450); RBC Distribution Width CV 14.4 % (11.6-14.6); RBC Distribution Width SD 51.3 fl (35.1-43.9); Red Blood Count 4.28 M/mm3 (4.6-6.2); White Blood Count 6.6 K/mm3 (4.4-11.0)
[2020-08-27 18:16] LABS: Hemoglobin A1c 5.9 % (3.8-5.6)
== END ==
PROVIDERS: PCP Family Medicine; Referring Provider Family Medicine; Visit Provider Family Medicine
DX: E55.9 Vitamin D deficiency, unspecified (principal); E11.9 Type 2 diabetes mellitus without complications; E78.5 Hyperlipidemia, unspecified; I11.0 Hypertensive heart disease with heart failure; I50.22 Chronic systolic (congestive) heart failure
CPT/HCPCS: 36415; 80053; 80061; 82043; 82306; 82570; 83036; 83735; 85025

== ENCOUNTER → 2020-12-14 07:14 | Outpatient (CLI) | payer MEDICARE, OTHER, SELFPAY ==
[2020-12-11 15:50] VITALS: BMI 24.3
[2020-12-14 07:25] LABS: Bacteria 0 SEEN /hpf (None Seen); Mucous, Urine 0 SEEN /hpf (<or=2+); Red Blood Cells-Urine 0 SEEN /hpf (0-5); White Blood Cells 0 SEEN /hpf (0-5)
[2020-12-14 08:06] LABS: Absolute Lymphocyte Count 1.59 X10^3/uL (0.83-4.51); Absolute Neutrophil Count 4.8 X10^3/uL (2.0-7.7); Basophil# 0.03 X10^3/uL; Basophil% 0.4 % (0-1); Eosinophil# 0.25 X10^3/uL; Eosinophils% 3.3 % (0-5); Hematocrit 43.9 % (40-54); Hemoglobin 14.8 g/dL (13.0-16.5); Lymphocyte # 1.59 X10^3/ul (4.0); Mean Corp Hgb Conc 33.7 g/dL (32-36); Mean Corpuscular Hgb 34.3 pg (27.0-32.0); Mean Corpuscular Volume 101.6 fL (80-94); Mean Platelet Vol. 10.3 fl (6.2-12.0); Monocyte# 0.89 X10^3/uL; Monocyte% 11.8 % (0-10); NRBC Flagged by Analyzer 0 % (0-5); Neutrophil # 4.78 X10^3/uL (2.7-7.7); Neutrophil % 63.1 % (47-70); Platelet Count 139 K/mm3 (150-450); RBC Distribution Width CV 14.6 % (11.6-14.6); RBC Distribution Width SD 54.9 fl (35.1-43.9); Red Blood Count 4.32 M/mm3 (4.6-6.2); White Blood Count 7.6 K/mm3 (4.4-11.0)
[2020-12-14 08:06] LABS: Color, Urine Yellow (Yellow); Glucose, Dipstick Normal (Normal); Ketone-Dipstick Negative (Negative); Leukocyte Esterase-Dipstick 25 /ul (Negative); Nitrite-Dipstick Negative (Negative); Occult Blood-Urine Negative /ul (Negative); Protein-Dipstick Negative (Negative); Urine Bilirubin Dipstick Negative (Negative); Urine Clarity Clear (Clear); Urine Urobilinogen Normal (Normal)
[2020-12-14 08:20] LABS: Squamous Epithelial Cells - UA 0-5 SEEN /hpf (0-5)
[2020-12-14 08:43] LABS: ALB/GLOB Ratio 1.1 RATIO (0.9-2.4); AST(SGOT) 15 U/L (15-37); Alanine Aminotransfer ALT/SGPT 24 U/L (16-61); Albumin, Serum 3.8 g/dL (3.2-5.0); Alkaline Phosphatase 35 U/L (45-117); Anion Gap 5 (5-15); BUN 17 mg/dL (7-18); BUN/Creat Ratio 13.8 RATIO (10-20); Chloride 105 mmol/L (98-107); Cholesterol 144 mg/dL (200); Creatinine, Serum 1.23 mg/dL (0.70-1.30); EST Glomerular Filtration Rate 61 mL/min (>60); Est Glom Filt Rate - Afr Amer 73 mL/min (>60); Globulin 3.6 g/dL (2.2-4.2); Glucose 109 mg/dL (74-106); High Density Lipoprotein 48 mg/dL; Phosphorus 3.1 mg/dL (2.5-4.9); Potassium 4.4 mmol/L (3.5-5.1); Protein, Total 7.4 g/dL (6.4-8.2); Sodium Level 138 mmol/L (136-145); Triglycerides 112 mg/dL; Very Low Density Lipoprotein 22 mg/dL (5-40)
[2020-12-14 08:55] LABS: Vitamin D,25 Hydroxy 41.9 ng/mL
[2020-12-16 09:04] LABS: PTHIN 28.1 pg/mL (18.4-80.1)
== END ==
PROVIDERS: PCP Family Medicine; Referring Provider Family Medicine; Visit Provider Family Medicine
DX: I12.9 Hypertensive chronic kidney disease with stage 1 through stage 4 chronic kidney disease, or unspecified chronic kidney disease (principal); E11.22 Type 2 diabetes mellitus with diabetic chronic kidney disease; N18.2 Chronic kidney disease, stage 2 (mild); E78.5 Hyperlipidemia, unspecified; E55.9 Vitamin D deficiency, unspecified
CPT/HCPCS: 80053; 80061; 81001; 82306; 83036; 83970; 84100; 85025

== ENCOUNTER → 2021-01-03 11:18 | Outpatient (CLI) | payer MEDICARE, OTHER, SELFPAY ==
[2020-12-11 15:50] VITALS: BMI 24.3
--- NOTE | 2021-01-03 11:22 | US_ITS ---
INDICATION: THYROID NODULES EXAMINATION: US Thyroid (eg thyroid, parathyroid, parotid) TECHNIQUE: Barnes scale and color doppler imaging was performed of the thyroid gland. COMPARISON: 10/27/2019. FINDINGS: RIGHT THYROID LOBE: 4.4 x 2.8 x 2 cm. Homogeneous echotexture with normal vascularity. [There is a large heterogeneous solid and cystic nodule in the lower pole measuring 2.3 x 2.2 x 2.3 cm. It is taller than wide, hypoechoic, well-circumscribed and has peripheral calcifications. LEFT THYROID LOBE: 4.3 x 0.9 x 1.6 cm. Homogeneous echotexture with normal vascularity. [No suspicious thyroid nodules are present. Multiple benign-appearing subcentimeter cystic nodules. ISTHMUS: Measures 4 mm.. There is a solid hypoechoic well-circumscribed, wider than tall nodule measuring 0.8 x 0.7 x 0.6 cm. There is also a benign appearing subcentimeter cystic nodule. US/Thyroid IMPRESSION: Multinodular goiter: 2.3 cm TI-RADS 5 nodule in the right lower pole is highly suspicious for malignancy. Recommend FNA. 0.8 cm TI-RADS 4 nodule in the isthmus is moderately suspicious for malignancy. Recommend follow-up thyroid US in one year. Electronically Signed: Ethan Byrd MD at 22:05 EDT Tel , Service support ,
== END ==
PROVIDERS: PCP Family Medicine; Referring Provider Family Medicine; Visit Provider Family Medicine
DX: E04.2 Nontoxic multinodular goiter (principal)
CPT/HCPCS: 76536

== ENCOUNTER → 2021-01-29 | Outpatient (CLI) | payer MEDICARE, OTHER, SELFPAY ==
[2021-01-29 05:48] VITALS: BMI 25.1
--- NOTE | 2021-01-29 12:30 | ASPS_PTH ---
PATIENT: SOHAN LONDON LOC: JESSIE #:[id number] AGE/SX: 75/M ROOM: RE01/29/[address]: Dr. Edd Mclean MD : 1945 BED: DIS: 01/29/2021 SPEC #: [id number] RECD: 01/30/21 06:57 STATUS: ALEXSANDER MARAVILLAJoseph #: [id number] KENDRICK: 01/29/21 12:[address]: Edd Mclean DEPT: CYTOLOGY RECD BY: Lynn James Tissues: A - Thyroid gland, NOS B - Thyroid isthmus Procedures: Special Stain Group II Cytology Other HEADER OPERATION: Right thyroid and isthmus fine needle aspiration PRE-OP DIAGNOSIS: Multiple thyroid nodules TISSUE SUBMITTED: A ? Right thyroid slides x8, B ? Isthmus slides x5 DIAGNOSIS CYTOLOGY A. Right thyroid nodule, FNA (smears): Consistent with benign follicular/colloid nodule. Adequate for evaluation. B. Isthmus nodule, FNA (smears): Consistent with benign follicular/colloid nodule. Adequate for evaluation. YESICA:pola 01/30/2021 COMMENT Correlation with clinical, radiologic findings and appropriate follow up are necessary. CYTOLOGY STUDY Slides are reviewed. CYTOLOGY GROSS A - Received are eight smears labeled with the patient's name and designated per the requisition as right thyroid. Submitted for staining. B - Received are five smears labeled with the patient's name and designated per the requisition as isthmus. Submitted for staining. / pola 01/29/21 TC:5 CPT: 87084 x2
== END | disposition home or self-care (01) ==
LOC: LABSPEC 01-30 07:31
PROVIDERS: Visit Provider Surgery
DX: E04.2 Nontoxic multinodular goiter (principal)
CPT/HCPCS: 88161; 88313

== ENCOUNTER → 2021-08-06 13:50 | Outpatient (CLI) | payer MEDICARE, OTHER, SELFPAY ==
[2021-08-06 15:24] LABS: Absolute Lymphocyte Count 2.13 X10^3/uL (0.83-4.51); Absolute Neutrophil Count 3.8 X10^3/uL (2.0-7.7); Basophil# 0.05 X10^3/uL; Basophil% 0.7 % (0-1); Eosinophil# 0.21 X10^3/uL; Hematocrit 42.3 % (40-54); Hemoglobin 14.7 g/dL (13.0-16.5); Lymphocyte # 2.13 X10^3/ul (0.83-4.51); Lymphocyte % 30.5 % (19-41); Mean Corp Hgb Conc 34.8 g/dL (32-36); Mean Corpuscular Hgb 35.9 pg (27.0-32.0); Mean Corpuscular Volume 103.2 fL (80-94); Mean Platelet Vol. 10.4 fl (6.2-12.0); Monocyte# 0.78 X10^3/uL; Monocyte% 11.2 % (0-10); NRBC Flagged by Analyzer 0 % (0-5); Neutrophil % 54.3 % (47-70); Platelet Count 146 K/mm3 (150-450); RBC Distribution Width CV 13.4 % (11.6-14.6); RBC Distribution Width SD 51.1 fl (35.1-43.9)
[2021-08-06 15:55] LABS: Microalbumin,Random Urine 9.4 mg/L (NO RANGE EST.); Microalbumin:Creatinine Ratio 7.6 mg/g CRE (<30 mg/g CRE)
[2021-08-06 16:04] LABS: Hemoglobin A1c 5.9 % (3.8-5.6)
[2021-08-06 16:34] LABS: AST(SGOT) 18 U/L (15-37); Alanine Aminotransfer ALT/SGPT 26 U/L (16-61); Albumin, Serum 3.7 g/dL (3.2-5.0); Alkaline Phosphatase 41 U/L (45-117); Anion Gap 5 (5-15); BUN 19 mg/dL (7-18); BUN/Creat Ratio 16.1 RATIO (10-20); Calcium,Total 9.1 mg/dL (8.5-10.1); Chloride 104 mmol/L (98-107); Cholesterol 144 mg/dL (200); Creatinine, Serum 1.18 mg/dL (0.70-1.30); EST Glomerular Filtration Rate 63 mL/min (>60); Est Glom Filt Rate - Afr Amer 77 mL/min (>60); Globulin 3.7 g/dL (2.2-4.2); Glucose 86 mg/dL (74-106); High Density Lipoprotein 47 mg/dL; Magnesium 1.8 mg/dL (1.6-2.6); Potassium 4.5 mmol/L (3.5-5.1); Protein, Total 7.4 g/dL (6.4-8.2); Sodium Level 136 mmol/L (136-145); Triglycerides 100 mg/dL; Very Low Density Lipoprotein 20 mg/dL (5-40)
[2021-08-06 17:27] LABS: Vitamin D,25 Hydroxy 46.4 ng/mL
== END ==
PROVIDERS: PCP Family Medicine; Referring Provider Family Medicine; Visit Provider Family Medicine
DX: E11.69 Type 2 diabetes mellitus with other specified complication (principal); E55.9 Vitamin D deficiency, unspecified; E11.22 Type 2 diabetes mellitus with diabetic chronic kidney disease; E11.59 Type 2 diabetes mellitus with other circulatory complications; N18.9 Chronic kidney disease, unspecified
CPT/HCPCS: 36415; 80053; 80061; 82043; 82306; 82570; 83036; 83735; 85025

== ENCOUNTER 2021-12-03 12:55 | Outpatient (CLI) | payer MEDICARE, OTHER, SELFPAY ==
[2021-12-03 15:23] LABS: Absolute Lymphocyte Count 2.21 X10^3/uL (0.83-4.51); Absolute Neutrophil Count 3.4 X10^3/uL (2.0-7.7); Basophil# 0.04 X10^3/uL; Basophil% 0.6 % (0-1); Eosinophil# 0.22 X10^3/uL; Eosinophils% 3.2 % (0-5); Hematocrit 41.1 % (40-54); Hemoglobin 14.8 g/dL (13.0-16.5); Lymphocyte # 2.21 X10^3/ul (0.83-4.51); Lymphocyte % 32.5 % (19-41); Mean Corpuscular Hgb 36.7 pg (27.0-32.0); Mean Platelet Vol. 10.7 fl (6.2-12.0); Monocyte# 0.94 X10^3/uL; Monocyte% 13.8 % (0-10); NRBC Flagged by Analyzer 0 % (0-5); Neutrophil # 3.37 X10^3/uL (2.7-7.7); Neutrophil % 49.5 % (47-70); Platelet Count 139 K/mm3 (150-450); RBC Distribution Width CV 12.9 % (11.6-14.6); RBC Distribution Width SD 48.9 fl (35.1-43.9); Red Blood Count 4.03 M/mm3 (4.6-6.2); White Blood Count 6.8 K/mm3 (4.4-11.0)
[2021-12-03 15:54] LABS: ALB/GLOB Ratio 1.1 RATIO (0.9-2.4); AST(SGOT) 19 U/L (15-37); Alanine Aminotransfer ALT/SGPT 30 U/L (16-61); Albumin, Serum 3.7 g/dL (3.2-5.0); Alkaline Phosphatase 42 U/L (45-117); Anion Gap 6 (5-15); BUN 21 mg/dL (7-18); BUN/Creat Ratio 17.6 RATIO (10-20); Calcium,Total 8.8 mg/dL (8.5-10.1); Chloride 105 mmol/L (98-107); Cholesterol 138 mg/dL (200); Creatinine, Serum 1.19 mg/dL (0.70-1.30); EST Glomerular Filtration Rate 63 mL/min (>60); Est Glom Filt Rate - Afr Amer 76 mL/min (>60); Globulin 3.4 g/dL (2.2-4.2); Glucose 98 mg/dL (74-106); High Density Lipoprotein 39 mg/dL; Potassium 4.5 mmol/L (3.5-5.1); Protein, Total 7.1 g/dL (6.4-8.2); Sodium Level 135 mmol/L (136-145); Triglycerides 204 mg/dL; Very Low Density Lipoprotein 41 mg/dL (5-40)
[2021-12-03 15:59] LABS: Vitamin D,25 Hydroxy 42.3 ng/mL
[2021-12-03 16:08] LABS: Hemoglobin A1c 6.1 % (3.8-5.6)
== END 2021-12-03 23:59 | disposition home or self-care (01) ==
LOC: MTLAB 12:57
PROVIDERS: PCP Family Medicine; Referring Provider Family Medicine; Visit Provider Family Medicine
DX: E11.69 Type 2 diabetes mellitus with other specified complication (principal); E55.9 Vitamin D deficiency, unspecified
CPT/HCPCS: 36415; 80053; 80061; 82306; 83036; 85025

== ENCOUNTER 2022-03-16 07:37 | Observation (INO) | payer MEDICARE, OTHER, SELFPAY ==
[2022-03-16] VITALS (10 sets, daily range): BP systolic 102–136; BP diastolic 61–90; PULSE 61–83; RESP 16–18; TEMP 35.9–36.8; O2SAT 94–97; BMI 24.5; BMI 23.5
--- NOTE | 2022-03-16 07:42 | RAD_ITS ---
STUDY: X-RAY CHEST REASON FOR EXAM: Male, 77 years old. Syncope TECHNIQUE: Single AP portable view of the chest. COMPARISON: Comparison is made with prior study of 02/24/2018. FINDINGS: EKG electrodes are seen. The lungs are clear and expanded. There is no demonstrated pleural abnormality. Sternal cerclage wires and vascular clips are present from a prior sternotomy and coronary artery bypass graft procedure (CABG). A left-sided dual-chamber pacemaker seen. Normal mediastinum and daryl. Normal visualized pulmonary arteries. There is atherosclerotic calcification of the aortic arch with tortuosity. Normal visualized thoracic spine. Normal visualized ribs, clavicles, and shoulders. There is no demonstrated abnormality of the visualized soft tissue structures of the upper abdomen. RAD/Chest 1 View (Portable) IMPRESSION: No acute abnormality is seen. Electronically Signed: Jefferson Davison MD at 8:36 EDT ,
--- NOTE | 2022-03-16 07:43 | EKG12_ITS ---
Test Reason : SYNCOPE Blood Pressure : / mmHG Vent. Rate : 060 BPM Atrial Rate : 060 BPM P-R Int : 246 ms QRS Dur : 086 ms QT Int : 426 ms P-R-T Axes : 000 005 052 degrees QTc Int : 426 ms Atrial-paced rhythm with prolonged AV conduction Low voltage QRS Abnormal ECG Confirmed by INGRID RUIZ, ANTONIO ([id number]), editor & co founder LUKAS WINSTON ([id number]) on 03/18/2022 9:48:08 AM Referred By: ATTILA Confirmed By:ANTONIO QUINTERO MD
--- NOTE | 2022-03-16 07:46 | EX.ED.DYSGE1 ---
HPI History of Present Illness Chief Complaint: Syncope Informant: patient and EMS Onset/Context/Timing Onset: Today Narrative Narrative: Patient presents via EMS after syncopal episode at work. Patient states he was sitting at his workstation and the next thing he knows people were standing around him yelling his name. EMS reports they were told he had a syncopal episode that lasted approximately 5 minutes. Initial vital signs on their arrival included a systolic blood pressure in the mid 60s and a heart rate of 44 off the finger pulse ox reading. Patient states he did not quite feel right this morning but he did not feel ill. He denies chest pain or palpitations. He does have an ICD. He states it is interrogated not too long ago and told he had 2-1/2 years of battery life. [facility] Medical History (Updated 03/16/22 @ 08:[address] Carey Menard MD) Atherosclerotic heart disease of [place] coronary artery without angina pectoris Benign essential hypertension Chronic systolic (congestive) heart failure CKD (chronic kidney disease) Dehydration Diarrhea Difficulty balancing Essential hypertension History of ID (myocardial infarction) Hypotension Ischemic cardiomyopathy Mixed hyperlipidemia Multiple thyroid nodules Neck pain Non-rheumatic mitral regurgitation NSVT (nonsustained ventricular tachycardia) Premature ventricular contraction SOB (shortness of breath) Home Medications clopidogrel 75 mg tablet 75 mg PO DAILY 01/07/18 [History Last Taken Unknown] geriatric [id number] 1 tab PO DAILY 01/07/18 [History Last Taken 02/24/18] spironolactone 25 mg tablet 25 mg PO QAM 01/07/18 [History Last Taken 02/24/18 11:00] aspirin 81 mg tablet,delayed release 81 mg PO DAILY 02/21/18 [History Last Taken 02/22/18] carvedilol 12.5 mg tablet 12.5 mg PO BID 06/18/20 [History Last Taken Unknown] losartan 50 mg tablet 50 mg PO DAILY tab 06/18/20 [History Last Taken Unknown] magnesium 250 mg tablet 250 mg PO DAILY 06/18/20 [History Last Taken Unknown] nitroglycerin 0.4 mg sublingual tablet 0.4 mg SUBLINGUAL Q5-15M PRN 06/18/20 [History Last Taken Unknown] rosuvastatin 40 mg tablet 40 mg PO QHS tab 06/18/20 [History Last Taken Unknown] cholecalciferol (vitamin D3) 50 mcg (2,000 unit) tablet 50 mcg PO DAILY 12/22/21 [History Last Taken Unknown] Allergy/AdvReac Type Severity Reaction Status Date / Time KERI Inhibitors Allergy Unknown Unknown Verified 12/22/21 15:33 diclofenac [From Voltaren] Allergy Unknown Verified 12/22/21 15:33 Family History Brother Colon cancer Father COPD (chronic obstructive pulmonary disease) Mother CHF (congestive heart failure) Surgical History Encounter for insertion of cardiac resynchronization therapy pacemaker (COMMISSARY AGENT-P) History of aortic valve replacement with bioprosthetic valve (~11/28/09) History of coronary artery bypass surgery (~11/28/09) History of detached retina repair History of heart artery stent History of knee replacement history of thyroid goiter removal History of tonsillectomy Presence of implantable cardioverter-defibrillator (ICD) (~01/27/12) S/P thyroid biopsy (~02/2018) Social History Smoking Status: Never smoker alcohol intake: never substance use type: does not use caffeine: Yes Type: coffee Number of servings: 1 ROS ROS ED Constitutional Constitutional ED: Denies chills or fever(s) Eyes Eyes: Denies change in vision ENT ENT ED: Denies sore throat Cardiovascular Cardiovascular: Denies chest pain Respiratory/Chest Respiratory/Chest: Denies cough or dyspnea Gastrointestinal Gastrointestinal: Denies abdominal pain, nausea or vomiting Genitourinary Genitourinary ED: Denies dysuria Musculoskeletal Musculoskeletal: Denies back pain or neck pain Integumentary Denies rash Neurologic Neurologic: Denies headache(s) or weakness Allergic/Immunologic Allergic/Immunologic ED: Denies urticaria EXAM Physical Exam Const Vital Signs: 03/16/22 07:38 03/16/22 08:00 03/16/22 08:13 Temperature 97.2 F L Temperature Source Temporal Pulse Rate 61 63 Respiratory Rate 18 18 Respiratory Effort Normal Non-Labored Respiratory Pattern Normal Blood Pressure 102/90 H 108/73 Blood Pressure Mean 94 84 Pulse Ox 97 97 Oxygen Delivery Method Room Air Room Air Positive well nourished and well developed General Appearance ED: well developed HEENT Reports moist mucous membranes Eyes PERRL and EOMs intact bilaterally Neck supple Chest Wall inspection of chest normal and palpation of chest normal Resp normal respiratory effort and clear to auscultation bilaterally Cardio regular rate and regular rhythm GI normal to inspection, nondistended, normoactive bowel sounds and non-tender Palpation: soft Extremity normal to inspection Neuro oriented x3 and no sensory deficits noted Sensorium / Orientation: alert Motor Exam: strength 5/5 throughout Psych mental status grossly normal Skin no rashes or lesions noted MDM MDM MDM Narrative Medical decision making narrative: Patient placed on cardiac monitor technician. IV fluids given. Lab work, EKG, chest x-ray obtained. Pacemaker interrogated. Lab Data Attestation: I reviewed the patient's lab results. Labs: Laboratory Results - last 24 hr 03/16/22 03/16/22 07:00 07:00 WBC 10.0 RBC 3.95 L Hgb 14.5 Hct 40.6 MCV 102.8 H MCH 36.7 H MCHC 35.7 RDW Std Deviation 49.2 H RDW Coeff of Etienne 12.9 Plt Count 147 L MPV 10.2 Immature Gran % (Auto) 0.500 Neut % (Auto) 71.2 H Lymph % (Auto) 15.2 L [place] % (Auto) 11.6 H Eos % (Auto) 1.2 Baso % (Auto) 0.3 Absolute Neuts (auto) 7.2 Absolute Lymphs (auto) 1.52 Nucleated RBC % 0 Sodium 130 L Potassium 4.7 Chloride 99 Carbon Dioxide 23.0 Anion Gap 8 BUN 14 Creatinine 1.34 H Estim Creat Clear Calc 44.70 Est GFR (MDRD) Af Amer 66 Est GFR (MDRD) Non-Af 55 L BUN/Creatinine Ratio 10.4 Glucose 129 H Calcium 9.7 Troponin I High Sens 12 Radiography Chest X-Ray - ED: 1 View, Read by ED Physician and Chronic Changes EKG Initial EKG: Attestation: I personally reviewed and interpreted this EKG as follows: Comments: Paced at [address] change. Treatment and Re-Evaluation Narrative: On repeat evaluation patient resting comfortably. Systolic blood pressure is in the 100-110 range. Pacemaker interrogation appears to show 2 episodes of nonsustained V. tach since last reset, 1 on January 10 of this year and one on February 11 of this year. I do not see any events listed from this morning. Lab work is unremarkable other than a sodium low at 130. Creatinine is slightly elevated over baseline at 1.34. Chest x-ray per my interpretation reveals pacemaker to be in good position. Chronic changes noted to the lungs. Patient we discussed with hospitalist for observation. Discharge Plan Triage Chief Complaint: Syncope ED Provider: Carey Menard Dx/Rx/DC Orders Clinical Impression: Syncope, Hyponatremia Prescriptions: No Action clopidogrel 75 mg tablet 75 mg PO DAILY RF: 0 spironolactone 25 mg tablet 25 mg PO QAM RF: 0 geriatric multivit with iron and minerals tablet tablet 1 tab PO DAILY RF: 0 aspirin [Adult Low Dose Aspirin] 81 mg tablet,delayed release (DR/EC) 81 mg PO DAILY RF: 0 losartan 50 mg tablet 50 mg PO DAILY RF: 0 magnesium 250 mg tablet 250 mg PO DAILY RF: 0 carvedilol 12.5 mg tablet 12.5 mg PO BID RF: 0 nitroglycerin 0.4 mg tablet, sublingual 0.4 mg SUBLINGUAL Q5-15M PRN (Reason: Chest Pain) RF: 0 rosuvastatin 40 mg tablet 40 mg PO QHS RF: 0 cholecalciferol (vitamin D3) 50 mcg (2,000 unit) tablet 50 mcg PO DAILY RF: 0 Primary Care Provider: Jonathon Bryant Referrals: Jonathon Bryant MD [Primary Care Provider] - Disposition Disposition: Acute Care Hospital [facility]
[2022-03-16] MEDS: 0.9% Normal Saline 1,000 ML 150 ML IV ×3 (07:59→15:44)
[2022-03-16 08:00] LABS: Absolute Lymphocyte Count 1.52 X10^3/uL (0.83-4.51); Absolute Neutrophil Count 7.2 X10^3/uL (2.0-7.7); Basophil# 0.03 X10^3/uL; Basophil% 0.3 % (0-1); Eosinophil# 0.12 X10^3/uL; Eosinophils% 1.2 % (0-5); Hematocrit 40.6 % (40-54); Hemoglobin 14.5 g/dL (13.0-16.5); Lymphocyte # 1.52 X10^3/ul (0.83-4.51); Lymphocyte % 15.2 % (19-41); Mean Corp Hgb Conc 35.7 g/dL (32-36); Mean Corpuscular Hgb 36.7 pg (27.0-32.0); Mean Corpuscular Volume 102.8 fL (80-94); Mean Platelet Vol. 10.2 fl (6.2-12.0); Monocyte# 1.16 X10^3/uL; Monocyte% 11.6 % (0-10); NRBC Flagged by Analyzer 0 % (0-5); Neutrophil # 7.15 X10^3/uL (2.7-7.7); Neutrophil % 71.2 % (47-70); Platelet Count 147 K/mm3 (150-450); RBC Distribution Width CV 12.9 % (11.6-14.6); RBC Distribution Width SD 49.2 fl (35.1-43.9); Red Blood Count 3.95 M/mm3 (4.6-6.2)
[2022-03-16 08:17] LABS: Anion Gap 8 (5-15); BUN 14 mg/dL (7-18); BUN/Creat Ratio 10.4 RATIO (10-20); Calcium,Total 9.7 mg/dL (8.5-10.1); Chloride 99 mmol/L (98-107); Creatinine, Serum 1.34 mg/dL (0.70-1.30); EST Glomerular Filtration Rate 55 mL/min (>60); Est Glom Filt Rate - Afr Amer 66 mL/min (>60); Glucose 129 mg/dL (74-106); Potassium 4.7 mmol/L (3.5-5.1); Sodium Level 130 mmol/L (136-145); Troponin-I HS (w/2H Reflex) 12 pg/mL (3.0-78.0)
--- NOTE | 2022-03-16 08:37 | HP.PCM.HOS_ITS ---
HPI - General General Date of Admission: 03/16/22 Date of Service: 03/16/22 Chief Complaint: Passed out HPI Narrative SOHAN LONDON, is a 77 M with past medical history significant for coronary artery disease status post CABG, history of aortic valve replacement with bioprosthetic valve, history of ischemic cardiomyopathy status post AIC D/pacemaker placement who was brought to the emergency department after passing out. Per patient he woke up on the morning of his presentation in his usual state of health. He went to work and while sitting he blacked out. Patient denied any falling. Patient was found to be hypotensive at the time he was attended to with systolic blood pressure in the 60s. There was a question of patient being bradycardic with heart rates in the 40s. Was transferred to the emergency department found to have slightly impaired kidney function IV fluid resuscitation initiated admitted to monitored bed for further management [facility] Medical History Atherosclerotic heart disease of [place] coronary artery without angina pectoris Benign essential hypertension Chronic systolic (congestive) heart failure CKD (chronic kidney disease) Dehydration Diarrhea Difficulty balancing Essential hypertension History of NC (myocardial infarction) Hypotension Ischemic cardiomyopathy Mixed hyperlipidemia Multiple thyroid nodules Neck pain Non-rheumatic mitral regurgitation NSVT (nonsustained ventricular tachycardia) Premature ventricular contraction SOB (shortness of breath) Home Medications clopidogrel 75 mg tablet 75 mg PO DAILY 01/07/18 [History Last Taken Unknown] geriatric [id number]-[id number]-izbd 1 tab PO DAILY 01/07/18 [History Last Taken 02/24/18] spironolactone 25 mg tablet 25 mg PO QAM 01/07/18 [History Last Taken 02/24/18 11:00] aspirin 81 mg tablet,delayed release 81 mg PO DAILY 02/21/18 [History Last Taken 02/22/18] carvedilol 12.5 mg tablet 12.5 mg PO BID 06/18/20 [History Last Taken Unknown] losartan 50 mg tablet 50 mg PO DAILY tab 06/18/20 [History Last Taken Unknown] magnesium 250 mg tablet 250 mg PO DAILY 06/18/20 [History Last Taken Unknown] nitroglycerin 0.4 mg sublingual tablet 0.4 mg SUBLINGUAL Q5-15M PRN 06/18/20 [History Last Taken Unknown] rosuvastatin 40 mg tablet 40 mg PO QHS tab 06/18/20 [History Last Taken Unknown] cholecalciferol (vitamin D3) 50 mcg (2,000 unit) tablet 50 mcg PO DAILY 12/22/21 [History Last Taken Unknown] Allergy/AdvReac Type Severity Reaction Status Date / Time KERI Inhibitors Allergy Unknown Unknown Verified 12/22/21 15:33 diclofenac [From Voltaren] Allergy Unknown Verified 12/22/21 15:33 Family History Brother Colon cancer Father COPD (chronic obstructive pulmonary disease) Mother CHF (congestive heart failure) Surgical History Encounter for insertion of cardiac resynchronization therapy pacemaker (RAT EXTERMINATOR-P) History of aortic valve replacement with bioprosthetic valve (~11/28/09) History of coronary artery bypass surgery (~11/28/09) History of detached retina repair History of heart artery stent History of knee replacement history of thyroid goiter removal History of tonsillectomy Presence of implantable cardioverter-defibrillator (ICD) (~01/27/12) S/P thyroid biopsy (~02/2018) Social History Smoking Status: Never smoker alcohol intake: never substance use type: does not use caffeine: Yes Type: coffee Number of servings: 1 ROS ROS Narrative GENERAL: denies fever, chills, night sweats, weight loss, anorexia HEENT: denies headache, sinus congestion, or drainage, dysphagia RESPIRATORY: denies cough, sputum production, shortness of breath, dyspnea on exertion CARDIAC: denies chest pain, palpitations, orthopnea, PND GASTROINTESTINAL: denies abdominal pain, nausea, vomiting, melena, GENITOURINARY: denies dysuria, urgency, frequency, heamaturia EXTREMITY: denies swelling MUSCULOSKELETAL: denies current joint pain or tenderness NEUROLOGIC: denies focal numbness, weakness, tingling HEMATOLOGIC: denies easy bruising and/or hemorrhage INTEGUMENT: denies rashes PSYCHIATRIC: denies suicidal or homicidal ideation Vital Signs Vital Signs Vital Signs: 03/16/22 07:38 03/16/22 08:00 03/16/22 08:13 Temperature 97.2 F L Temperature Source Temporal Pulse Rate 61 63 Respiratory Rate 18 18 Respiratory Effort Normal Non-Labored Respiratory Pattern Normal Blood Pressure 102/90 H 108/73 Blood Pressure Mean 94 84 Pulse Ox 97 97 Oxygen Delivery Method Room Air Room Air Weight Weight: 75.4 kg Body Mass Index (BMI) 24.5 Physical Exam Narrative GENERAL: cooperative HEENT: Atraumatic; EYES; Anicteric, Normal Conjunctiva NECK; supple, normal thyroid, RESPIRATORY: Diminished to auscultation CARDIOVASCULAR: Regular S1 S2, GI: soft, normoactive bowel sounds, : No Renal angle tenderness; EXTREMITIES: No edema, no clubbing, MUSCULOSKELETAL: no muscle wasting NEURO: Awake; no lateralizing signs. SKIN: No Rash PSYCH; Flat affect Results Lab / Micro Data Result Diagrams: 03/16/22 07:00 03/16/22 07:00 Labs: Laboratory Results - last 24 hr 03/16/22 07:00: WBC 10.0, RBC 3.95 L, Hgb 14.5, Hct 40.6, MCV 102.8 H, MCH 36.7 H, MCHC 35.7, RDW Std Deviation 49.2 H, RDW Coeff of Etienne 12.9, Plt Count 147 L, MPV 10.2, Immature Gran % (Auto) 0.500, Neut % (Auto) 71.2 H, Lymph % (Auto) 15.2 L, [place] % (Auto) 11.6 H, Eos % (Auto) 1.2, Baso % (Auto) 0.3, Absolute Neuts (auto) 7.2, Absolute Lymphs (auto) 1.52, Nucleated RBC % 0 03/16/22 07:00: Sodium 130 L, Potassium 4.7, Chloride 99, Carbon Dioxide 23.0, Anion Gap 8, BUN 14, Creatinine 1.34 H, Estim Creat Clear Calc 44.70, Est GFR (MDRD) Af Amer 66, Est GFR (MDRD) Non-Af 55 L, BUN/Creatinine Ratio 10.4, Glucose 129 H, Calcium 9.7, Troponin I High Sens 12 Assessment & Plan Assessment/Plan (1) Syncope: (2) Hyponatremia: PLAN: Patient is a 77-year-old gentleman admitted with a syncopal episode ? 1. Syncopal episode ? Do suspect orthostatic hypotension patient was hypotensive at the time of his initial assessment in the ED. Has been admitted to a monitored bed for con tinuous telemetry monitoring. Patient was also started on IV fluid ordered serial cardiac enzymes given his significant past cardiac history. 2D echo ordered 2. Hyponatremia ? Do suspect hypovolemic hyponatremia patient is on IV fluids with subsequent monitoring of electrolyte 3. Acute kidney injury ? Patient creatinine baseline 1.1 Was 1.34 on admission started on IV fluid with subsequent monitoring of electrolyte 4. Coronary artery disease ? Status post CABG with subsequent PCI 5. Ischemic cardiomyopathy -status post ICD placement dual-chamber 6. Valvular heart disease ? With history of aortic valve repair with bioprosthetic material 6. History of thyroidectomy ? As a result of multiple thyroid nodules 7. Essential hypertension ? Patient antihypertensives on hold in view of his presentation 8. Dyslipidemia -Patient is on statin therapy, continued at home dose 9. DVT prophylaxis ? [place] Lovenox Advance planning; did discuss with the patient and family (patient's daughter) regarding advanced directives as well as CODE STATUS. Did explain the various scenarios involved ( FULL CODE, DNR CCA, DNR CCA with no intubation, and DNR CC and what each meant) patient elected to remain full code with CPR and intubation if needed. Order was placed. Time spent on discussion 18 minutes. Charges/Coding Visit Charges OBSV E&M: 54945 Initial observation care L3 Procedures Hospitalists Procedures: 83945 Advncd Care Plan 30 Min
--- NOTE | 2022-03-16 09:33 | ECHOCS_ITS ---
Version 2 Reason For Study: Syncope/Near Syncope Procedure This was a 2D Doppler, Color Flow transthoracic echocardiogram. Contrast injection was performed. Exam performed portable in patient room. Left Ventricle Normal LV size. Left ventricular systolic function is normal. The estimated ejection fraction is 60 %. Stage 1 diastolic dysfunction. No regional wall motion abnormalities noted. Right Ventricle Normal RV size. ICD or pacer leads identified within the right ventricle. Normal systolic function. Atria The left atrium is mildly enlarged. Normal right atrium. Mitral Valve [place] diffuse mitral valve thickening. Mild (1+) eccentric mitral valve insufficiency. Tricuspid Valve Normal tricuspid valve. Mild to moderate (1-2+) tricuspid valve insufficiency. Pulmonary artery systolic pressure is 46 mmHg. Aortic Valve Bioprosthetic aortic valve. Pulmonic Valve Normal pulmonic valve. Mild (1+) pulmonic valve insufficiency. Great Vessels Normal aortic root. The pulmonary artery is normal size. Normal inferior vena cava. Pericardium/Pleural No pericardial effusion. Medication Diluted definity 3ml given slow IV push to enhance endocardial definition. MMode/2D Measurements & Calculations LVIDd: 4.9 cm IVSd: 1.0 cm Ao root diam: 3.4 cm LVIDs: 3.5 cm LVPWd: 1.00 cm RVDd: 4.7 cm FS: 27.5 % LAV(MOD-bp): 78.0 ml LVAd ap4: 36.6 cm2 SV(MOD-sp4): 63.9 ml LAV(MOD-bp) Indexed: 40.9 ml/m2 LVLd ap4: 8.5 cm LAV(MOD-sp2): 69.4 ml EDV(MOD-sp4): 123.7 ml LAV(MOD-sp4): 87.0 ml EDV(sp4-el): 133.8 ml LVAs ap4: 23.0 cm2 LVLs ap4: 7.2 cm ESV(MOD-sp4): 59.8 ml ESV(sp4-el): 62.2 ml EF(MOD-sp4): 51.7 % EF(sp4-el): 53.5 % SV(sp4-el): 71.6 ml LA A4 area: 24.8 cm2 LA dimension(2D): 5.0 cm RA A4 area: 15.9 cm2 Doppler Measurements & Calculations MV E max tristan: 71.3 cm/sec Lat Peak E' Tristan: 8.5 cm/sec Med Peak E' Tristan: 3.6 cm/sec MV A max tristan: 87.6 cm/sec E/E' lat: 8.4 E/E' med: 19.6 MV E/A: 0.81 Ao V2 max: 137.4 cm/sec LV V1 max: 112.0 cm/sec PA V2 max: 84.7 cm/sec Ao max P.6 mmHg LV V1 max P.0 mmHg Ao V2 mean: 86.0 cm/sec LV V1 mean P.5 mmHg Ao mean P.5 mmHg LV V1 mean: 73.1 cm/sec Ao V2 VTI: 24.5 cm LV V1 VTI: 21.0 cm PI end-d tristan: 147.3 cm/sec TR max tristan: 327.3 cm/sec TR max P.9 mmHg ECHO/Echo Complete W/ Contrast Interpretation Summary Normal LV size. Left ventricular systolic function is normal. The estimated ejection fraction is 60 %. Stage 1 diastolic dysfunction. Pulmonary artery systolic pressure is 46 mmHg. Bioprosthetic aortic valve. Contrast injection was performed. Compared to previous study, the left ventricu lar systolic function has improved.. Ordering Physician: Casper Whitten Referring Physician: Jonathon Bryant Performed By: Codie Lagunas RDCS, RVT
[2022-03-16 09:53] LABS: Reflex Troponin-HS? (from REC) Y
[2022-03-16] MEDS: Magnesium Chloride 64 MG Delay Rel.Tablet 128 MG PO (09:59)
[2022-03-16 10:33] LABS: Troponin-I HS 9 pg/mL (3.0-78.0)
[2022-03-16 14:18] LABS: Troponin-I HS 10 pg/mL (3.0-78.0)
[2022-03-16 14:55] LABS: Magnesium 1.7 mg/dL (1.6-2.6)
--- NOTE | 2022-03-16 15:07 | CHAPLAIN ---
Type of Pastoral Visit _x__ Initial Visit ___ Follow-up Visit ___ On-call Visit ___ General Patient Visit ___ Spiritual Assessment ___ Family Conference ___ Bereavement ___ Rapid Response ___ Code Blue ___ Other (describe below) Pastoral Care Referral From _x__ Patient ___ Family ___ Nurse ___ Physician ___ Manufacturing Controls Engineer ___ Tray Service Worker ___ Other (describe below) Sacrament/Intervention _x__ Active listening ___ Anointing ___ Latter Day ___ Bereavement ___ Communion _x__ Carla exploration ___ _x__ Life review _x__ Prayer ___ Reconciliation ___ Sacrament of Sick _x__ Supportive presence ___ Wedding ___ Other (describe below) Pastoral Comments patient remembers this gauger chief delivery from when he or his spouse were in the hospital; daughter is with pt; pt gives information on what happened today for reason of coming here; pt also speaks of his seperation recently from [employer] and the need to get into it because I should; prayer and presence welcomed;
[2022-03-16] MEDS: 0.9% Saline Lock 10 ML Syringe IV (21:12)
[2022-03-16] MEDS: Atorvastatin Calcium 80 MG Tablet PO (21:12)
[2022-03-17 03:00] VITALS: PULSE 73
[2022-03-17 03:38] VITALS: BP 125/81; PULSE 66; RESP 16; TEMP 36.7; O2SAT 94
[2022-03-17 06:11] LABS: Absolute Lymphocyte Count 1.66 X10^3/uL (0.83-4.51); Absolute Neutrophil Count 4.3 X10^3/uL (2.0-7.7); Basophil# 0.03 X10^3/uL; Basophil% 0.4 % (0-1); Eosinophil# 0.17 X10^3/uL; Eosinophils% 2.4 % (0-5); Hematocrit 36.2 % (40-54); Hemoglobin 12.8 g/dL (13.0-16.5); Lymphocyte # 1.66 X10^3/ul (0.83-4.51); Lymphocyte % 23.2 % (19-41); Mean Corp Hgb Conc 35.4 g/dL (32-36); Mean Corpuscular Hgb 36.2 pg (27.0-32.0); Mean Corpuscular Volume 102.3 fL (80-94); Mean Platelet Vol. 9.7 fl (6.2-12.0); Monocyte# 0.94 X10^3/uL; Monocyte% 13.1 % (0-10); NRBC Flagged by Analyzer 0 % (0-5); Neutrophil # 4.32 X10^3/uL (2.7-7.7); Neutrophil % 60.5 % (47-70); Platelet Count 111 K/mm3 (150-450); RBC Distribution Width SD 48.8 fl (35.1-43.9); Red Blood Count 3.54 M/mm3 (4.6-6.2); White Blood Count 7.2 K/mm3 (4.4-11.0)
[2022-03-17 06:42] LABS: Anion Gap 7 (5-15); BUN 9 mg/dL (7-18); Calcium,Total 8.6 mg/dL (8.5-10.1); Chloride 102 mmol/L (98-107); EST Glomerular Filtration Rate 77 mL/min (>60); Est Glom Filt Rate - Afr Amer 93 mL/min (>60); Glucose 101 mg/dL (74-106); Magnesium 1.6 mg/dL (1.6-2.6); Potassium 4.2 mmol/L (3.5-5.1); Sodium Level 133 mmol/L (136-145); Thyroid Stim Hormone (TSH) 1.29 uIU/mL (0.358-3.74)
--- NOTE | 2022-03-17 07:17 | PCM.PN.HOSP ---
Subjective Subjective . Patient had runs of nonsustained VT. Pacer interrogation has therefore been ordered. Echo demonstrated EF of 60% Objective Data Objective Data Vital Signs: Vital Signs Temp Pulse Resp BP Pulse Ox 98.0 F 66 16 125/81 H 94 03/17/22 03:38 03/17/22 03:38 03/17/22 03:38 03/17/22 03:38 03/17/22 03:38 Oxygen Delivery Method Room Air Weight: 72.2 kg Body Mass Index (BMI) 23.5 Intake & Output: Intake and Output for Last 24 Hours 03/15/22 03/16/22 03/17/22 23:59 23:59 23:59 Intake Total 2702.5 / 2702.5 480 / 480 Balance 2702.5 / 2702.5 480 / 480 Lab / Micro Data Result Diagrams: 03/17/22 05:55 03/17/22 05:55 Labs: Laboratory Results - last 24 hr 03/16/22 07:00: WBC 10.0, RBC 3.95 L, Hgb 14.5, Hct 40.6, MCV 102.8 H, MCH 36.7 H, MCHC 35.7, RDW Std Deviation 49.2 H, RDW Coeff of Etienne 12.9, Plt Count 147 L, MPV 10.2, Immature Gran % (Auto) 0.500, Neut % (Auto) 71.2 H, Lymph % (Auto) 15.2 L, [place] % (Auto) 11.6 H, Eos % (Auto) 1.2, Baso % (Auto) 0.3, Absolute Neuts (auto) 7.2, Absolute Lymphs (auto) 1.52, Nucleated RBC % 0 03/16/22 07:00: Sodium 130 L, Potassium 4.7, Chloride 99, Carbon Dioxide 23.0, Anion Gap 8, BUN 14, Creatinine 1.34 H, Estim Creat Clear Calc 44.70, Est GFR (MDRD) Af Amer 66, Est GFR (MDRD) Non-Af 55 L, BUN/Creatinine Ratio 10.4, Glucose 129 H, Calcium 9.7, Troponin I High Sens 12 03/16/22 10:05: Troponin I High Sens 9 03/16/22 10:05: Magnesium 1.7 03/16/22 13:13: Troponin I High Sens 10 03/17/22 05:55: WBC 7.2, RBC 3.54 L, Hgb 12.8 L, Hct 36.2 L, MCV 102.3 H, MCH 36.2 H, MCHC 35.4, RDW Std Deviation 48.8 H, RDW Coeff of Etienne 13.0, Plt Count 111 L, MPV 9.7, Immature Gran % (Auto) 0.400, Neut % (Auto) 60.5, Lymph % (Auto) 23.2, [place] % (Auto) 13.1 H, Eos % (Auto) 2.4, Baso % (Auto) 0.4, Absolute Neuts (auto) 4.3, Absolute Lymphs (auto) 1.66, Nucleated RBC % 0 03/17/22 05:55: Sodium 133 L, Potassium 4.2, Chloride 102, Carbon Dioxide 24.0, Anion Gap 7, BUN 9, Creatinine 1.00, Estim Creat Clear Calc 59.90, Est GFR (MDRD) Af Amer 93, Est GFR (MDRD) Non-Af 77, BUN/Creatinine Ratio 9.0 L, Glucose 101, Calcium 8.6, Magnesium 1.6, TSH 1.29 Radiography Diagnostic Testing: Radiology Impression Chest X-Ray 03/16/22 07:42 IMPRESSION: No acute abnormality is seen. Electronically Signed: Jefferson Davison MD at 8:36 EDT , Echocardiogram 03/16/22 09:33 Interpretation Summary Normal LV size. Left ventricular systolic function is normal. The estimated ejection fraction is 60 %. Stage 1 diastolic dysfunction. Pulmonary artery systolic pressure is 46 mmHg. Bioprosthetic aortic valve. Contrast injection was performed. Compared to previous study, the left ventricular systolic function has improved.. Ordering Physician: Casper Whitten Referring Physician: Jonathon Bryant Performed By: Codie Lagunas RDCS, RVT Physical Exam Narrative GENERAL: cooperative HEENT: Atraumatic; EYES; Anicteric, Normal Conjunctiva NECK; supple, normal thyroid, RESPIRATORY: Diminished to auscultation CARDIOVASCULAR: Regular S1 S2, GI: soft, normoactive bowel sounds, : No Renal angle tenderness; EXTREMITIES: No edema, no clubbing, MUSCULOSKELETAL: no muscle wasting NEURO: Awake; no lateralizing signs. SKIN: No Rash PSYCH; Flat affect Assessment & Plan Assessment/Plan (1) Syncope: (2) Hyponatremia: PLAN: Patient is a 77-year-old gentleman admitted with a syncopal episode ? 1. Syncopal episode ? Do suspect orthostatic hypotension patient was hypotensive at the time of his initial assessment in the ED. Has been admitted to a monitored bed for continuous telemetry monitoring. Patient was also started on IV fluid ordered serial cardiac enzymes given his significant past cardiac history. 2D echo ordered -03/15/2022 Patient had runs of nonsustained VT. Pacer interrogation has therefore been ordered. Echo demonstrated EF of 60% 2. Hyponatremia ? Do suspect hypovolemic hyponatremia patient is on IV fluids with subsequent monitoring of electrolyte ? 03/15/2022: Sodium up to 133 3. Acute kidney injury ? Patient creatinine baseline 1.1 Was 1.34 on admission started on IV fluid with subsequent monitoring of electrolyte ? 03/15/2022 creatinine down to 1.0 4. Coronary artery disease ? Status post CABG with subsequent PCI 5. Ischemic cardiomyopathy -status post ICD placement dual-chamber 6. Valvular heart disease ? With history of aortic valve repair with bioprosthetic material 6. History of thyroidectomy ? As a result of multiple thyroid nodules 7. Essential hypertension ? Patient antihypertensives on hold in view of his presentation 8. Dyslipidemia -Patient is on statin therapy, continued at home dose 9. DVT prophylaxis ? [place] Lovenox Advance planning; did discuss with the patient and family (patient's daughter) regarding advanced directives as well as CODE STATUS. Did explain the various scenarios involved ( FULL CODE, DNR CCA, DNR CCA with no intubation, and DNR CC and what each meant) patient elected to remain full code with CPR and intubation if needed. Order was placed. Time spent on discussion 18 minutes. Charges/Coding Visit Charges OBSV E&M: 53244 Subsequent observation care L2
[2022-03-17 09:00] VITALS: PULSE 68
[2022-03-17] MEDS: Multivitamins,Ther W-Minerals Tablet 1 TABLET PO (09:05)
[2022-03-17] MEDS: Aspirin E.C. 81 MG Tablet PO (09:05)
[2022-03-17] MEDS: Magnesium Chloride 64 MG Delay Rel.Tablet 128 MG PO (09:05)
[2022-03-17] MEDS: Cholecalciferol (VIT D3) 25 MCG TABLET (1,000 UNITS) 50 MCG PO (09:06)
[2022-03-17] MEDS: Clopidogrel Bisulfate 75 MG Tablet PO (09:06)
[2022-03-17 09:12] VITALS: BP 111/73; PULSE 76; RESP 16; TEMP 36.5; O2SAT 94
--- NOTE | 2022-03-17 10:31 | CASEMGMT ---
This RN FRANCES to room with WATTS form, explanation done-pt voices understanding, and signs WATTS form. Original to chart and copy to pt. Pt has copy of MCR IP vs OBS booklet. Pt voices no further questions/concerns/needs. [place]en [place] CM
--- NOTE | 2022-03-17 11:56 | PCM.DC.SUM ---
Providers Date of Admission: 03/16/22 Primary Care Physician: Dr. Jonathon Bryant MD Reason For Visit: syncope Diagnosis Discharge Diagnosis (1) Syncope: Status: Acute Code(s): R55 - Syncope and collapse (2) Hyponatremia: Status: Acute Code(s): E87.1 - Hypo-osmolality and hyponatremia Medications at Discharge Home Medications clopidogrel 75 mg tablet 75 mg PO DAILY 01/07/18 geriatric uzykxcni-rqhi-pfmc 1 tab PO DAILY 01/07/18 aspirin 81 mg tablet,delayed release 81 mg PO DAILY 02/21/18 magnesium 250 mg tablet 250 mg PO DAILY 06/18/20 nitroglycerin 0.4 mg sublingual tablet 0.4 mg SUBLINGUAL Q5-15M PRN 06/18/20 rosuvastatin 40 mg tablet 40 mg PO QHS tab 06/18/20 cholecalciferol (vitamin D3) 50 mcg (2,000 unit) tablet 50 mcg PO DAILY 12/22/21 carvedilol 3.125 mg PO BID #60 tab 03/17/22 Hospital Course Summary of Care Provided Minutes Spent on Discharge: 35 Hospital Course: Patient is a 77-year-old gentleman admitted with a syncopal episode ? 1. Syncopal episode ? Do suspect orthostatic hypotension patient was hypotensive at the time of his initial assessment in the ED. Has been admitted to a monitored bed for continuous telemetry monitoring. Patient was also started on IV fluid ordered serial cardiac enzymes given his significant past cardiac history. 2D echo ordered -03/15/2022 Patient had runs of nonsustained VT. Pacer interrogation has therefore been ordered. Echo demonstrated EF of 60% -Patient pacer interrogation came back unremarkable. Patient was discharged home with adjustment made to his medications. He was on Aldactone and losartan discontinued on discharge. He was on Coreg 12.5 mg p.o. twice daily this was decreased to 3.125 mg p.o. twice daily with prescription written. Plans with patient follow-up with cardiology within 2 to 3 weeks for subsequent adjustment of medications 2. Hyponatremia ? Do suspect hypovolemic hyponatremia patient is on IV fluids with subsequent monitoring of electrolyte ? 03/15/2022: Sodium up to 133 3. Acute kidney injury ? Patient creatinine baseline 1.1 Was 1.34 on admission started on IV fluid with subsequent monitoring of electrolyte ? 03/15/2022 creatinine down to 1.0 4. Coronary artery disease ? Status post CABG with subsequent PCI 5. Ischemic cardiomyopathy -status post ICD placement dual-chamber 6. Valvular heart disease ? With history of aortic valve repair with bioprosthetic material 6. History of thyroidectomy ? As a result of multiple thyroid nodules 7. Essential hypertension ? Patient antihypertensives on hold in view of his presentation 8. Dyslipidemia -Patient is on statin therapy, continued at home dose 9. DVT prophylaxis ? TN Lovenox Physical Exam Narrative GENERAL: cooperative HEENT: Atraumatic; EYES; Anicteric, Normal Conjunctiva NECK; supple, normal thyroid, RESPIRATORY: Diminished to auscultation CARDIOVASCULAR: Regular S1 S2, GI: soft, normoactive bowel sounds, : No Renal angle tenderness; EXTREMITIES: No edema, no clubbing, MUSCULOSKELETAL: no muscle wasting NEURO: Awake; no lateralizing signs. SKIN: No Rash PSYCH; Flat affect Weight / BMI Weight Weight: 72.2 kg Body Mass Index (BMI) 23.5 ABG / Lab / Microbiology Data Result Diagrams: 03/17/22 05:55 03/17/22 05:55 Laboratory: Laboratory Results - last 24 hr 03/16/22 10:05: Magnesium 1.7 03/16/22 13:13: Troponin I High Sens 10 03/17/22 05:55: WBC 7.2, RBC 3.54 L, Hgb 12.8 L, Hct 36.2 L, MCV 102.3 H, MCH 36.2 H, MCHC 35.4, RDW Std Deviation 48.8 H, RDW Coeff of Etienne 13.0, Plt Count 111 L, MPV 9.7, Immature Gran % (Auto) 0.400, Neut % (Auto) 60.5, Lymph % (Auto) 23.2, [place] % (Auto) 13.1 H, Eos % (Auto) 2.4, Baso % (Auto) 0.4, Absolute Neuts (auto) 4.3, Absolute Lymphs (auto) 1.66, Nucleated RBC % 0 03/17/22 05:55: Sodium 133 L, Potassium 4.2, Chloride 102, Carbon Dioxide 24.0, Anion Gap 7, BUN 9, Creatinine 1.00, Estim Creat Clear Calc 59.90, Est GFR (MDRD) Af Amer 93, Est GFR (MDRD) Non-Af 77, BUN/Creatinine Ratio 9.0 L, Glucose 101, Calcium 8.6, Magnesium 1.6, TSH 1.29 Radiography Diagnostic Testing: Radiology Impression Echocardiogram 03/16/22 09:33 Interpretation Summary Normal LV size. Left ventricular systolic function is normal. The estimated ejection fraction is 60 %. Stage 1 diastolic dysfunction. Pulmonary artery systolic pressure is 46 mmHg. Bioprosthetic aortic valve. Contrast injection was performed. Compared to previous study, the left ventricular systolic function has improved.. Ordering Physician: Casper Whitten Referring Physician: Jonathon Bryant Performed By: Codie Lagunas RDCS, RVT Meaningful Use Info Meaningful Use Diagnoses (Choose all that apply): None applicable Discharge Plan Admission Admit Date/Time: 03/16/22 08:43 Attending Provider: Casper Whitten Primary Care Provider: Jonathon Bryant Discharge Orders/Prescriptions Prescriptions: New carvedilol 3.125 mg tablet 3.125 mg PO BID Qty: 60 RF: 0 Continued clopidogrel 75 mg tablet 75 mg PO DAILY RF: 0 geriatric multivit with iron and minerals tablet tablet 1 tab PO DAILY RF: 0 aspirin [Adult Low Dose Aspirin] 81 mg tablet,delayed release (DR/EC) 81 mg PO DAILY RF: 0 magnesium 250 mg tablet 250 mg PO DAILY RF: 0 nitroglycerin 0.4 mg tablet, sublingual 0.4 mg SUBLINGUAL Q5-15M PRN (Reason: Chest Pain) RF: 0 rosuvastatin 40 mg tablet 40 mg PO QHS RF: 0 cholecalciferol (vitamin D3) 50 mcg (2,000 unit) tablet 50 mcg PO DAILY RF: 0 Discontinued spironolactone 25 mg tablet 25 mg PO QAM RF: 0 losartan 50 mg tablet 50 mg PO QHS RF: 0 carvedilol 12.5 mg tablet 12.5 mg PO BID RF: 0 Referrals / Follow Up: Jonathon Bryant MD [Primary Care Provider] - In 1 Week Ulises Styles MD [STAFF PHYSICIAN] - Within 2 Weeks Disposition Disposition (needs filled in before D/C Order can be placed): Home, Self Care Charges/Coding Visit Charges OBSV E&M: 39584 Observation care discharge
== END 2022-03-17 11:57 | disposition home or self-care (01) ==
LOC: ED 08:26 → PCU 08:51
PROVIDERS: Admitting Provider Internal Medicine; Emergency Provider Emergency Medicine; PCP Family Medicine; Visit Provider Internal Medicine
DX: R55 Syncope and collapse (principal); I13.0 Hypertensive heart and chronic kidney disease with heart failure and stage 1 through stage 4 chronic kidney disease, or unspecified chronic kidney disease; I50.22 Chronic systolic (congestive) heart failure; I47.2 Ventricular tachycardia; N18.9 Chronic kidney disease, unspecified; I25.10 Atherosclerotic heart disease of native coronary artery without angina pectoris; I25.5 Ischemic cardiomyopathy; E04.2 Nontoxic multinodular goiter; Z79.02 Long term (current) use of antithrombotics/antiplatelets; Z95.1 Presence of aortocoronary bypass graft; I95.9 Hypotension, unspecified; E87.1 Hypo-osmolality and hyponatremia; E78.2 Mixed hyperlipidemia; Z79.899 Other long term (current) drug therapy; Z79.82 Long term (current) use of aspirin; R94.31 Abnormal electrocardiogram [ECG] [EKG]; Z95.3 Presence of xenogenic heart valve; I25.2 Old myocardial infarction; Z95.810 Presence of automatic (implantable) cardiac defibrillator
CPT/HCPCS: 36415; 71045; 80048; 83735; 84443; 84484; 85025; 93005; 93306; 96360; 96361; 99218; 99285; J7030; Q9957; A4216; C8929; G0378

== ENCOUNTER → 2022-03-23 | Outpatient (CLI) | payer MEDICARE, OTHER, SELFPAY ==
[2022-03-23 17:33] LABS: Absolute Neutrophil Count 3.9 X10^3/uL (2.0-7.7); Basophil# 0.04 X10^3/uL; Basophil% 0.6 % (0-1); Eosinophil# 0.16 X10^3/uL; Eosinophils% 2.3 % (0-5); Hematocrit 39.6 % (40-54); Hemoglobin 13.9 g/dL (13.0-16.5); Lymphocyte % 27.2 % (19-41); Mean Corp Hgb Conc 35.1 g/dL (32-36); Mean Corpuscular Hgb 36.1 pg (27.0-32.0); Mean Corpuscular Volume 102.9 fL (80-94); Mean Platelet Vol. 10.3 fl (6.2-12.0); Monocyte# 0.94 X10^3/uL; Monocyte% 13.4 % (0-10); NRBC Flagged by Analyzer 0 % (0-5); Neutrophil # 3.91 X10^3/uL (2.7-7.7); Neutrophil % 55.9 % (47-70); Platelet Count 159 K/mm3 (150-450); RBC Distribution Width SD 49.4 fl (35.1-43.9); Red Blood Count 3.85 M/mm3 (4.6-6.2)
[2022-03-23 18:04] LABS: ALB/GLOB Ratio 1.2 RATIO (0.9-2.4); AST(SGOT) 20 U/L (15-37); Alanine Aminotransfer ALT/SGPT 34 U/L (16-61); Albumin, Serum 3.9 g/dL (3.2-5.0); Alkaline Phosphatase 38 U/L (45-117); Anion Gap 7 (5-15); BUN 14 mg/dL (7-18); BUN/Creat Ratio 14.1 RATIO (10-20); Calcium,Total 9.1 mg/dL (8.5-10.1); Chloride 94 mmol/L (98-107); EST Glomerular Filtration Rate 77 mL/min (>60); Est Glom Filt Rate - Afr Amer 93 mL/min (>60); Globulin 3.3 g/dL (2.2-4.2); Glucose 90 mg/dL (74-106); Potassium 4.3 mmol/L (3.5-5.1); Protein, Total 7.2 g/dL (6.4-8.2); Sodium Level 127 mmol/L (136-145)
== END | disposition home or self-care (01) ==
LOC: MFPLAB 14:06
PROVIDERS: PCP Family Medicine; Visit Provider Family Medicine
DX: I25.10 Atherosclerotic heart disease of native coronary artery without angina pectoris (principal)
CPT/HCPCS: 36415; 80053; 85025

== ENCOUNTER → 2022-03-26 | Outpatient (CLI) | payer MEDICARE, OTHER, SELFPAY ==
[2022-03-26 17:47] LABS: Anion Gap 8 (5-15); BUN 14 mg/dL (7-18); BUN/Creat Ratio 14.2 RATIO (10-20); Calcium,Total 9.1 mg/dL (8.5-10.1); Chloride 98 mmol/L (98-107); Creatinine, Serum 0.98 mg/dL (0.70-1.30); EST Glomerular Filtration Rate 78 mL/min (>60); Est Glom Filt Rate - Afr Amer 94 mL/min (>60); Glucose 92 mg/dL (74-106); Potassium 4.6 mmol/L (3.5-5.1); Sodium Level 130 mmol/L (136-145)
== END | disposition home or self-care (01) ==
LOC: MFPLAB 14:30
PROVIDERS: PCP Family Medicine; Referring Provider Family Medicine; Visit Provider Family Medicine
DX: E87.1 Hypo-osmolality and hyponatremia (principal)
CPT/HCPCS: 36415; 80048

== ENCOUNTER → 2022-04-02 | Outpatient (CLI) | payer MEDICARE, OTHER, SELFPAY ==
[2022-04-02 18:03] LABS: Anion Gap 9 (5-15); BUN 16 mg/dL (7-18); BUN/Creat Ratio 13.9 RATIO (10-20); Calcium,Total 9.1 mg/dL (8.5-10.1); Chloride 100 mmol/L (98-107); Creatinine, Serum 1.15 mg/dL (0.70-1.30); EST Glomerular Filtration Rate 65 mL/min (>60); Est Glom Filt Rate - Afr Amer 79 mL/min (>60); Glucose 170 mg/dL (74-106); Sodium Level 134 mmol/L (136-145)
== END | disposition home or self-care (01) ==
LOC: MFPLAB 15:02
PROVIDERS: PCP Family Medicine; Visit Provider Family Medicine
DX: E87.1 Hypo-osmolality and hyponatremia (principal)
CPT/HCPCS: 36415; 80048

== ENCOUNTER 2022-05-14 11:46 | Emergency (ER) | payer MEDICARE, OTHER, SELFPAY ==
[2022-05-14 11:47] VITALS: BP 154/96; PULSE 54; RESP 16; TEMP 36; O2SAT 100; BMI 23.5
--- NOTE | 2022-05-14 12:00 | EX.ED.DYSGE1 ---
HPI History of Present Illness Chief Complaint: Confusion Informant: patient Onset/Context/Timing Onset: Today Context: Sudden Onset Timing: Intermittent and Lasts (Approximately 5 minutes) Quality: Confused Location: Generalized Worsened by: Nothing Relieved by: Nothing Narrative Narrative: Patient presents with confusion that occurred today while he was at work. Patient states he was at work using some parts that he normally uses. Patient states he nodded off but did not pass out. Patient states that after this he was confused and did not know how to use the parts that he was using. Patient states that this lasted approximately 5 minutes. Patient states he started to remember shortly after this. Patient states he did eat a sandwich after this but was already back to his baseline when he ate. Patient denies any shaking or tremors. Patient denies any visual changes. Patient denies any nausea or vomiting. [facility] Medical History Atherosclerotic heart disease of [place] coronary artery without angina pectoris Benign essential hypertension Chronic systolic (congestive) heart failure CKD (chronic kidney disease) Dehydration Diarrhea Difficulty balancing Essential hypertension History of AK (myocardial infarction) Hypotension Ischemic cardiomyopathy Mixed hyperlipidemia Multiple thyroid nodules Neck pain Non-rheumatic mitral regurgitation NSVT (nonsustained ventricular tachycardia) Premature ventricular contraction SOB (shortness of breath) Home Medications clopidogrel 75 mg tablet 75 mg PO DAILY anti platelet 01/07/18 [History Last Taken 03/16/22] geriatric xgcydadv-briq-ucsg 1 tab PO DAILY supplement 01/07/18 [History Last Taken 02/24/18] aspirin 81 mg tablet,delayed release (Adult Low Dose Aspirin) 81 mg PO DAILY blood thinner 02/21/18 [History Last Taken 03/15/22] magnesium 250 mg tablet 250 mg PO DAILY supplement 06/18/20 [History Last Taken 03/15/22] nitroglycerin 0.4 mg sublingual tablet 0.4 mg sublingual Q5-15M PRN Chest Pain 06/18/20 [History Last Taken Unknown] rosuvastatin 40 mg tablet 40 mg PO QHS cholesterol 06/18/20 [History Last Taken 03/15/22] cholecalciferol (vitamin D3) 50 mcg (2,000 unit) tablet 50 mcg PO DAILY vitamin 12/22/21 [History Last Taken 03/16/22] carvedilol 3.125 mg tablet 3.125 mg PO BID #60 tabs 04/01/22 [Rx Last Taken Unknown] Allergy/AdvReac Type Severity Reaction Status Date / Time KERI Inhibitors Allergy Unknown Unknown Verified 05/14/22 11:46 diclofenac [From Voltaren] Allergy Unknown Verified 05/14/22 11:46 Family History Brother Colon cancer Father COPD (chronic obstructive pulmonary disease) Mother CHF (congestive heart failure) Surgical History Encounter for insertion of cardiac resynchronization therapy pacemaker ([employer]-P) History of aortic valve replacement with bioprosthetic valve (~11/28/09) History of coronary artery bypass surgery (~11/28/09) History of detached retina repair History of heart artery stent History of knee replacement history of thyroid goiter removal History of tonsillectomy Presence of implantable cardioverter-defibrillator (ICD) (~01/27/12) S/P thyroid biopsy (~02/2018) Social History Smoking Status: Never smoker alcohol intake: never substance use type: does not use caffeine: Yes Type: coffee Number of servings: 1 ROS ROS ED Constitutional Constitutional ED: Denies chills or fever(s) Eyes Eyes: Denies blurry vision or change in vision ENT ENT ED: Denies rhinorrhea or sore throat Cardiovascular Cardiovascular: Denies chest pain or palpitations Respiratory/Chest Respiratory/Chest: Denies cough or dyspnea Gastrointestinal Gastrointestinal: Denies nausea or vomiting Genitourinary Genitourinary ED: Denies dysuria or hematuria Musculoskeletal Musculoskeletal: Denies back pain or neck pain Integumentary Denies abscess or rash Neurologic Neurologic: Denies headache(s) or weakness Allergic/Immunologic Allergic/Immunologic ED: Denies mouth swelling or urticaria EXAM Physical Exam Const Vital Signs: 05/14/22 11:47 Temperature 96.8 F L Temperature Source Temporal Pulse Rate 54 L Respiratory Rate 16 Blood Pressure 154/96 H Blood Pressure Mean 115 Pulse Ox 100 Oxygen Delivery Method Room Air Positive well nourished and well developed General Appearance ED: well developed HEENT Reports moist mucous membranes Neck supple and no JVD Resp normal respiratory effort and clear to auscultation bilaterally Cardio regular rate, regular rhythm and no murmurs GI normal to inspection, nondistended, normoactive bowel sounds and non-tender Palpation: soft Extremity normal to inspection General Extremety ED: Negative for edema or tenderness General Extremity: Negative for edema Neuro oriented x3, CN's II-XII intact bilaterally and no sensory deficits noted Sensorium / Orientation: alert Motor Exam: strength 5/5 throughout Psych mental status grossly normal Skin no rashes or lesions noted MDM MDM MDM Narrative Medical decision making narrative: EKG was obtained. On my interpretation, it showed a normal sinus rhythm with a rate of 65. VA interval, QRS interval, and QTc intervals were all normal. [place] was normal. There are no acute ST or T wave changes. CBC was within normal limits. Comprehensive metabolic profile was within normal limits. Urinalysis does not show any evidence of urinary tract infection or hematuria. Patient is feeling better on reevaluation. Patient was advised of his findings. Patient was instructed to follow-up with his primary care physician in 5 to 7 days for further evaluation. Again. Patient understood and was agreeable with the plan. All questions were answered. Lab Data Attestation: I reviewed the patient's lab results. Labs: Laboratory Results - last 24 hr 05/14/22 05/14/22 05/14/22 12:07 12:07 13:12 WBC 6.6 RBC 4.10 L Hgb 15.1 Hct 43.1 MCV 105.1 H MCH 36.8 H MCHC 35.0 RDW Std Deviation 51.2 H RDW Coeff of Etienne 13.3 Plt Count 142 L MPV 10.2 Immature Gran % (Auto) 0.300 Neut % (Auto) 57.3 Lymph % (Auto) 25.6 [place] % (Auto) 13.6 H Eos % (Auto) 2.7 Baso % (Auto) 0.5 Absolute Neuts (auto) 3.8 Absolute Lymphs (auto) 1.69 Nucleated RBC % 0 Sodium 134 L Potassium 3.8 Chloride 101 Carbon Dioxide 27.0 Anion Gap 6 BUN 14 Creatinine 1.09 Estim Creat Clear Calc 54.95 Est GFR (MDRD) Af Amer 84 Est GFR (MDRD) Non-Af 69 BUN/Creatinine Ratio 12.8 Glucose 103 Calcium 9.5 Total Bilirubin 0.70 AST 25 ALT 28 Alkaline Phosphatase 42 L Total Protein 7.3 Albumin 3.8 Globulin 3.5 Albumin/Globulin Ratio 1.1 Urine Color Yellow Urine Clarity Clear Urine pH 6.5 Ur Specific [place] 1.015 Urine Protein Negative Urine Glucose (UA) Normal Urine Ketones Negative Urine Occult Blood Negative Urine Nitrite Negative Urine Bilirubin Negative Urine Urobilinogen 1 H Ur Leukocyte Esterase Negative Urine RBC 0 SEEN Urine WBC 0 SEEN Ur Squamous Epith Cells 0 SEEN Urine Bacteria 0 SEEN Urine Mucus 0 SEEN EKG Initial EKG: Attestation: I personally reviewed and interpreted this EKG as follows: Interpretation: Sinus Rhythm (65) and No Acute Injury Pattern Prior EKG tracings: available for review Prior: Unchanged (03/16/2022) Discharge Plan Triage Chief Complaint: Confusion ED Provider: Krunal Lim Dx/Rx/DC Orders Clinical Impression: Near syncope, Episode of confusion Instructions: ED Confusion, ED Near-Fainting, Uncertain Cause Prescriptions: No Action clopidogrel 75 mg tablet 75 mg PO DAILY Rx Instructions: currently off x1 week for thyroid biopsy geriatric multivit with iron and minerals tablet tablet 1 tab PO DAILY aspirin [Adult Low Dose Aspirin] 81 mg tablet,delayed release (DR/EC) 81 mg PO DAILY magnesium 250 mg tablet 250 mg PO DAILY nitroglycerin 0.4 mg tablet, sublingual 0.4 mg SUBLINGUAL Q5-15M PRN (Reason: Chest Pain) Rx Instructions: do not exceed 3 doses per episode rosuvastatin 40 mg tablet 40 mg PO QHS cholecalciferol (vitamin D3) 50 mcg (2,000 unit) tablet 50 mcg PO DAILY carvedilol 3.125 mg tablet 3.125 mg PO BID Qty: 60 12RF Rx Instructions: must administer with a meal/food Primary Care Provider: Jonathon Bryant Referrals: Jonathon Bryant MD [Primary Care Provider] - 5-7 Days Disposition Disposition: Home, Self Care
--- NOTE | 2022-05-14 12:03 | EKG12_ITS ---
Test Reason : confusion Blood Pressure : / mmHG Vent. Rate : 065 BPM Atrial Rate : 065 BPM P-R Int : 190 ms QRS Dur : 086 ms QT Int : 404 ms P-R-T Axes : 071 000 048 degrees QTc Int : 420 ms Normal sinus rhythm Cannot rule out Inferior infarct , age undetermined Abnormal ECG Confirmed by INGRID RUIZ, ANTONIO ([id number]), medical transcription editor LUKAS WINSTON ([id number]) on 05/15/2022 1:44:18 PM Referred By: Raphael Confirmed By:ANTONIO QUINTERO MD
[2022-05-14 12:22] LABS: Absolute Lymphocyte Count 1.69 X10^3/uL (0.83-4.51); Absolute Neutrophil Count 3.8 X10^3/uL (2.0-7.7); Basophil# 0.03 X10^3/uL; Basophil% 0.5 % (0-1); Eosinophil# 0.18 X10^3/uL; Eosinophils% 2.7 % (0-5); Hematocrit 43.1 % (40-54); Hemoglobin 15.1 g/dL (13.0-16.5); Lymphocyte # 1.69 X10^3/ul (0.83-4.51); Lymphocyte % 25.6 % (19-41); Mean Corpuscular Hgb 36.8 pg (27.0-32.0); Mean Corpuscular Volume 105.1 fL (80-94); Mean Platelet Vol. 10.2 fl (6.2-12.0); Monocyte% 13.6 % (0-10); NRBC Flagged by Analyzer 0 % (0-5); Neutrophil # 3.78 X10^3/uL (2.7-7.7); Neutrophil % 57.3 % (47-70); Platelet Count 142 K/mm3 (150-450); RBC Distribution Width CV 13.3 % (11.6-14.6); RBC Distribution Width SD 51.2 fl (35.1-43.9); White Blood Count 6.6 K/mm3 (4.4-11.0)
[2022-05-14 12:39] LABS: ALB/GLOB Ratio 1.1 RATIO (0.9-2.4); AST(SGOT) 25 U/L (15-37); Alanine Aminotransfer ALT/SGPT 28 U/L (16-61); Albumin, Serum 3.8 g/dL (3.2-5.0); Alkaline Phosphatase 42 U/L (45-117); Anion Gap 6 (5-15); BUN 14 mg/dL (7-18); BUN/Creat Ratio 12.8 RATIO (10-20); Calcium,Total 9.5 mg/dL (8.5-10.1); Chloride 101 mmol/L (98-107); Creatinine, Serum 1.09 mg/dL (0.70-1.30); EST Glomerular Filtration Rate 69 mL/min (>60); Est Glom Filt Rate - Afr Amer 84 mL/min (>60); Estimated Creatinine Clearance 54.95 ml/min; Globulin 3.5 g/dL (2.2-4.2); Glucose 103 mg/dL (74-106); Potassium 3.8 mmol/L (3.5-5.1); Protein, Total 7.3 g/dL (6.4-8.2); Sodium Level 134 mmol/L (136-145)
[2022-05-14 13:17] LABS: Bacteria 0 SEEN /hpf (None Seen); Mucous, Urine 0 SEEN /hpf (<or=2+); Red Blood Cells-Urine 0 SEEN /hpf (0-5); Squamous Epithelial Cells - UA 0 SEEN /hpf (0-5); White Blood Cells 0 SEEN /hpf (0-5)
[2022-05-14 13:20] LABS: Color, Urine Yellow (Yellow); Glucose, Dipstick Normal (Normal); Ketone-Dipstick Negative (Negative); Leukocyte Esterase-Dipstick Negative /ul (Negative); Nitrite-Dipstick Negative (Negative); Occult Blood-Urine Negative /ul (Negative); Protein-Dipstick Negative (Negative); Specific Gravity, Urine 1.015 (1.002-1.030); Urine Bilirubin Dipstick Negative (Negative); Urine Clarity Clear (Clear); Urine Urobilinogen 1 mg/dl (Normal); Urine pH 6.5 (5.0 - 8.0)
[2022-05-14 13:51] VITALS: BP 150/102
== END 2022-05-14 13:52 | disposition home or self-care (01) ==
PROVIDERS: Emergency Provider Emergency Medicine; PCP Family Medicine; Visit Provider Emergency Medicine
DX: R55 Syncope and collapse (principal); I13.0 Hypertensive heart and chronic kidney disease with heart failure and stage 1 through stage 4 chronic kidney disease, or unspecified chronic kidney disease; I50.22 Chronic systolic (congestive) heart failure; I25.10 Atherosclerotic heart disease of native coronary artery without angina pectoris; N18.9 Chronic kidney disease, unspecified; I25.2 Old myocardial infarction; I25.5 Ischemic cardiomyopathy; E78.2 Mixed hyperlipidemia; I34.0 Nonrheumatic mitral (valve) insufficiency; Z79.82 Long term (current) use of aspirin; Z79.899 Other long term (current) drug therapy; Z79.02 Long term (current) use of antithrombotics/antiplatelets; Z95.1 Presence of aortocoronary bypass graft; R41.0 Disorientation, unspecified
CPT/HCPCS: 80053; 81001; 85025; 93005; 99284; A4216

== ENCOUNTER → 2022-07-02 | Outpatient (CLI) | payer MEDICARE, OTHER, SELFPAY ==
--- NOTE | 2022-07-02 13:44 | ECHOL_ITS ---
Reason For Study: CHF Procedure This was a limited 2D transthoracic echocardiogram. The study was technically difficult. Limited views were obtained. Exam performed in department. Left Ventricle Mildly dilated left ventricle. Segmental dysfunction with preserved ejection fraction (see wall motion). The estimated ejection fraction is 45 %. Unable to assess diastolic dysfunction. Posterior- Basal: Hypokinetic. Infero-Basal: Hypokinetic. Basal inferoseptal: Hypokinetic. Mid-Posterior: Hypokinetic. Mid-Inferior: Hypokinetic. Mid-inferoseptal : Hypokinetic. Philip : Hypokinetic. Right Ventricle Normal RV size. ICD or pacer leads identified within the right ventricle. Normal systolic function. Atria The left atrium is mildly enlarged. Normal right atrium. ICD or pacer leads identified within the right atrium. Mitral Valve There is no mitral annular calcification. Mild diffuse mitral valve thickening. Mild mitral valve prolapse. Tricuspid Valve Normal tricuspid valve. Mild to moderate (1-2+) tricuspid valve insufficiency. Aortic Valve Trisinus/trileaflet aortic valve. Mild diffuse aortic valve thickening. Pulmonic Valve The pulmonic valve is not well visualized. Great Vessels Normal sized aortic root. Pericardium/Pleural No pericardial effusion. MMode/2D Measurements & Calculations LVIDd: 5.5 cm IVSd: 0.97 cm Ao root diam: 2.7 cm LVIDs: 4.5 cm LVPWd: 0.75 cm RVDd: 3.9 cm FS: 18.9 % LAV(MOD-sp4): 79.6 ml LVAd ap4: 29.6 cm2 SV(MOD-sp4): 13.1 ml LVLd ap4: 7.8 cm EDV(MOD-sp4): 85.1 ml EDV(sp4-el): 95.8 ml LVAs ap4: 26.1 cm2 LVLs ap4: 7.6 cm ESV(MOD-sp4): 72.0 ml ESV(sp4-el): 75.5 ml EF(MOD-sp4): 15.4 % EF(sp4-el): 21.2 % SV(sp4-el): 20.3 ml LA A4 area: 23.8 cm2 LA dimension(2D): 4.7 cm RA A4 area: 12.6 cm2 ECHO/Echo, Limited Study Interpretation Summary The study was technically difficult. Limited views were obtained. Mildly dilated left ventricle. Segmental dysfunction with preserved ejection fraction (see wall motion). The estimated ejection fraction is 45 %. The left atrium is mildly enlarged. Mild diffuse mitral valve thickening. Mild mitral valve prolapse. Mild to moderate (1-2+) tricuspid valve insufficiency. Mild diffuse aortic valve thickening. Unable to assess diastolic dysfunction. ICD or pacer leads identified within the right atrium ICD or pacer leads identified within the right ventricle. Ordering Physician: Jonathon Lagunas Referring Physician: Jonathon Lagunas Performed By: Radha Carson RCS
== END | disposition home or self-care (01) ==
LOC: CVS 13:43
PROVIDERS: PCP Family Medicine; Referring Provider Nurse Practitioner Family; Visit Provider Nurse Practitioner Family
DX: I25.10 Atherosclerotic heart disease of native coronary artery without angina pectoris (principal); I25.5 Ischemic cardiomyopathy; I10 Essential (primary) hypertension
CPT/HCPCS: 93308

== ENCOUNTER → 2022-07-22 | Outpatient (CLI) | payer MEDICARE, OTHER, SELFPAY ==
--- NOTE | 2022-07-22 12:30 | STRESSREP_ITS ---
Stress Test Report Date: 07-22-2022 Procedure: Pharmacologic stress nuclear imaging study Indications: Shortness of breath/dyspnea, CAD, CABG, status post AVR, CHF, cardiac dysrhythmia, status post ICD, knee replacement Consent: Per the patient Procedure: The patient underwent pharmacologic (Regadenoson 0.4mg ) evaluation with a peak heart rate of 86 beats per minute (60%predicted maximal heart rate) and a resting blood pressure of 110/70 mmHg and a peak blood pressure of 124/80 mmHg. The baseline ECG demonstrated an electronic atrial paced rhythm with occasional PVCs and nonspecific ST/T wave abnormality. The peak pharmacologic ECG demonstrated no obvious ECG changes. There were occasional PVCs pretest and during recovery. There was no complaint of chest discomfort during pharmacologic infusion or recovery. The examination was discontinued secondary to completion of protocol. Impression: 1. Pharmacologic (Regadenoson) evaluation 2. Peak pharmacologic ECG with no obvious ECG change. 3. There were occasional PVCs pretest and during recovery. 4. Nuclear images pending Myocardial perfusion imaging study: Technique: The patient was injected with 14.1 millicuries of technetium 99m Cardiolite and subsequently rest SPECT Cardiolite nuclear imaging was obtained in the horizontal long, vertical long, and short axis views. The patient underwent pharmacologic (Regadenoson) evaluation with a peak heart rate of 86 beats per minute (60% percent predicted maximal heart rate) and a resting blood pressure of 110/70 mmHg and a peak blood pressure of 124/80 mmHg. The patient was injected with 42.7 millicuries of technetium 99m Cardiolite and subsequently stress SPECT Cardiolite nuclear imaging was obtained in the horizontal long, v ertical long, and short axis views. A gated Cardiolite study at peak stress was obtained. Interpretation: Rest and stress SPECT Cardiolite nuclear imaging status post realignment, normalization, and attenuation correction demonstrate the appearance of diminished to absence of myocardial perfusion/tracer uptake in portions of the mid to distal lateral/inferolateral/inferoapical/lateral apical segments without significant change between rest and stress. There is diminished end-systolic thickening and brightening. The gated Cardiolite study demonstrates diminished myocardial thickening and inward wall motion. The reported LVEF is 44%. Impression: 1. Rest and stress SPECT current nuclear imaging demonstrate myocardial perfusion changes appearing compatible with an area of previous myocardial injury/infarction involving portions of the lateral/inferior lateral/inferoapical/lateral apical segments with no myocardial perfusion changes considered diagnostic for associated stress-induced myocardial ischemia. 2. The gated Cardiolite study reports an LVEF of 44%. This note was generated with [employer] software. It may contain incorrect words, spelling, and punctuation that were not noted in checking the note before signing.
== END | disposition home or self-care (01) ==
LOC: CVS 06:42
PROVIDERS: PCP Family Medicine; Referring Provider Nurse Practitioner Family; Visit Provider Nurse Practitioner Family
DX: I25.5 Ischemic cardiomyopathy (principal); R93.1 Abnormal findings on diagnostic imaging of heart and coronary circulation; I25.10 Atherosclerotic heart disease of native coronary artery without angina pectoris; I10 Essential (primary) hypertension; E78.2 Mixed hyperlipidemia; Z95.3 Presence of xenogenic heart valve
CPT/HCPCS: 78452; 93017; A9500; A4216; J2785

== ENCOUNTER → 2022-08-12 | Outpatient (CLI) | payer MEDICARE, OTHER, SELFPAY ==
[2022-08-12 15:31] LABS: Bacteria 0 SEEN /hpf (None Seen); Mucous, Urine 0 SEEN /hpf (<or=2+); Red Blood Cells-Urine 0 SEEN /hpf (0-5); Squamous Epithelial Cells - UA 0 SEEN /hpf (0-5); White Blood Cells 0 SEEN /hpf (0-5)
[2022-08-12 17:36] LABS: Color, Urine Yellow (Yellow); Glucose, Dipstick Normal (Normal); Ketone-Dipstick Negative (Negative); Leukocyte Esterase-Dipstick Negative /ul (Negative); Nitrite-Dipstick Negative (Negative); Occult Blood-Urine Negative /ul (Negative); Protein-Dipstick Negative (Negative); Urine Bilirubin Dipstick Negative (Negative); Urine Clarity Clear (Clear); Urine Urobilinogen Normal (Normal); Urine pH 6.5 (5.0 - 8.0)
[2022-08-12 17:45] LABS: Absolute Neutrophil Count 3.7 X10^3/uL (2.0-7.7); Basophil# 0.05 X10^3/uL; Basophil% 0.7 % (0-1); Eosinophil# 0.19 X10^3/uL; Eosinophils% 2.7 % (0-5); Hematocrit 42.5 % (40-54); Hemoglobin 14.7 g/dL (13.0-16.5); Lymphocyte % 29.8 % (19-41); Mean Corp Hgb Conc 34.6 g/dL (32-36); Mean Corpuscular Hgb 37.1 pg (27.0-32.0); Mean Corpuscular Volume 107.3 fL (80-94); Mean Platelet Vol. 10.9 fl (6.2-12.0); Monocyte# 0.94 X10^3/uL; Monocyte% 13.4 % (0-10); NRBC Flagged by Analyzer 0 % (0-5); Neutrophil # 3.73 X10^3/uL (2.7-7.7); Platelet Count 157 K/mm3 (150-450); RBC Distribution Width CV 13.2 % (11.6-14.6); RBC Distribution Width SD 52.6 fl (35.1-43.9); Red Blood Count 3.96 M/mm3 (4.6-6.2)
[2022-08-12 18:06] LABS: ALB/GLOB Ratio 1.2 RATIO (0.9-2.4); AST(SGOT) 20 U/L (15-37); Alanine Aminotransfer ALT/SGPT 30 U/L (16-61); Albumin, Serum 3.8 g/dL (3.2-5.0); Alkaline Phosphatase 42 U/L (45-117); Anion Gap 8 (5-15); BUN 17 mg/dL (7-18); BUN/Creat Ratio 15.6 RATIO (10-20); Chloride 103 mmol/L (98-107); Cholesterol 116 mg/dL (200); Creatinine, Serum 1.09 mg/dL (0.70-1.30); EST Glomerular Filtration Rate 69 mL/min (>60); Est Glom Filt Rate - Afr Amer 84 mL/min (>60); Globulin 3.2 g/dL (2.2-4.2); Glucose 82 mg/dL (74-106); High Density Lipoprotein 41 mg/dL; Microalbumin,Random Urine 21.7 mg/L (NO RANGE EST.); Microalbumin:Creatinine Ratio 17.5 mg/g CRE (<30 mg/g CRE); Phosphorus 3.8 mg/dL (2.5-4.9); Protein, Urine (Random) 15.6 mg/dL (<11.9); Protein:Creat Ratio 126 mg/g CRE (0-200); Sodium Level 137 mmol/L (136-145); Triglycerides 79 mg/dL; Very Low Density Lipoprotein 16 mg/dL (5-40)
== END | disposition home or self-care (01) ==
LOC: MFPLAB 15:29
PROVIDERS: PCP Family Medicine; Referring Provider Family Medicine; Visit Provider Family Medicine
DX: E11.22 Type 2 diabetes mellitus with diabetic chronic kidney disease (principal); N18.9 Chronic kidney disease, unspecified; E55.9 Vitamin D deficiency, unspecified
CPT/HCPCS: 36415; 80053; 80061; 81001; 82043; 82306; 82570; 83036; 84100; 84156; 85025

== ENCOUNTER 2022-08-24 17:19 | Outpatient (CLI) | payer MEDICARE, OTHER, SELFPAY ==
--- NOTE | 2022-08-24 17:30 | US_ITS ---
STUDY: THYROID ULTRASOUND REASON FOR EXAM: Male, 77 years old. Nodules. TECHNIQUE: Ultrasound evaluation of the thyroid was performed with real-time and static henning-scale imaging. COMPARISON: January 03, 2021 FINDINGS: RIGHT LOBE: The right lobe of the thyroid gland measures 4.7 x 1.9 x 1.9 cm. There is a homogeneous echotexture. There are multiple thyroid nodules. In the upper pole there is a 0.7 x 0.6 x 0.3 cm hypoechoic nodule which is wider than it is tall. Ill-defined margins. There are internal microcalcifications. In the lower pole there is a 2.8 x 2.3 x 2.3 cm hypoechoic nodule with calcified wall in the evaluation of the internal structure. LEFT LOBE: The left lobe of the thyroid gland measures 4.4 x 1.7 x 1.5 cm. There is a homogeneous echotexture. Multiple nodules. In the upper pole is a 0.8 x 0.5 x 0.4 cm hypoechoic nodule with microcalcifications. Also seen in the upper pole is 0.7 x 0.5 x 0.4 cm hypoechoic nodule. In the mid thyroid there is a 0.6 x 0.6 x 0.5 cm hypoechoic nodule with questionable internal calcifications. ISTHMUS: The isthmus measures 0.34 cm. In the right isthmus there is a 0.5 x 0.4 x 0.3 cm isoechoic nodule with internal calcifications as well as a 0.9 x 0.9 x 0.6 cm heterogenous nodule. In the mid isthmus there is a 0.4 x 0.4 x 0.2 cm complex nodule. The regional lymph nodes are normal. US/Thyroid IMPRESSION: 1. Multiple bilateral thyroid nodules. 2. Large peripherally calcified nodule in the lower lobe of the right thyroid. This is considered moderately suspicious, TR 4 using TI-RADS characterization. FNA recommended.. 3. The remainder of the nodules are considered moderately suspicious, TR 4. No FNA or follow-up is necessary given its small size. Electronically Signed: Vipul uGardado DO at 21:49 EST ,
== END 2022-08-24 23:59 | disposition home or self-care (01) ==
LOC: US 17:20
PROVIDERS: PCP Family Medicine; Visit Provider Family Medicine
DX: E04.2 Nontoxic multinodular goiter (principal)
CPT/HCPCS: 76536

== ENCOUNTER → 2022-12-31 | Outpatient (CLI) | payer MEDICARE, OTHER, SELFPAY ==
[2022-12-31 16:27] LABS: Bacteria 0 SEEN /hpf (None Seen); Mucous, Urine 0 SEEN /hpf (<or=2+); Red Blood Cells-Urine 0 SEEN /hpf (0-5); Squamous Epithelial Cells - UA 0 SEEN /hpf (0-5)
[2022-12-31 17:56] LABS: Color, Urine Yellow (Yellow); Glucose, Dipstick Normal (Normal); Ketone-Dipstick 5 mg/dl (Negative); Leukocyte Esterase-Dipstick 25 /ul (Negative); Nitrite-Dipstick Negative (Negative); Occult Blood-Urine Negative /ul (Negative); Protein-Dipstick 15 mg/dl (Negative); Urine Bilirubin Dipstick Negative (Negative); Urine Clarity Clear (Clear); Urine Urobilinogen 1 mg/dl (Normal)
[2022-12-31 18:06] LABS: Absolute Lymphocyte Count 1.49 X10^3/uL (0.83-4.51); Absolute Neutrophil Count 3.4 X10^3/uL (2.0-7.7); Basophil# 0.04 X10^3/uL; Basophil% 0.7 % (0-1); Eosinophil# 0.16 X10^3/uL; Eosinophils% 2.7 % (0-5); Hemoglobin 14.3 g/dL (13.0-16.5); Lymphocyte # 1.49 X10^3/ul (0.83-4.51); Lymphocyte % 25.6 % (19-41); Mean Corp Hgb Conc 34.9 g/dL (32-36); Mean Corpuscular Hgb 38.6 pg (27.0-32.0); Mean Corpuscular Volume 110.8 fL (80-94); Mean Platelet Vol. 11.4 fl (6.2-12.0); Monocyte# 0.69 X10^3/uL; Monocyte% 11.8 % (0-10); NRBC Flagged by Analyzer 0 % (0-5); Neutrophil # 3.43 X10^3/uL (2.7-7.7); Neutrophil % 58.9 % (47-70); Platelet Count 124 K/mm3 (150-450); RBC Distribution Width CV 14.2 % (11.6-14.6); RBC Distribution Width SD 58.4 fl (35.1-43.9); White Blood Count 5.8 K/mm3 (4.4-11.0)
[2022-12-31 18:34] LABS: Vitamin D,25 Hydroxy 63.2 ng/mL
[2022-12-31 18:43] LABS: White Blood Cells 0-5 SEEN /hpf (0-5)
[2022-12-31 18:50] LABS: ALB/GLOB Ratio 1.2 RATIO (0.9-2.4); AST(SGOT) 23 U/L (15-37); Alanine Aminotransfer ALT/SGPT 25 U/L (16-61); Albumin, Serum 3.7 g/dL (3.2-5.0); Alkaline Phosphatase 36 U/L (45-117); Anion Gap 9 (5-15); BUN 19 mg/dL (7-18); BUN/Creat Ratio 15.6 RATIO (10-20); Calcium,Total 8.8 mg/dL (8.5-10.1); Chloride 105 mmol/L (98-107); Cholesterol 123 mg/dL (200); Creatinine, Serum 1.22 mg/dL (0.70-1.30); EST Glomerular Filtration Rate 61 mL/min (>60); Est Glom Filt Rate - Afr Amer 74 mL/min (>60); Globulin 3.2 g/dL (2.2-4.2); Glucose 125 mg/dL (74-106); High Density Lipoprotein 46 mg/dL; Phosphorus 3.4 mg/dL (2.5-4.9); Potassium 3.5 mmol/L (3.5-5.1); Protein, Total 6.9 g/dL (6.4-8.2); Sodium Level 136 mmol/L (136-145); Thyroid Stim Hormone (TSH) 1.83 uIU/mL (0.358-3.74); Triglycerides 86 mg/dL; Very Low Density Lipoprotein 17 mg/dL (5-40)
[2022-12-31 18:58] LABS: Microalbumin,Random Urine 30.6 mg/L (NO RANGE EST.); Microalbumin:Creatinine Ratio 20.4 mg/g CRE (<30 mg/g CRE); Protein, Urine (Random) 17.2 mg/dL (<11.9); Protein:Creat Ratio 115 mg/g CRE (0-200)
[2024-01-01 07:43] LABS: Anisocytosis 3+; Differential Comment SCANNED
== END | disposition home or self-care (01) ==
LOC: MFPLAB 16:25
PROVIDERS: PCP Family Medicine; Referring Provider Family Medicine; Visit Provider Family Medicine
DX: E11.22 Type 2 diabetes mellitus with diabetic chronic kidney disease (principal); E55.9 Vitamin D deficiency, unspecified
CPT/HCPCS: 80053; 80061; 81001; 82043; 82306; 82570; 83036; 84100; 84156; 84443; 85025

== ENCOUNTER → 2023-04-27 | Outpatient (CLI) | payer MEDICARE, OTHER, SELFPAY ==
[2023-04-27 15:34] LABS: Bacteria 0 SEEN /hpf (None Seen); Mucous, Urine 0 SEEN /hpf (<or=2+); Red Blood Cells-Urine 0 SEEN /hpf (0-5); Squamous Epithelial Cells - UA 0 SEEN /hpf (0-5); White Blood Cells 0 SEEN /hpf (0-5)
[2023-04-27 17:58] LABS: Color, Urine Yellow (Yellow); Glucose, Dipstick Normal (Normal); Ketone-Dipstick Negative (Negative); Leukocyte Esterase-Dipstick Negative /ul (Negative); Nitrite-Dipstick Negative (Negative); Occult Blood-Urine Negative /ul (Negative); Protein-Dipstick Negative (Negative); Urine Bilirubin Dipstick Negative (Negative); Urine Clarity Clear (Clear); Urine Urobilinogen Normal (Normal); Urine pH 6.5 (5.0 - 8.0)
[2023-04-27 17:59] LABS: Absolute Lymphocyte Count 1.92 X10^3/uL (0.83-4.51); Absolute Neutrophil Count 3.4 X10^3/uL (2.0-7.7); Basophil# 0.03 X10^3/uL; Basophil% 0.5 % (0-1); Eosinophil# 0.22 X10^3/uL; Eosinophils% 3.4 % (0-5); Hematocrit 40.2 % (40-54); Lymphocyte # 1.92 X10^3/ul (0.83-4.51); Mean Corp Hgb Conc 34.8 g/dL (32-36); Mean Corpuscular Hgb 39.3 pg (27.0-32.0); Mean Corpuscular Volume 112.9 fL (80-94); Mean Platelet Vol. 11.1 fl (6.2-12.0); Monocyte# 0.81 X10^3/uL; Monocyte% 12.6 % (0-10); NRBC Flagged by Analyzer 0 % (0-5); Neutrophil # 3.41 X10^3/uL (2.7-7.7); Neutrophil % 53.2 % (47-70); Platelet Count 137 K/mm3 (150-450); RBC Distribution Width CV 14.3 % (11.6-14.6); RBC Distribution Width SD 60.2 fl (35.1-43.9); Red Blood Count 3.56 M/mm3 (4.6-6.2); White Blood Count 6.4 K/mm3 (4.4-11.0)
[2023-04-27 18:33] LABS: Microalbumin,Random Urine 7.8 mg/L (NO RANGE EST.); Microalbumin:Creatinine Ratio 19.9 mg/g CRE (<30 mg/g CRE)
[2023-04-27 18:48] LABS: Vitamin D,25 Hydroxy 73.3 ng/mL
[2023-04-27 18:57] LABS: Hemoglobin A1c 6.2 % (3.8-5.6)
[2023-04-27 19:09] LABS: ALB/GLOB Ratio 1.1 RATIO (0.9-2.4); AST(SGOT) 25 U/L (15-37); Alanine Aminotransfer ALT/SGPT 32 U/L (16-61); Albumin, Serum 3.8 g/dL (3.2-5.0); Alkaline Phosphatase 52 U/L (45-117); Anion Gap 6 (5-15); BUN 18 mg/dL (7-18); BUN/Creat Ratio 14.6 RATIO (10-20); Calcium,Total 9.1 mg/dL (8.5-10.1); Chloride 104 mmol/L (98-107); Cholesterol 134 mg/dL (200); Creatinine, Serum 1.23 mg/dL (0.70-1.30); EST Glomerular Filtration Rate 60 mL/min (>60); Est Glom Filt Rate - Afr Amer 73 mL/min (>60); Globulin 3.4 g/dL (2.2-4.2); Glucose 113 mg/dL (74-106); High Density Lipoprotein 53 mg/dL; Phosphorus 3.5 mg/dL (2.5-4.9); Potassium 3.9 mmol/L (3.5-5.1); Protein, Total 7.2 g/dL (6.4-8.2); Sodium Level 135 mmol/L (136-145); Triglycerides 88 mg/dL; Very Low Density Lipoprotein 18 mg/dL (5-40)
== END | disposition home or self-care (01) ==
LOC: MFPLAB 15:31
PROVIDERS: PCP Family Medicine; Visit Provider Family Medicine
DX: E11.22 Type 2 diabetes mellitus with diabetic chronic kidney disease (principal); I25.10 Atherosclerotic heart disease of native coronary artery without angina pectoris; E55.9 Vitamin D deficiency, unspecified
CPT/HCPCS: 36415; 80053; 80061; 81001; 82043; 82306; 82570; 83036; 84100; 85025

== ENCOUNTER 2023-10-20 08:39 | Outpatient (CLI) | payer MEDICARE, OTHER, SELFPAY ==
[2023-10-20 08:41] LABS: Bacteria 0 SEEN /hpf (None Seen); Red Blood Cells-Urine 0 SEEN /hpf (0-5); Squamous Epithelial Cells - UA 0 SEEN /hpf (0-5)
--- OUTSIDE RECORDS SUMMARY | 2023-10-20 09:03 | XMS RPT_ITS | CCD ---
Author Name Unknown Address [address] [place] [address] Organization [facility] Care Team Providers Care Back Hand Name Role Phone DESI RODRIGUEZ Unavailable Unavailable PARAG QUEEN Unavailable Unavailable NORBERTO RIVERA Unavailable Unavailable PARAG QUEEN Unavailable Unavailable Sohan Bryant Primary Care Provider NOAH HOOKER Attending Unavailable SOHAN BRYANT Referring SOHAN Henderson Primary Care Unavailjoel ashford Allergies Allergy Classification Reported Allergen(s) Allergy Type Date of Onset Reaction(s) Facility (2 sources) Angiotensin-con verting enzyme inhibitor agent; Translations: [LEV INHIBITORS] Propensity to adverse reactions to drug 0 Unknown [facility] (2 sources) Diclofenac; Translations: [DICLOFENAC SODIUM] Drug Allergy 0 Unknown [facility] (1 source) Diclofenac Drug Allergy 1 Rash, Swelling [facility] (2 sources) Enalapril; Translations: [ENALAPRIL] Drug Allergy 0 [facility] (1 source) OTHER; Translations: [OTHER] Propensity to adverse reactions (disorder) 1 [facility] Repository Medications Completed/Discontinued Medications Medication Drug Class(es) Dates Sig (Normalized) Sig (Original) aspirin 81 mg delayed release oral tablet (1 source) Platelet Aggregation Inhibitor, Nonsteroidal Anti-inflammatory Drug Start: 10-26-2007 aspirin(ECOTRIN LOW STRENGTH 81 MG TAB) Indications: Coronary atherosclerosis of unspecified type of vessel, absentee-shawnee or graft Take one(1) tablet daily. 0 10/26/2007 Active Problems Active Problems Problem Classification Problem Date Documented Da te Episodic/Chronic Acute myocardial infarction (1 source) Acute myocardial infarction; Translations: [ST elevation (STEMI) myocardial infarction involving other sites] 03-22-2008 Chronic Aortic; peripheral; and visceral artery aneurysms (1 source) Aneurysm of aortic root; Translations: [Aneurysm of aortic root] Onset: 11-28-2009 02-14-2020 Chronic Cardiac dysrhythmias (1 source) Multiple premature ventricular complexes; Translations: [Ventricular premature depolarization] 02-14-2020 Chronic Conduction disorders (1 source) Automatic implantable cardiac defibrillator in situ; Translations: [Presence of automatic (implantable) cardiac defibrillator] Onset: 01-27-2012 02-14-2020 Chronic Congestive heart failure; nonhypertensive (2 sources) Congestive heart failure; Translations: [Heart failure, unspecified] 09-29-2021 Chronic Coronary atherosclerosis and other heart disease (4 sources) Coronary atherosclerosis; Translations: [Atherosclerotic heart disease of absentee-shawnee coronary artery without angina pectoris] Onset: 12-25-2008 02-17-2017 Chronic Disorders of lipid metabolism (1 source) Mixed hyperlipidemia; Translations: [Mixed hyperlipidemia] 09-29-2021 Chronic Diverticulosis and diverticulitis (2 sources) Diverticulosis of colon; Translations: [Diverticulosis of large intestine without perforation or abscess without bleeding] Onset: 01-17-2007 01-17-2007 Chronic Essential hypertension (2 sources) Essential hypertension; Translations: [Essential (primary) hypertension] 09-29-2021 Chronic Heart valve disorders (4 sources) Aortic valve disorder; Translations: [Nonrheumatic aortic valve disorder, unspecified] Onset: 11-28-2009 12-19-2009 Chronic Hemorrhoids (1 source) External hemorrhoids; Translations: [Residual hemorrhoidal skin tags] 02-17-2017 Episodic Hyperplasia of prostate (2 sources) Benign prostatic hyperplasia; Translations: [Benign prostatic hyperplasia with lower urinary tract symptoms] 02-17-2017 Chronic Osteoarthritis (2 sources) Disorder of lower leg; Translations: [Unilateral primary osteoarthritis, unspecified knee] Onset: 04-07-2006 04-07-2006 Chronic Other and unspecified benign neoplasm (1 source) History of polyp of colon; Translations: [Personal history of colonic polyps] 10-14-2006 Episodic Other and unspecified benign neoplasm (1 source) Polyp of colon; Translations: [Polyp of colon] 02-14-2020 Episodic Thyroid disorders (1 source) Multinodular goiter; Translations: [Nontoxic multinodular goiter] Chronic Past or Other Problems Problem Classification Problem Date Documented Date Episodic/Chronic Other and unspecified benign neoplasm (1 source) Benign neoplasm of colon; Translations: [Benign neoplasm of colon, unspecified] Onset: 01-17-2007 01-17-2007 Episodic Other skin disorders (1 source) Multiple actinic keratoses; Translations: [Actinic keratosis] Onset: 02-17-2017 02-17-2017 Episodic Residual codes; unclassified (1 source) Family history of malignant neoplasm of gastrointestinal tract; Translations: [Family history of malignant neoplasm of digestive organs] Onset: 01-17-2007 01-17-2007 Episodic Residual codes; unclassified (1 source) Past history of procedure; Translations: [Personal history of other medical treatment] Onset: 02-24-2018 02-14-2020 Episodic Results Test Name Value Interpretation Reference Range Facil ity Vital Signs Date Time Vital Sign Value Performing Clinician Faci lity 09-08-2022 14:01-0500 Body height 175.3 cm Noah Hooker MD Work Phone: [facility] 09-08-2022 14:01-0500 Body temperature 97.7 [degF] Noah Hooker MD Work Phone: [facility] 09-08-2022 14:01-0500 Body weight 71.76 kg Noah Hooker MD Work Phone: [facility] 09-08-2022 14:01-0500 Diastolic blood pressure 82 mm[Hg] Noah Hooker MD Work Phone: [facility] 09-08-2022 14:01-0500 Heart rate 80 /min Noah Hooker MD Work Phone: [facility] 09-08-2022 14:01-0500 SaO2% (BldA) [Mass fraction] 94 % Noah Hooker MD Work Phone: [facility] 09-08-2022 14:01-0500 Systolic blood pressure 110 mm[Hg] Noah Hooker MD Work Phone: [facility] Encounters Encounter Date Encounter Type Care Provider Facility Start: 09-08-2022 End: 09-08-2022 ambulatory NOAH HOOKER Facility:[facility] Start: 09-08-2022 End: 09-08-2022 Patient encounter procedure Noah Hooker MD Work Phone: General Surgery Procedures Date Procedure Procedure Detail Performing Clinician Start: 11-28-2009 History of coronary artery bypass grafting S/P CABG (coronary artery bypass graft) Noah Hooker MD Work Phone: Plan of Treatment Date Care Activity Detail Author Start: 03-29-2029 Urine microalbumin profile DTA P,TDAP,TD (2 - Td or Tdap) [facility] Start: 10-04-2021 ADVANCE DIRECTIVE DISCUSSION ADVANCE DIRECTIVE DISCUSSION [facility] Start: 10-04-2021 DEPRESSION ASSESSMENT DEPRESSION ASS ESSMENT [facility] Start: 02-17-2018 PNEUMOCOCCAL: 65+ (3 - PPSV23 if available, else PCV20) PNEUMOCOCCAL: 65+ (3 - PPSV23 if available, else PCV20) [facility] Start: 07-04-2017 DIABETES SCREEN DIABETES SCREEN [facility] Start: 05-11-2013 Hepatitis B surface antibody level LDL CHOLESTEROL [facility] Start: 1993 SHINGRIX VACCINE (1 of 2) FRANCIS GRIX VACCINE (1 of 2) [facility] Start: 1961 ANNUAL PCP TEAM WAREHOUSE SELECTOR CHELY DISEASE VISIT ANNUAL PCP TEAM CHRONIC DISEASE VISIT [facility] Start: 1961 BP CONTROLLED (<130/80) BP CONTROLLE D (<130/80) [facility] Immunizations Immunization Date Immunization Notes Care Provider Fa cili 07-20-2019 Influenza, injectabl e, Madin Lucy Canine Kidney, preservative free, quadrivalent Noah Hooker MD Work Phone: [facility] 03-29-2019 tetanus toxoid, redu bella diphtheria toxoid, and acellular pertussis vaccine, adsorbed Noah Hooker MD Work Phone: [facility] 05-24-2017 influenza, high dose seasonal, preservative-free Noah Hooker MD Work Phone: [facility] Work Phone: 02-17-2017 pneumococcal conjuga te vaccine, 13 valent Noah Hooker MD Work Phone: [facility] Work Phone: 07-30-2016 influenza, high dose seasonal, preservative-free Noah Hooker MD Work Phone: [facility] 06-18-2014 influenza, high dose seasonal, preservative-free Noah Hooker MD Work Phone: [facility] Work Phone: 07-17-2010 influenza virus vacc ine, unspecified formulation Noah Hooker MD Work Phone: [facility] Work Phone: 07-10-2009 influenza virus vacc ine, unspecified formulation Noah Hooker MD Work Phone: [facility] Work Phone: 07-31-2008 influenza virus vacc ine, unspecified formulation Noah Hooker MD Work Phone: [facility] 12-18-2007 pneumococcal polysaccharide vaccine, 23 valent Noah Hooker MD Work Phone: [facility] 04-03-2003 tetanus and diphther ia toxoids, adsorbed, preservative free, for adult use (2 Lf of tetanus toxoid and 2 Lf of diphtheria toxoid) Noah Hooker MD Work Phone: [facility] Work Phone: Payers Date Payer Category Payer Medicare [id number] 2008 Medicare MEDICARE MEDICAR E A AND B [id number] 2008-Present [phone] [place] [address] Medicare [id number] 2008 Medicare [id number] Social History Date Type Detail Facility Tobacco smoking stat [facility] Never smoked tobacco [facility] Start: 09-08-2022 Alcohol intake Current non-dr brand ambassador of alcohol (finding) [facility] Start: 1945 Sex Assigned At Male [facility] Work Phone: Medical Equipment Procedure Code Equipment Code Equipment Origin al Text Equipment Identifier Dates Dual Icd [employer]-01/27/2012 [id number] Start: 01-27-2012 Rv Icd [employer]-01/27/2012 [id number] Start: 01-27-2012 Progress note 09-20-2022 Note Date & Type Note Facility 09-20-2022 Note HNO ID: [id number] Author: Noah Hooker MD Service: ? Author Type: Physician Type: Progress Notes Filed: 09/20/2022 9:51 AM Note Text: HISTORY AND PHYSICAL Sohan Kamara 1945 REFERRING PHYSICIAN: Sohan Bryant, * CHIEF COMPLAINT: Consult (Thyroid nodule) HPI: The patient is a 77 year old male with a complaint of Multinodular goiter (primary encounter diagnosis). Patient had a thyroid ultrasound completed at [facility] on 08/24/2022. This showed several small subcentimeter nodules on the left side. On the right side it showed a nodule that was 2.8 x 2.3 x 2.3 cm in greatest dimension. The patient has had this biopsied on 01/29/2021. This came back consistent with a benign follicular nodule on the right side and the isthmus was also a benign follicular nodule. This was completed by Dr. Mclean. The patient is being seen by me today at the request of Dr. Sohan Bryant MD for my opinion and advice regarding Multinodular goiter (primary encounter diagnosis). 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 Aortic root replacement by Dr Mabry at [facility] Aortic regurgitation Benign hypertension BPH (benign prostatic hyperplasia) Mild CAD (coronary artery disease) Chronic kidney disease Chronic systolic heart failure (HCC) Colon polyps Diabetes mellitus (HCC) Diverticulosis External hemorrhoids without mention of complication Family history of malignant neoplasm of gastrointestinal tract family history of colon cancer Generalized osteoarthrosis, unspecified site bilateral knees H/O echocardiogram 02/24/2018 EF 30-35%, mod MR, aortic sclerosis History of aortic valve replacement 11/28/2009 Aortic root replacement with a Medtronic FreeStyle porcine bioprosthesis at the time of CABG done by Dr Prakash at [facility] ICD (implantable cardioverter-defibrillator) in place 01/27/2012 Dual chamber ICD implant by Dr. Cowan at [facility], [employer] Ischemic cardiomyopathy Mitral regurgitation Mixed hyperlipidemia Hyperlipidemia PVC's (premature ventricular contractions) Which have interfered with assessments of EF in the past S/P CABG (coronary artery bypass graft) 11/28/2009 CABG x 2 with MARQUEZ-LAD, SVG-PDA by Dr Mabry at [facility] Thyroid nodule Vitamin D deficiency PAST SURGICAL HISTORY Procedure Laterality Date ARTHRP KNE CONDYLEANDPLATU MEDIALANDLAT COMPARTMENTS 2009 left knee COLONOSCOPY FLX DX W/COLLJ SPEC WHEN PFRMD 07/23/2003 Colonoscopy COLONOSCOPY FLX DX W/COLLJ SPEC WHEN PFRMD 01/17/2007 repeat in -2011 CORONARY ARTERY BYPASS GRAFT HX 11/28/2009 CABG x 2 CORONARY ENDARTERCOMY OPEN ANY METHOD 2007 Angioplasty EP STUDY 06/29/2011 Negative INSJ/RPLCMT PERM DFB W/TRNSVNS LDS 1/DUAL CHMBR Left 01/27/2012 Dual ICD implant PAST SURGICAL HISTORY OF 1966 Goiter , left PAST SURGICAL HISTORY OF 2008 FNA thyroid nodule RPR 1ST INGUN HRNA AGE 3 YRS/> REDUCIBLE Hernia repair, inguinal TONSILLECTOMY PRIMARY/SECONDARY Tonsillectomy VASECTOMY UNI/BI SPX W/POSTOP SEMEN EXAMS Current Outpatient Medications Medication Sig latanoprost (XALATAN) 0.005 % ophthalmic solution fluorometholone (FML LIQUID FILM) 0.1 % ophthalmic suspension instill 1 drop BOTH EYES twice a day SIMBRINZA 1-0.2 % Ophth Susp place 1 drop into left eye twice a day rosuvastatin (CRESTOR) 40 mg tablet Take 1 tablet by mouth once daily. nitroglycerin sublingual (NITROQUICK) 0.4 mg SL tablet Dissolve 0.4 mg under the tongue every 5 minutes as needed. furosemide (LASIX) 20 mg tablet Take 1 tablet by mouth once daily. clopidogrel (PLAVIX) 75 mg tablet Take 1 tablet by mouth once daily. simvastatin (ZOCOR) 80 mg tablet Take 1 tablet by mouth daily at bedtime. (Patient taking differently: Take 40 mg by mouth daily at bedtime.) carvedilol (COREG) 25 mg ORAL tablet Take 1 tablet by mouth twice daily. (Patient taking differently: Take 6.25 mg by mouth twice daily.) Calcium-Cholecalciferol, D3, 600 mg-10 mcg (400 unit) cap Take by mouth once daily. aspirin(ECOTRIN LOW STRENGTH 81 MG TAB) Take one(1) tablet daily. valACYclovir (VALTREX) 1 gram Take 1,000 mg by mouth three times daily. (Patient not taking: Reported on 09/08/2022) dorzolamide-timolol (COSOPT) 22.3-6.8 mg/mL ophthalmic solution (Patient not taking: Reported on 09/08/2022) losartan 50 mg ORAL tablet Take 1 tablet by mouth twice daily. (Patient not taking: Reported on 09/08/2022) spironolactone (ALDACTONE) 25 mg ORAL tablet Take 1 tablet by mouth once daily. (Patient not taking: Reported on 09/08/2022) No current facility-administered medications for this visit. ALLERGIES: Lev Inhibitors, Diclofenac Sodium, Enalapril, and Voltaren Gel [Other] PERSONAL HISTORY: Social History Tobacco Use Smoking status: Never Smokeless tobacco: Never Vaping Use Vaping Use: Never used Substance Use Topics Alcohol use: No Drug use (more content not included)... [facility] History of Present illness Narrative 09-20-2022 Noah Hooker MD - 09/20/2022 9:43 AM Melania Mejia LPN - 09/08/2022 2:05 PM EST Note Date & Type Note Facility 09-20-2022 History of Presen t illness Narrative HISTORY AND PHYSICAL Sohan Kamara 1945 REFERRING PHYSICIAN: Sohan Bryant, * CHIEF COMPLAINT: Consult (Thyroid nodule) HPI: The patient is a 77 year old male with a complaint of Multinodular goiter (primary encounter diagnosis). Patient had a thyroid ultrasound completed at [facility] on 08/24/2022. This showed several small subcentimeter nodules on the left side. On the right side it showed a nodule that was 2.8 x 2.3 x 2.3 cm in greatest dimension. The patient has had this biopsied on 01/29/2021. This came back consistent with a benign follicular nodule on the right side and the isthmus was also a benign follicular nodule. This was completed by Dr. Mclean. The patient is being seen by me today at the request of Dr. Sohan Bryant MD for my opinion and advice regarding Multinodular goiter (primary encounter diagnosis). 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 Aortic root replacement by Dr Mabry at [facility] Aortic regurgitation Benign hypertension BPH (benign prostatic hyperplasia) Mild CAD (coronary artery disease) Chronic kidney disease Chronic systolic heart failure (HCC) Colon polyps Diabetes mellitus (HCC) Diverticulosis External hemorrhoids without mention of complication Family history of malignant neoplasm of gastrointestinal tract family history of colon cancer Generalized osteoarthrosis, unspecified site bilateral knees H/O echocardiogram 02/24/2018 EF 30-35%, mod MR, aortic sclerosis History of aortic valve replacement 11/28/2009 Aortic root replacement with a Medtronic FreeStyle porcine bioprosthesis at the time of CABG done by Dr Prakash at [facility] ICD (implantable cardioverter-defibrillator) in place 01/27/2012 Dual chamber ICD implant by Dr. Cowan at [facility], [employer] Ischemic cardiomyopathy Mitral regurgitation Mixed hyperlipidemia Hyperlipidemia PVC's (premature ventricular contractions) Which have interfered with assessments of EF in the past S/P CABG (coronary artery bypass graft) 11/28/2009 CABG x 2 with MARQUEZ-LAD, SVG-PDA by Dr Mabry at [facility] Thyroid nodule Vitamin D deficiency PAST SURGICAL HISTORY Procedure Laterality Date ARTHRP KNE CONDYLE&PLATU MEDIAL&LAT COMPARTMENTS 2009 left knee COLONOSCOPY FLX DX W/COLLJ SPEC WHEN PFRMD 07/23/2003 Colonoscopy COLONOSCOPY FLX DX W/COLLJ SPEC WHEN PFRMD 01/17/2007 repeat in -2011 CORONARY ARTERY BYPASS GRAFT HX 11/28/2009 CABG x 2 CORONARY ENDARTERCOMY OPEN ANY METHOD 2007 Angioplasty EP STUDY 06/29/2011 Negative INSJ/RPLCMT PERM DFB W/TRNSVNS LDS 1/DUAL CHMBR Left 01/27/2012 Dual ICD implant PAST SURGICAL HISTORY OF 1967 Goiter , left PAST SURGICAL HISTORY OF 2008 FNA thyroid nodule RPR 1ST INGUN HRNA AGE 3 YRS/> REDUCIBLE Hernia repair, inguinal TONSILLECTOMY PRIMARY/SECONDARY <AGE 10 Tonsillectomy VASECTOMY UNI/BI SPX W/POSTOP SEMEN EXAMS Current Outpatient Medications Medication Sig latanoprost (XALATAN) 0.005 % ophthalmic solution fluorometholone (FML LIQUID FILM) 0.1 % ophthalmic suspension instill 1 drop BOTH EYES twice a day SIMBRINZA 1-0.2 % Ophth Susp place 1 drop into left eye twice a day rosuvastatin (CRESTOR) 40 mg tablet Take 1 tablet by mouth once daily. nitroglycerin sublingual (NITROQUICK) 0.4 mg SL tablet Dissolve 0.4 mg under the tongue every 5 minutes as needed. furosemide (LASIX) 20 mg tablet Take 1 tablet by mouth once daily. clopidogrel (PLAVIX) 75 mg tablet Take 1 tablet by mouth once daily. simvastatin (ZOCOR) 80 mg tablet Take 1 tablet by mouth daily at bedtime. (Patient taking differently: Take 40 mg by mouth daily at bedtime.) carvedilol (COREG) 25 mg ORAL tablet Take 1 tablet by mouth twice daily. (Patient taking differently: Take 6.25 mg by mouth twice daily.) Calcium-Cholecalciferol, D3, 600 mg-10 mcg (400 unit) cap Take by mouth once daily. aspirin(ECOTRIN LOW STRENGTH 81 MG TAB) Take one(1) tablet daily. valACYclovir (VALTREX) 1 gram Take 1,000 mg by mouth three times daily. (Patient not taking: Reported on 09/08/2022) dorzolamide-timolol (COSOPT) 22.3-6.8 mg/mL ophthalmic solution (Patient not taking: Reported on 09/08/2022) losartan 50 mg ORAL tablet Take 1 tablet by mouth twice daily. (Patient not taking: Reported on 09/08/2022) spironolactone (ALDACTONE) 25 mg ORAL tablet Take 1 tablet by mouth once daily. (Patient not taking: Reported on 09/08/2022) No current facility-administered medications for this visit. ALLERGIES: Lev Inhibitors, Diclofenac Sodium, Enalapril, and Voltaren Gel [Other] PERSONAL HISTORY: Social History Tobacco Use Smoking status: Never Smokeless tobacco: Never Vaping Use Vaping Use: Never used Substance Use Topics Alcohol use: No Drug use: No FAMILY HISTORY: FAMILY HISTORY Problem Relation Age of Onset Heart Mother CHF Cancer Father kidney Stroke Father other (Pneumonia) Father Diabetes Sister Heart Brother CHF Hypertension Brother Colon Cancer Brother Diabetes Brother Diabetes Brother No Known Problems Brother No Known Problems Brother Sudden Cardiac Brother REVIEW OF SYMPTOMS: The review of systems data was entered by the nurse and reviewed by wi Nursing Notes: Moni Mejia LPN 09/10/2022 3:55 PM Signed REVIEW OF SYSTEMS: General: The patient denies fatigue, denies weight loss, denies weight gain, denies feeling hot, and denies feelings of cold. Eyes: The patient denies glaucoma, denies eye injury/surgery, does not wear glasses or contacts. Ear/Nose/Throat: The patient NOTES allergies, denies hayfever, denies ear infections, and denies bloody noses. Cardiovascular: The patient denies chest pain, NOTES heart disease, NOTES high blood pressure,denies cardiac stent, denies prior heart attack, denies irregular heart beat, denies high cholesterol, denies poor circulation, denies heart failure, other cardiac issues, NOTES claudication, denies cold feet, denies peripheral arterial stent. Respiratory: The patient denies tuberculosis, denies pneumonia, denies frequent cough, denies pulmonary embolism, denies shortness of breath, and denies coughing up blood. Gastrointestinal: The patient denies difficulty swallowing, denies acid reflux, denies ulcers, denies vomiting, denies jaundice/hepatitis, denies gallbladder problems, denies black or tarry stools, NOTES hemorrhoids, denies bleeding from rectum, NOTES diverticulitis, denies constipation, denies diarrhea, denies loss of stool control, and denies hernias. Kidney/Bladder: The patient denies kidney stones, denies urine infections, and denies bloody urine. Skin: The patient denies a history of skin cancer, denies bleeding/changing moles, and denies a history of skin rash. Neurologic: The patient denies a history of epilepsy/convulsions, denies headaches, denies head/spinal injuries, and denies stroke/TIA. Psychiatric: The patient denies psychiatric medications, denies depression, and denies voices, denies substance abuse. Endocrine: The patient NOTES thyroid disorders, NOTES diabetes, and denies hormonal problems. Hematologic: The patient denies a history of bruising, denies bleeding, and denies anemia, denies blood clots. Infections: The patient denies a history of measles and mumps, denies rheumatic fever, and denies sexually transmitted diseases. Musculoskeletal: The patient denies back pain/injury, denies back problems, denies sciatica, denies knee/foot trouble, NOTES arthritis, or denies gout. When was patient's last Mammogram screening? N/A Last Colonoscopy: 2006 Moni Mejia LPN PHYSICAL EXAMINATION: General: The patient is 77 year old male, well nourished, well hydrated in no acute distress. The patient is oriented to time, place, and person. VITALS: Blood pressure 110/82, pulse 80, temperature 36.5 C (97.7 F), height 175.3 cm (5' 9 ), weight 71.8 kg (158 lb 3.2 oz), SpO2 94 %. HEENT: Normal cephalic, ataumatic, pupils are equally round, sclera are anicteric, mucous membranes are moist, oropharynx is clear. Neck has no masses, asymmetry or lymphadenopathy. Thyroid is unremarkable. Respiratory: Clear to auscultation and percussion. Normal respiratory excursion and pattern. Cardiac: Examination is regular rate and rhythm. Abdominal exam: Soft, nontender, with no palpable masses. No hepatosplenomegaly. No palpable hernias. Rectal exam: exam deferred Extremities: no clubbing, cyanosis or edema. No adenopathy. Other: LABORATORY VALUES: As Noted RADIOLOGIC STUDIES: As Noted Assessment IMPRESSION: Multinodular goiter (primary encounter diagnosis) PLAN: At this time no repeat fine-needle aspirations need to be done. He will need to have another ultrasound done in a year. Diagnoses: (E04.2) Multinodular goiter (primary encounter diagnosis) A letter was sent to Dr. Sohan Bryant MD indicating the above finding for this patient. Return to Clinic: The patient is instructed to follow-up with me in 1 year. Noah Hooker III, MD REVIEW OF SYSTEMS: General: The patient denies fatigue, denies weight loss, denies weight gain, denies feeling hot, and denies feelings of cold. Eyes: The patient NOTES glaucoma, notes eye injury/surgery, does not wear glasses or contacts. Ear/Nose/Throat: The patient denies allergies, denies hayfever, denies ear infections, and denies bloody noses. Cardiovascular: The patient denies chest pain, denies heart disease, NOTES high blood pressure,NOTES cardiac stent, NOTES prior heart attack, NOTES irregular heart beat, NOTES high cholesterol, denies poor circulation, denies heart failure, other cardiac issues, denies claudication, denies cold feet, denies peripheral arterial stent. Respiratory: The patient denies tuberculosis, denies pneumonia, denies frequent cough, denies pulmonary embolism, denies shortness of breath, and denies coughing up blood. Gastrointestinal: The patient denies difficulty swallowing, denies acid reflux, denies ulcers, denies vomiting, denies jaundice/hepatitis, denies gallbladder problems, denies black or tarry stools, denies hemorrhoids, denies bleeding from rectum, denies diverticulitis, denies constipation, denies diarrhea, denies loss of stool control, and denies hernias. Kidney/Bladder: The patient denies kidney stones, denies urine infections, and denies bloody urine. Skin: The patient denies a history of skin cancer, denies bleeding/changing moles, and denies a history of skin rash. Neurologic: The patient denies a history of epilepsy/convulsions, denies headaches, denies head/spinal injuries, and denies stroke/TIA. Psychiatric: The patient denies psychiatric medications, denies depression, and denies voices, denies substance abuse. Endocrine: The patient denies thyroid disorders, denies diabetes, and denies hormonal problems. Hematologic: The patient denies a history of bruising, denies bleeding, and denies anemia, denies blood clots. Infections: The patient NOTES a history of measles and mumps, denies rheumatic fever, and denies sexually transmitted diseases. Musculoskeletal: The patient denies back pain/injury, denies back problems, denies sciatica, denies knee/foot trouble, denies arthritis, or denies gout. When was patient's last Mammogram screening? N/A Last Colonoscopy: 2006 Moni Mejia LPN documented in this encounter [facility] Nurse Note 09-10-2022 Moni Mejia LPN - 09/10/2022 3:52 PM EST Note Date & Type Note Facility 09-10-2022 Nurse Note REVIEW OF SYSTEMS: General: The patient denies fatigue, denies weight loss, denies weight gain, denies feeling hot, and denies feelings of cold. Eyes: The patient denies glaucoma, denies eye injury/surgery, does not wear glasses or contacts. Ear/Nose/Throat: The patient NOTES allergies, denies hayfever, denies ear infections, and denies bloody noses. Cardiovascular: The patient denies chest pain, NOTES heart disease, NOTES high blood pressure,denies cardiac stent, denies prior heart attack, denies irregular heart beat, denies high cholesterol, denies poor circulation, denies heart failure, other cardiac issues, NOTES claudication, denies cold feet, denies peripheral arterial stent. Respiratory: The patient denies tuberculosis, denies pneumonia, denies frequent cough, denies pulmonary embolism, denies shortness of breath, and denies coughing up blood. Gastrointestinal: The patient denies difficulty swallowing, denies acid reflux, denies ulcers, denies vomiting, denies jaundice/hepatitis, denies gallbladder problems, denies black or tarry stools, NOTES hemorrhoids, denies bleeding from rectum, NOTES diverticulitis, denies constipation, denies diarrhea, denies loss of stool control, and denies hernias. Kidney/Bladder: The patient denies kidney stones, denies urine infections, and denies bloody urine. Skin: The patient denies a history of skin cancer, denies bleeding/changing moles, and denies a history of skin rash. Neurologic: The patient denies a history of epilepsy/convulsions, denies headaches, denies head/spinal injuries, and denies stroke/TIA. Psychiatric: The patient denies psychiatric medications, denies depression, and denies voices, denies substance abuse. Endocrine: The patient NOTES thyroid disorders, NOTES diabetes, and denies hormonal problems. Hematologic: The patient denies a history of bruising, denies bleeding, and denies anemia, denies blood clots. Infections: The patient denies a history of measles and mumps, denies rheumatic fever, and denies sexually transmitted diseases. Musculoskeletal: The patient denies back pain/injury, denies back problems, denies sciatica, denies knee/foot trouble, NOTES arthritis, or denies gout. When was patient's last Mammogram screening? N/A Last Colonoscopy: 2006 Moni Mejia LPN documented in this encounter [facility] Progress note 09-08-2022 Note Date & Type Note Facility 09-08-2022 Note HNO ID: [id number] Author: Moni Mejia LPN Service: ? Author Type: LICENSED NURSE Type: Progress Notes Filed: 09/20/2022 9:51 AM Note Text: REVIEW OF SYSTEMS: General: The patient denies fatigue, denies weight loss, denies weight gain, denies feeling hot, and denies feelings of cold. Eyes: The patient NOTES glaucoma, notes eye injury/surgery, does not wear glasses or contacts. Ear/Nose/Throat: The patient denies allergies, denies hayfever, denies ear infections, and denies bloody noses. Cardiovascular: The patient denies chest pain, denies heart disease, NOTES high blood pressure,NOTES cardiac stent, NOTES prior heart attack, NOTES irregular heart beat, NOTES high cholesterol, denies poor circulation, denies heart failure, other cardiac issues, denies claudication, denies cold feet, denies peripheral arterial stent. Respiratory: The patient denies tuberculosis, denies pneumonia, denies frequent cough, denies pulmonary embolism, denies shortness of breath, and denies coughing up blood. Gastrointestinal: The patient denies difficulty swallowing, denies acid reflux, denies ulcers, denies vomiting, denies jaundice/hepatitis, denies gallbladder problems, denies black or tarry stools, denies hemorrhoids, denies bleeding from rectum, denies diverticulitis, denies constipation, denies diarrhea, denies loss of stool control, and denies hernias. Kidney/Bladder: The patient denies kidney stones, denies urine infections, and denies bloody urine. Skin: The patient denies a history of skin cancer, denies bleeding/changing moles, and denies a history of skin rash. Neurologic: The patient denies a history of epilepsy/convulsions, denies headaches, denies head/spinal injuries, and denies stroke/TIA. Psychiatric: The patient denies psychiatric medications, denies depression, and denies voices, denies substance abuse. Endocrine: The patient denies thyroid disorders, denies diabetes, and denies hormonal problems. Hematologic: The patient denies a history of bruising, denies bleeding, and denies anemia, denies blood clots. Infections: The patient NOTES a history of measles and mumps, denies rheumatic fever, and denies sexually transmitted diseases. Musculoskeletal: The patient denies back pain/injury, denies back problems, denies sciatica, denies knee/foot trouble, denies arthritis, or denies gout. When was patient's last Mammogram screening? N/A Last Colonoscopy: 2006 Moni Mejia LPN [facility] Evaluation note Note Date & Type Note Facility documented in this encounter [facility] Summary Purpose Family History No Family History Records FoundNo Family History Records Found Advance Directives No Advanced Directives Records FoundNo Advanced Directives Records Found Additional Source Comments (unrecognized sect ion and content) No Status Records FoundNo Status Records Found INFORMATION SOURCE (unrecogn ized section and content) DATE CREATED AUTHOR AUTHOR'S ORGANIZ ATION 09/25/2022 [facility] Source Comments (unrecognize d section and content) In the event this informatio n is protected by the Federal Confidentiality of Alcohol and Drug Abuse Patient Records regulations: The Federal rules restrict any use of the information to criminally investigate or prosecute any alcohol or drug abuse patient.[facility] Reason for Visit (unrecogniz ed section and content) Care Teams (unrecognized sec tion and content) FOR RECORDS PERTAINING TO PATIENTS WHO ARE OR HAVE BEEN ENROLLED IN A CHEMICAL DEPENDENCY/SUBSTANCEABUSE PROGRAM, SOME INFORMATION MAY BE OMITTED. This clinical summary was aggregated from multiple sources. Caution should be exercised in using it in the provision of clinical care. This summary normalizes information from multiple sources, and as a consequence, information in this document may materially change the coding, format and clinical context of patient data. In addition, data may be omitted in some cases. CLINICAL DECISIONS SHOULD BE BASED ON THE PRIMARY CLINICAL RECORDS. [facility] [employer] [facility]. provides no warranty or guarantee of the accuracy or completeness of information in this document.
[2023-10-20 10:22] LABS: Color, Urine Yellow (Yellow); Glucose, Dipstick Normal (Normal); Ketone-Dipstick 5 mg/dl (Negative); Leukocyte Esterase-Dipstick 25 /ul (Negative); Nitrite-Dipstick Negative (Negative); Occult Blood-Urine Negative /ul (Negative); Protein-Dipstick 15 mg/dl (Negative); Urine Bilirubin Dipstick Negative (Negative); Urine Clarity Clear (Clear); Urine Urobilinogen 1 mg/dl (Normal)
[2023-10-20 10:28] LABS: Absolute Lymphocyte Count 1.57 X10^3/uL (0.83-4.51); Absolute Neutrophil Count 4.9 X10^3/uL (2.0-7.7); Basophil# 0.04 X10^3/uL; Basophil% 0.5 % (0-1); Eosinophil# 0.18 X10^3/uL; Eosinophils% 2.4 % (0-5); Hematocrit 43.3 % (40-54); Lymphocyte # 1.57 X10^3/ul (0.83-4.51); Lymphocyte % 21.2 % (19-41); Mean Corp Hgb Conc 34.6 g/dL (32-36); Mean Corpuscular Hgb 39.3 pg (27.0-32.0); Mean Corpuscular Volume 113.4 fL (80-94); Mean Platelet Vol. 11.5 fl (6.2-12.0); Monocyte% 9.5 % (0-10); NRBC Flagged by Analyzer 0 % (0-5); Neutrophil # 4.88 X10^3/uL (2.7-7.7); Neutrophil % 66.1 % (47-70); Platelet Count 124 K/mm3 (150-450); RBC Distribution Width CV 14.4 % (11.6-14.6); RBC Distribution Width SD 60.4 fl (35.1-43.9); Red Blood Count 3.82 M/mm3 (4.6-6.2); White Blood Count 7.4 K/mm3 (4.4-11.0)
[2023-10-20 11:04] LABS: Microalbumin,Random Urine 38.7 mg/L (NO RANGE EST.); Microalbumin:Creatinine Ratio 16.5 mg/g CRE (<30 mg/g CRE); Protein, Urine (Random) 18.8 mg/dL (<11.9); Protein:Creat Ratio 80 mg/g CRE (0-200)
[2023-10-20 11:06] LABS: Vitamin D,25 Hydroxy 73.8 ng/mL
[2023-10-20 11:13] LABS: Mucous, Urine 1+ /hpf (<or=2+); White Blood Cells 0-5 SEEN /hpf (0-5)
[2023-10-20 11:29] LABS: ALB/GLOB Ratio 1.1 RATIO (0.9-2.4); AST(SGOT) 19 U/L (15-37); Alanine Aminotransfer ALT/SGPT 28 U/L (16-61); Albumin, Serum 3.7 g/dL (3.2-5.0); Alkaline Phosphatase 36 U/L (45-117); Anion Gap 6 (5-15); BUN 20 mg/dL (7-18); Calcium,Total 9.4 mg/dL (8.5-10.1); Chloride 111 mmol/L (98-107); Cholesterol 137 mg/dL (200); Creatinine, Serum 1.33 mg/dL (0.70-1.30); EST Glomerular Filtration Rate 55 mL/min (>60); Est Glom Filt Rate - Afr Amer 66 mL/min (>60); Globulin 3.4 g/dL (2.2-4.2); Glucose 112 mg/dL (74-106); High Density Lipoprotein 52 mg/dL; Magnesium 1.9 mg/dL (1.6-2.6); Phosphorus 3.5 mg/dL (2.5-4.9); Potassium 3.9 mmol/L (3.5-5.1); Protein, Total 7.1 g/dL (6.4-8.2); Sodium Level 142 mmol/L (136-145); Triglycerides 89 mg/dL; Very Low Density Lipoprotein 18 mg/dL (5-40)
[2023-10-20 11:43] LABS: Hemoglobin A1c 5.5 % (3.8-5.6)
== END 2023-10-20 23:59 | disposition home or self-care (01) ==
LOC: MFPLAB 08:40
PROVIDERS: PCP Family Medicine; Visit Provider Family Medicine
DX: E11.22 Type 2 diabetes mellitus with diabetic chronic kidney disease (principal); E55.9 Vitamin D deficiency, unspecified
CPT/HCPCS: 36415; 80053; 80061; 81001; 82043; 82306; 82570; 83036; 83735; 84100; 84156; 85025

== ENCOUNTER → 2023-11-03 | Outpatient (CLI) | payer MEDICARE, OTHER, SELFPAY ==
--- NOTE | 2023-11-03 13:21 | US_ITS ---
STUDY: THYROID ULTRASOUND REASON FOR EXAM: Male, 78 years old. GOITER TECHNIQUE: Ultrasound evaluation of the thyroid was performed with real-time and static henning-scale imaging. COMPARISON: 08/24/2022. FINDINGS: RIGHT LOBE: The right lobe of the thyroid gland measures 4.8 x 2.3 x 2.1 cm. There is a homogeneous echotexture. Within the right thyroid lobe there are 2 nodules identified, one measuring 0.9 x 0.6 x 0.4 cm and the second measuring 2.4 x 2.2 x 2.0 cm. This revealed peripheral and nodular color flow with solid and cystic component, unchanged in the interval. LEFT LOBE: The left lobe of the thyroid gland measures 4.6 x 2.1 x 1.6 cm. There is a homogeneous echotexture. Within the left thyroid lobe there are 3 nodules identified measuring 0.7 x 0.5 x 0.4 cm, 0.4 x 0.4 x 0.3 cm and 0.6 x 0.6 x 0.4 cm, stable or slightly decreased in the interval. This are diffusely hypoechoic and reveal regular wall with peripheral nodular flow. These are stable in size in the interval. ISTHMUS: The isthmus measures 2.5 mm. Within the isthmus there are 3 nodules identified, one measuring 0.44 x 0.35 x 0.3 cm, stable in the interval. There are 2 additional cysts is in the isthmus measuring 0.9 x 0.9 x 0.5 cm and 0.6 x 0.7 x 0.3 cm, stable in the interval. The regional lymph nodes are normal. US/Thyroid IMPRESSION: Bilateral thyroid lobe nodules as described, essentially stable in the interval, morphology and stability favoring benign processes. Note to be made that benign versus malignant processes cannot be determined without microscopic evaluation or documentation of stability. If indicated, follow-up ultrasound recommended in 6-12 months. Electronically Signed: Tressa Reynolds MD at 2:55 EST ,
== END | disposition home or self-care (01) ==
LOC: US 13:20
PROVIDERS: PCP Family Medicine; Referring Provider Family Medicine; Visit Provider Family Medicine
DX: E04.2 Nontoxic multinodular goiter (principal)
CPT/HCPCS: 76536

== ENCOUNTER → 2024-02-16 | Outpatient (CLI) | payer MEDICARE, OTHER, SELFPAY ==
[2024-02-16 10:13] LABS: Absolute Lymphocyte Count 1.46 X10^3/uL (0.83-4.51); Absolute Neutrophil Count 3.3 X10^3/uL (2.0-7.7); Basophil# 0.04 X10^3/uL; Basophil% 0.7 % (0-1); Eosinophil# 0.17 X10^3/uL; Hemoglobin 13.9 g/dL (13.0-16.5); Lymphocyte # 1.46 X10^3/ul (0.83-4.51); Mean Corp Hgb Conc 34.8 g/dL (32-36); Mean Corpuscular Hgb 39.3 pg (27.0-32.0); Mean Platelet Vol. 11.3 fl (6.2-12.0); Monocyte# 0.66 X10^3/uL; Monocyte% 11.7 % (0-10); NRBC Flagged by Analyzer 0 % (0-5); Neutrophil # 3.26 X10^3/uL (2.7-7.7); Neutrophil % 58.1 % (47-70); Platelet Count 129 K/mm3 (150-450); Red Blood Count 3.54 M/mm3 (4.6-6.2); White Blood Count 5.6 K/mm3 (4.4-11.0)
[2024-02-16 10:17] LABS: Color, Urine Yellow (Yellow); Glucose, Dipstick Normal (Normal); Ketone-Dipstick Negative (Negative); Leukocyte Esterase-Dipstick Negative /ul (Negative); Nitrite-Dipstick Negative (Negative); Occult Blood-Urine Negative /ul (Negative); Protein-Dipstick Negative (Negative); Urine Bilirubin Dipstick Negative (Negative); Urine Clarity Clear (Clear); Urine Urobilinogen 1 mg/dl (Normal); Urine pH 6.5 (5.0 - 8.0)
[2024-02-16 10:23] LABS: Protein, Urine (Random) 17.2 mg/dL (<11.9); Protein:Creat Ratio 93 mg/g CRE (0-200)
[2024-02-16 10:26] LABS: Bacteria 0 SEEN /hpf (None Seen); Mucous, Urine 0 SEEN /hpf (<or=2+); Red Blood Cells-Urine 0 SEEN /hpf (0-5); Squamous Epithelial Cells - UA 0 SEEN /hpf (0-5); White Blood Cells 0 SEEN /hpf (0-5)
[2024-02-16 10:30] LABS: Vitamin D,25 Hydroxy 77.7 ng/mL
[2024-02-16 10:53] LABS: ALB/GLOB Ratio 1.1 RATIO (0.9-2.4); AST(SGOT) 30 U/L (15-37); Alanine Aminotransfer ALT/SGPT 36 U/L (16-61); Albumin, Serum 3.6 g/dL (3.2-5.0); Alkaline Phosphatase 32 U/L (45-117); Anion Gap 5 (5-15); BUN 19 mg/dL (7-18); BUN/Creat Ratio 16.1 RATIO (10-20); Calcium,Total 9.3 mg/dL (8.5-10.1); Chloride 108 mmol/L (98-107); Cholesterol 131 mg/dL (200); Creatinine, Serum 1.18 mg/dL (0.70-1.30); EST Glomerular Filtration Rate 63 mL/min (>60); Est Glom Filt Rate - Afr Amer 76 mL/min (>60); Globulin 3.4 g/dL (2.2-4.2); Glucose 107 mg/dL (74-106); High Density Lipoprotein 49 mg/dL; Potassium 4.1 mmol/L (3.5-5.1); Sodium Level 138 mmol/L (136-145); Triglycerides 75 mg/dL; Very Low Density Lipoprotein 15 mg/dL (5-40)
[2024-02-16 12:17] LABS: Hemoglobin A1c 5.5 % (3.8-5.6)
== END | disposition home or self-care (01) ==
LOC: MFPLAB 08:10
PROVIDERS: PCP Family Medicine; Visit Provider Family Medicine
DX: E55.9 Vitamin D deficiency, unspecified (principal); E11.22 Type 2 diabetes mellitus with diabetic chronic kidney disease
CPT/HCPCS: 36415; 80053; 80061; 81001; 82306; 82570; 83036; 84156; 85025

== ENCOUNTER 2024-04-18 08:14 | Day surgery (SDC) | payer MEDICARE, OTHER, SELFPAY ==
[2024-04-05 13:50] LABS: Bacteria 0 SEEN /hpf (None Seen); Mucous, Urine 0 SEEN /hpf (<or=2+); Red Blood Cells-Urine 0 SEEN /hpf (0-5); Squamous Epithelial Cells - UA 0 SEEN /hpf (0-5); White Blood Cells 0 SEEN /hpf (0-5)
[2024-04-05 14:18] LABS: Hematocrit 40.6 % (40-54); Hemoglobin 14.2 g/dL (13.0-16.5); Mean Corpuscular Volume 111.5 fL (80-94); Mean Platelet Vol. 11.1 fl (6.2-12.0); Platelet Count 117 K/mm3 (150-450); RBC Distribution Width CV 13.6 % (11.6-14.6); RBC Distribution Width SD 55.9 fl (35.1-43.9); Red Blood Count 3.64 M/mm3 (4.6-6.2); White Blood Count 6.3 K/mm3 (4.4-11.0)
[2024-04-05 14:24] LABS: Color, Urine Straw (Yellow); Glucose, Dipstick Normal (Normal); Ketone-Dipstick Negative (Negative); Leukocyte Esterase-Dipstick Negative /ul (Negative); Nitrite-Dipstick Negative (Negative); Occult Blood-Urine Negative /ul (Negative); Protein-Dipstick Negative (Negative); Urine Bilirubin Dipstick Negative (Negative); Urine Clarity Clear (Clear); Urine Urobilinogen Normal (Normal); Urine pH 6.5 (5.0 - 8.0)
[2024-04-05 14:27] LABS: International Normalized Ratio 1.1; Prothrombin Time (Protime)PT. 13.9 SECONDS (11.7-14.9)
[2024-04-05 14:57] LABS: Anion Gap 8 (5-15); BUN 17 mg/dL (7-18); BUN/Creat Ratio 14.9 RATIO (10-20); Calcium,Total 9.7 mg/dL (8.5-10.1); Chloride 104 mmol/L (98-107); Creatinine, Serum 1.14 mg/dL (0.70-1.30); EST Glomerular Filtration Rate 66 mL/min (>60); Est Glom Filt Rate - Afr Amer 79 mL/min (>60); Glucose 103 mg/dL (74-106); Potassium 4.2 mmol/L (3.5-5.1); Sodium Level 134 mmol/L (136-145)
[2024-04-17 08:40] VITALS: BMI 21.1
--- NOTE | 2024-04-18 10:27 | EX.DEFIBPR_ITS ---
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 The patient was brought to the electrophysiology laboratory in a fasting state. Sedation provided by myself and nursing staff. The left shoulder area was prepped and draped in the usual manner and the skin and subcutaneous tissues below the left clavicle were infiltrated with 1% lidocaine for local anesthesia. The skin was sharply incised. Electrocautery and blunt dissection were carried out to the level of the pulse generator. The generator was removed from the pocket. The leads were disconnected from the pulse generator. The leads were freed of fibrosis and connected to the pulse generator. The device was noted to function appropriately. The pocket was noted to have an absence of active bleeding. The pulse generator was placed in the pocket and sutured to the pre- pectoral fascia. The pocket was then irrigated with antibiotic solution. The incision was closed with two layers of 2-0 Vicryl and a subcuticular closure of 4-0 Vicryl. The incision was dressed steri-strips. Conclusions Successful ICD generator changeout with adequate and stable pacing threshold, sensing and lead impedance. Recommendations 1. Routine follow-up in the device clinic. 2. Remove outer dressing after 48 hours. Leave steri-strips intact for 7-10 days, then remove if it does not fall off by itself. 3. Device follow up as scheduled. 4. Hold anticoagulation for 24 hours (No heparin IV or NOAC, ok to continue warfarin). 5. The patient can continue to follow-up with Dr. Saunders.
== END 2024-04-18 11:30 | disposition home or self-care (01) ==
PROVIDERS: Internal Medicine Cardiovascular Disease; PCP Family Medicine; Referring Provider Internal Medicine; Visit Provider Internal Medicine
DX: Z95.810 Presence of automatic (implantable) cardiac defibrillator (principal); I13.0 Hypertensive heart and chronic kidney disease with heart failure and stage 1 through stage 4 chronic kidney disease, or unspecified chronic kidney disease; I50.22 Chronic systolic (congestive) heart failure; I47.20 Ventricular tachycardia, unspecified; I25.10 Atherosclerotic heart disease of native coronary artery without angina pectoris; I25.2 Old myocardial infarction; N18.9 Chronic kidney disease, unspecified; I25.5 Ischemic cardiomyopathy; E78.2 Mixed hyperlipidemia; Z95.3 Presence of xenogenic heart valve; Z95.1 Presence of aortocoronary bypass graft; Z79.899 Other long term (current) drug therapy; Z79.82 Long term (current) use of aspirin
CPT/HCPCS: 33263; 36415; 80048; 81001; 85027; 85610; 93641; 99152; 99153; J7040; J7050

== ENCOUNTER → 2024-04-26 | Outpatient (CLI) | payer MEDICARE, OTHER, SELFPAY ==
--- NOTE | 2024-04-26 12:45 | ECHOD_ITS ---
Reason For Study: ARRHYTHMIA (ICD generator change 04/18/2024) Procedure This was a 2D Doppler, Color Flow transthoracic echocardiogram. Exam performed in department. Left Ventricle Normal LV size. The left ventricular ejection fraction is 55 %. Stage 1 diastolic dysfunction. No regional wall motion abnormalities noted. Right Ventricle Normal RV size. ICD or pacer leads identified within the right ventricle. Normal systolic function. Atria The left atrium is mildly enlarged. Normal right atrium. Mitral Valve Mild diffuse mitral valve thickening. Tricuspid Valve Normal tricuspid valve. Mild to moderate (1-2+) tricuspid valve insufficiency. Pulmonary artery systolic pressure is 40 mmHg. Aortic Valve Mild diffuse aortic valve thickening. Peak aortic valve gradient 9 mmHg. Mean aortic valve gradient 4 mmHg. Bioprosthetic aortic valve. Pulmonic Valve Normal pulmonic valve. Great Vessels Normal aortic root. The pulmonary artery is normal size. Normal inferior vena cava. Pericardium/Pleural No pericardial effusion. MMode/2D Measurements & Calculations LVIDd: 5.3 cm IVSd: 0.99 cm Ao root diam: 3.0 cm LVIDs: 3.2 cm LVPWd: 0.94 cm RVDd: 4.1 cm FS: 39.6 % LAV(MOD-bp): 75.1 ml LVAd ap4: 40.4 cm2 LVAd ap2: 33.1 cm2 LAV(MOD-bp) Indexed: 42.3 ml/m2 LVLd ap4: 8.7 cm LVLd ap2: 8.0 cm LAV(MOD-sp2): 66.3 ml EDV(MOD-sp4): 152.0 ml EDV(MOD-sp2): 111.8 ml LAV(MOD-sp4): 79.7 ml EDV(sp4-el): 159.1 ml EDV(sp2-el): 116.5 ml LVAs ap4: 24.3 cm2 LVAs ap2: 21.0 cm2 LVLs ap4: 7.6 cm LVLs ap2: 7.4 cm ESV(MOD-sp4): 64.0 ml ESV(MOD-sp2): 47.9 ml ESV(sp4-el): 65.9 ml ESV(sp2-el): 50.7 ml EF(MOD-sp4): 57.9 % EF(MOD-sp2): 57.2 % EF(sp4-el): 58.6 % SV(MOD-sp4): 88.0 ml SV(MOD-sp2): 63.9 ml SV(sp4-el): 93.2 ml LA dimension(2D): 3.7 cm LA A4 area: 23.0 cm2 RA A4 area: 15.3 cm2 TAPSE: 2.0 cm Time Measurements MV dec time: 0.13 sec Doppler Measurements & Calculations MV E max tristan: 74.6 cm/sec Lat Peak E' Tristan: 9.8 cm/sec Med Peak E' Tristan: 3.7 cm/sec MV A max tristan: 90.3 cm/sec E/E' lat: 7.6 E/E' med: 20.0 MV E/A: 0.83 MV V2 max: 95.5 cm/sec MV P1/2t max tristan: 83.0 cm/sec Ao V2 max: 154.0 cm/sec MV max P.6 mmHg MV P1/2t: 48.3 msec Ao max P.5 mmHg MV V2 mean: 54.8 cm/sec MV dec slope: 503.8 cm/sec2 Ao V2 mean: 88.4 cm/sec MV mean P.4 mmHg Ao mean P.7 mmHg MV V2 VTI: 26.1 cm MVA(P1/2t): 4.6 cm2 Ao V2 VTI: 22.4 cm AV (velocity ratio): 0.65 LV V1 max: 78.2 cm/sec PA V2 max: 107.4 cm/sec PI dec slope: 153.7 cm/sec2 LV V1 max P.4 mmHg PA V2 mean: 62.9 cm/sec LV V1 mean P.0 mmHg PA V2 VTI: 18.7 cm LV V1 mean: 46.9 cm/sec LV V1 VTI: 14.6 cm TR max tristan: 299.2 cm/sec TR max P.8 mmHg ECHO/Echo Complete Interpretation Summary The left ventricular ejection fraction is 55 %. Stage 1 diastolic dysfunction. Pulmonary artery systolic pressure is 40 mmHg. Bioprosthetic aortic valve. Compared to previous study, the left ventricular systolic function has improved .. Ordering Physician: Ike Saunders Referring Physician: Jonathon Bryant Performed By: Lulú Santana, JASPER, RVT
== END | disposition home or self-care (01) ==
LOC: CVS 12:44
PROVIDERS: PCP Family Medicine; Referring Provider Internal Medicine Cardiovascular Disease; Visit Provider Internal Medicine Cardiovascular Disease
DX: Z95.1 Presence of aortocoronary bypass graft (principal); I25.5 Ischemic cardiomyopathy
CPT/HCPCS: 93306

== ENCOUNTER → 2024-06-21 | Outpatient (CLI) | payer MEDICARE, OTHER, SELFPAY ==
[2024-06-21 10:07] LABS: Absolute Lymphocyte Count 1.41 X10^3/uL (0.83-4.51); Basophil# 0.03 X10^3/uL; Basophil% 0.5 % (0-1); Eosinophil# 0.17 X10^3/uL; Eosinophils% 2.7 % (0-5); Hematocrit 39.7 % (40-54); Hemoglobin 13.6 g/dL (13.0-16.5); Lymphocyte # 1.41 X10^3/ul (0.83-4.51); Lymphocyte % 22.3 % (19-41); Mean Corp Hgb Conc 34.3 g/dL (32-36); Mean Corpuscular Hgb 38.7 pg (27.0-32.0); Mean Corpuscular Volume 113.1 fL (80-94); Mean Platelet Vol. 11.3 fl (6.2-12.0); Monocyte# 0.68 X10^3/uL; Monocyte% 10.8 % (0-10); NRBC Flagged by Analyzer 0 % (0-5); Neutrophil # 4.01 X10^3/uL (2.7-7.7); Neutrophil % 63.5 % (47-70); Platelet Count 108 K/mm3 (150-450); RBC Distribution Width CV 13.9 % (11.6-14.6); RBC Distribution Width SD 58.3 fl (35.1-43.9); Red Blood Count 3.51 M/mm3 (4.6-6.2); White Blood Count 6.3 K/mm3 (4.4-11.0)
[2024-06-21 10:28] LABS: AST(SGOT) 20 U/L (15-37); Alanine Aminotransfer ALT/SGPT 25 U/L (16-61); Albumin, Serum 3.5 g/dL (3.2-5.0); Alkaline Phosphatase 35 U/L (45-117); Anion Gap 4 (5-15); BUN 17 mg/dL (7-18); Calcium,Total 9.2 mg/dL (8.5-10.1); Chloride 107 mmol/L (98-107); Cholesterol 126 mg/dL (200); EST Glomerular Filtration Rate 76 mL/min (>60); Est Glom Filt Rate - Afr Amer 92 mL/min (>60); Globulin 3.5 g/dL (2.2-4.2); Glucose 111 mg/dL (74-106); High Density Lipoprotein 53 mg/dL; Potassium 4.2 mmol/L (3.5-5.1); Sodium Level 136 mmol/L (136-145); Triglycerides 80 mg/dL; Very Low Density Lipoprotein 16 mg/dL (5-40)
[2024-06-21 10:37] LABS: Hemoglobin A1c 5.9 % (3.8-5.6)
== END | disposition home or self-care (01) ==
LOC: MFPLAB 08:12
PROVIDERS: PCP Family Medicine; Visit Provider Family Medicine
DX: E11.8 Type 2 diabetes mellitus with unspecified complications (principal); D69.6 Thrombocytopenia, unspecified; I25.10 Atherosclerotic heart disease of native coronary artery without angina pectoris
CPT/HCPCS: 36415; 80053; 80061; 83036; 85025

== ENCOUNTER → 2024-10-06 | Outpatient (CLI) | payer MEDICARE, OTHER, SELFPAY ==
[2024-10-06 10:41] LABS: Bacteria 0 SEEN /hpf (None Seen); Mucous, Urine 0 SEEN /hpf (<or=2+); Red Blood Cells-Urine 0 SEEN /hpf (0-5); Squamous Epithelial Cells - UA 0 SEEN /hpf (0-5); White Blood Cells 0 SEEN /hpf (0-5)
[2024-10-06 15:16] LABS: Color, Urine Yellow (Yellow); Glucose, Dipstick Normal (Normal); Ketone-Dipstick Negative (Negative); Leukocyte Esterase-Dipstick Negative /ul (Negative); Nitrite-Dipstick Negative (Negative); Occult Blood-Urine Negative /ul (Negative); Protein-Dipstick Negative (Negative); Urine Clarity Clear (Clear); Urine Urobilinogen 1 mg/dl (Normal)
[2024-10-06 15:18] LABS: Urine Bilirubin Dipstick 1 mg/dL (Negative)
[2024-10-06 15:21] LABS: Absolute Lymphocyte Count 1.91 X10^3/uL (0.83-4.51); Absolute Neutrophil Count 4.1 X10^3/uL (2.0-7.7); Basophil# 0.05 X10^3/uL; Basophil% 0.7 % (0-1); Eosinophil# 0.18 X10^3/uL; Eosinophils% 2.6 % (0-5); Hematocrit 41.4 % (40-54); Hemoglobin 14.3 g/dL (13.0-16.5); Lymphocyte # 1.91 X10^3/ul (0.83-4.51); Lymphocyte % 27.6 % (19-41); Mean Corp Hgb Conc 34.5 g/dL (32-36); Mean Corpuscular Hgb 38.8 pg (27.0-32.0); Mean Corpuscular Volume 112.2 fL (80-94); Monocyte# 0.67 X10^3/uL; Monocyte% 9.7 % (0-10); NRBC Flagged by Analyzer 0 % (0-5); Neutrophil # 4.07 X10^3/uL (2.7-7.7); Platelet Count 122 K/mm3 (150-450); RBC Distribution Width CV 13.8 % (11.6-14.6); RBC Distribution Width SD 56.6 fl (35.1-43.9); Red Blood Count 3.69 M/mm3 (4.6-6.2); White Blood Count 6.9 K/mm3 (4.4-11.0)
[2024-10-06 15:40] LABS: Protein, Urine (Random) 20.2 mg/dL (<11.9); Protein:Creat Ratio 129 mg/g CRE (0-200)
[2024-10-06 15:47] LABS: ALB/GLOB Ratio 1.1 RATIO (0.9-2.4); AST(SGOT) 32 U/L (15-37); Alanine Aminotransfer ALT/SGPT 39 U/L (16-61); Albumin, Serum 3.9 g/dL (3.2-5.0); Alkaline Phosphatase 41 U/L (45-117); Anion Gap 7 (5-15); BUN 21 mg/dL (7-18); BUN/Creat Ratio 18.1 RATIO (10-20); Calcium,Total 9.2 mg/dL (8.5-10.1); Chloride 110 mmol/L (98-107); Cholesterol 133 mg/dL (200); Creatinine, Serum 1.16 mg/dL (0.70-1.30); EST Glomerular Filtration Rate 64 mL/min (>60); Est Glom Filt Rate - Afr Amer 78 mL/min (>60); Globulin 3.4 g/dL (2.2-4.2); Glucose 98 mg/dL (74-106); High Density Lipoprotein 55 mg/dL; Potassium 4.1 mmol/L (3.5-5.1); Protein, Total 7.3 g/dL (6.4-8.2); Sodium Level 140 mmol/L (136-145); Triglycerides 85 mg/dL; Very Low Density Lipoprotein 17 mg/dL (5-40)
[2024-10-06 15:58] LABS: Vitamin D,25 Hydroxy 68.3 ng/mL
[2024-10-06 16:31] LABS: Hemoglobin A1c 5.9 % (3.8-5.6)
== END | disposition home or self-care (01) ==
LOC: MFPLAB 10:38
PROVIDERS: PCP Family Medicine; Referring Provider Family Medicine; Visit Provider Family Medicine
DX: E11.22 Type 2 diabetes mellitus with diabetic chronic kidney disease (principal)
CPT/HCPCS: 36415; 80053; 80061; 81001; 82306; 82570; 83036; 84156; 85025

== ENCOUNTER → 2024-10-13 | Outpatient (CLI) | payer MEDICARE, OTHER, SELFPAY ==
--- NOTE | 2024-10-13 13:36 | US_ITS ---
STUDY: THYROID ULTRASOUND REASON FOR EXAM: Male, 79 years old. nodules TECHNIQUE: Ultrasound evaluation of the thyroid was performed with real-time and static henning-scale imaging. COMPARISON: Thyroid ultrasound dated November 03, 2023 FINDINGS: RIGHT LOBE: The right lobe of the thyroid gland measures 20 x 2.1 x 2.0, previously measuring 4.8 x 2.3 x 2.1 cm. There is a heterogeneous echotexture. Diffuse heterogeneous multinodular gland consistent with multinodular goiter. LEFT LOBE: The left lobe of the thyroid gland measures 4.4 x 1.8 x 1.5 cm, previously measuring 4.6 x 2.1 x 1.6 cm. There is a heterogeneous echotexture. Diffuse heterogeneous multinodular gland consistent with multinodular goiter. ISTHMUS: The isthmus measures 0.4 cm. No demonstrated masses or fluid collections or cysts or lymphadenopathy in the surrounding tissues. 3 stable dominant nodules at the right lobe maximally measuring 1 x 0.6 cm, 1 x 0.9 cm, and 2.1 x 2.3 cm. The larger 2.3 cm nodule is somewhat complex and hypervascular but has been present and essentially stable since January 03, 2021 exam and consistent with a hyperplastic nodule and focus of goiter. 2 stable 4 mm hypoechoic nodules in the left lobe without interval change. US/Thyroid IMPRESSION: 1. Multinodular goiter without significant interval change 2. TR2: 2 points = not suspicious 3. If physical symptoms, abnormal thyroid values or other findings warrant further radiologic assessment repeat the study and consider nuclear medicine iodine 123 or PET/CT if there is concern for malignancy. 4. Targeted image guided biopsy of nodules of interest can also be performed with definitive pathologic assessment and diagnosis. ACR Thyroid Imaging Reporting and Data System (ACR TI-RADS) Reference: COMPOSITION (choose 1): Cystic or almost completely cystic - 0 points Spongiform- 0 points Mixed cystic and solid - 1 point Solid almost completely solid - 2 points ECHOGENICITY (choose 1): Anechoic space - 0 points Hyperechoic or isoechoic-1 point Hypoechoic-2 points Very hypoechoic-3 points SHAPE (choose 1): : Wider than tall-0 points Taller than wide-3 points MARGINS ( smooth, lobular, ill-defined) ECHOGENIC FOCI (macro or microcalcifications) Scoring and classification TR1: 0 points = benign TR2: 2 points = not suspicious TR3: 3 points = mildly suspicious TR4: 4-6 points = moderately suspicious TR5: ?7 points = highly suspicious Recommendations TR1: no FNA required TR2: no FNA required TR3: ?1.5 cm follow up, ?2.5 cm FNA = follow up: 1, 3 and 5 years TR4: ?1.0 cm follow up, ?1.5 cm FNA = follow up: 1, 2, 3 and 5 years TR5: ?0.5 cm follow up, ?1.0 cm FNA = annual follow up for up to 5 years FNA biopsy is recommended for suspicious lesions (TR3-TR5) with the above size criteria. If there are multiple nodules, the two with the highest ACR TI-RADS scores should be sampled (rather than the two largest), with largest size being used a tie-breaker if there are multiple nodules of the same classification. Electronically Signed: Erasto Guo MD at 13:18 EST Reading Location ID and State: [address] [place] [address] , Service support ,
== END | disposition home or self-care (01) ==
PROVIDERS: PCP Family Medicine; Referring Provider Family Medicine; Visit Provider Family Medicine
DX: E04.2 Nontoxic multinodular goiter (principal)
CPT/HCPCS: 76536

== ENCOUNTER → 2025-02-07 | Outpatient (CLI) | payer MEDICARE, OTHER, SELFPAY ==
[2025-02-07 12:52] LABS: Absolute Lymphocyte Count 1.61 X10^3/uL (0.83-4.51); Absolute Neutrophil Count 3.5 X10^3/uL (2.0-7.7); Basophil# 0.04 X10^3/uL; Basophil% 0.7 % (0-1); Eosinophil# 0.17 X10^3/uL; Eosinophils% 2.8 % (0-5); Hematocrit 40.9 % (40-54); Hemoglobin 14.2 g/dL (13.0-16.5); Lymphocyte # 1.61 X10^3/ul (0.83-4.51); Lymphocyte % 26.6 % (19-41); Mean Corp Hgb Conc 34.7 g/dL (32-36); Mean Corpuscular Hgb 38.8 pg (27.0-32.0); Mean Corpuscular Volume 111.7 fL (80-94); Mean Platelet Vol. 11.4 fl (6.2-12.0); Monocyte# 0.77 X10^3/uL; Monocyte% 12.7 % (0-10); NRBC Flagged by Analyzer 0 % (0-5); Neutrophil # 3.46 X10^3/uL (2.7-7.7); Platelet Count 108 K/mm3 (150-450); RBC Distribution Width CV 13.8 % (11.6-14.6); RBC Distribution Width SD 57.1 fl (35.1-43.9); Red Blood Count 3.66 M/mm3 (4.6-6.2); White Blood Count 6.1 K/mm3 (4.4-11.0)
[2025-02-07 13:56] LABS: Microalbumin,Random Urine < 12.0 mg/L (NO RANGE EST.); Microalbumin:Creatinine Ratio UNABLE TO CALCULATE mg/g CRE; Protein, Urine (Random) 14.1 mg/dL (0.0-12.0); Protein:Creat Ratio 76 mg/g CRE (0-200)
[2025-02-07 13:57] LABS: ALB/GLOB Ratio 1.5 RATIO (0.9-2.4); AST(SGOT) 37 U/L (<=37); Alanine Aminotransfer ALT/SGPT 47 U/L (<=46); Alkaline Phosphatase 44 U/L (40-129); Anion Gap 9 (5-15); BUN 21 mg/dL (4-19); BUN/Creat Ratio 18.6 RATIO (10-20); Calcium,Total 9.6 mg/dL (7.6-11.0); Carbon Dioxide 22.1 mmol/L (21.0-32.0); Chloride 106 mmol/L (98-108); Cholesterol 123 mg/dL (<=200); Creatinine, Serum 1.15 mg/dL (0.70-1.20); EST Glomerular Filtration Rate 64 (>60); Globulin 2.7 g/dL (2.2-4.2); Glucose 87 mg/dL (70-99); High Density Lipoprotein 46 mg/dL; Low Density Lipoprotein Calc. 60 mg/dL; Potassium 4.7 mmol/L (3.3-5.1); Protein, Total 6.8 g/dL (5.9-8.4); Sodium Level 137 mmol/L (133-145); Total Bilirubin 0.82 mg/dL (0.00-1.30); Triglycerides 83 mg/dL; Very Low Density Lipoprotein 17 mg/dL (5-40); cholesterol:hdl ratio screen 2.65
[2025-02-07 13:58] LABS: Vitamin D,25 Hydroxy 56.4 ng/mL (30-100)
== END | disposition home or self-care (01) ==
LOC: MFPLAB 10:10
PROVIDERS: PCP Family Medicine; Referring Provider Family Medicine; Visit Provider Family Medicine
DX: E11.69 Type 2 diabetes mellitus with other specified complication (principal); E55.9 Vitamin D deficiency, unspecified
CPT/HCPCS: 36415; 80053; 80061; 82043; 82306; 82570; 83036; 84156; 85025

== ENCOUNTER → 2025-06-05 | Outpatient (CLI) | payer MEDICARE, OTHER, SELFPAY ==
[2025-06-05 12:41] LABS: Hematocrit 40.1 % (40-54); Hemoglobin 14.4 g/dL (13.0-16.5); Immature Granulocytes Count 0.020 X10^3/uL (0.0-0.0); Mean Corp Hgb Conc 35.9 g/dL (32-36); Mean Corpuscular Volume 110.2 fL (80-94); Mean Platelet Vol. 11.4 fl (6.2-12.0); NRBC Flagged by Analyzer 0 % (0-5); Platelet Count 113 K/mm3 (150-450); RBC Distribution Width CV 13.7 % (11.6-14.6); RBC Distribution Width SD 56.1 fl (35.1-43.9); Red Blood Count 3.64 M/mm3 (4.6-6.2); White Blood Count 7.2 K/mm3 (4.4-11.0)
[2025-06-05 13:04] LABS: Creatinine, Urine (random) 184.00 mg/dL (39.00-259.00); Microalbumin,Random Urine 18.5 mg/L (<20 mg/L)
[2025-06-05 13:26] LABS: AST(SGOT) 24 U/L (<=37); Alanine Aminotransfer ALT/SGPT 24 U/L (<=46); Albumin, Serum 4.2 g/dL (3.4-4.8); Alkaline Phosphatase 33 U/L (40-129); Anion Gap 10 (5-15); BUN 22 mg/dL (4-19); BUN/Creat Ratio 19.3 RATIO (10-20); Calcium,Total 9.4 mg/dL (7.6-11.0); Carbon Dioxide 21.5 mmol/L (21.0-32.0); Chloride 105 mmol/L (98-108); Cholesterol 126 mg/dL (<=200); Globulin 2.6 g/dL (2.2-4.2); Glucose 113 mg/dL (70-99); Low Density Lipoprotein Calc. 63 mg/dL; Potassium 4.5 mmol/L (3.3-5.1); Triglycerides 67 mg/dL; Very Low Density Lipoprotein 13 mg/dL (5-40); cholesterol:hdl ratio screen 2.53
== END | disposition home or self-care (01) ==
LOC: MFPLAB 08:50
PROVIDERS: PCP Family Medicine; Referring Provider Family Medicine; Visit Provider Family Medicine
DX: E11.8 Type 2 diabetes mellitus with unspecified complications (principal)
CPT/HCPCS: 80053; 80061; 82043; 82570; 83036; 85025

== ENCOUNTER → 2025-09-11 | Outpatient (CLI) | payer MEDICARE, OTHER, SELFPAY ==
[2025-09-11 11:02] LABS: Hematocrit 40.2 % (40-54); Hemoglobin 14.2 g/dL (13.0-16.5); Immature Granulocytes Count 0.020 X10^3/uL (0.0-0.0); Mean Corp Hgb Conc 35.3 g/dL (32-36); Mean Corpuscular Volume 110.7 fL (80-94); Mean Platelet Vol. 11.9 fl (6.2-12.0); NRBC Flagged by Analyzer 0 % (0-5); Platelet Count 108 K/mm3 (150-450); RBC Distribution Width CV 13.7 % (11.6-14.6); RBC Distribution Width SD 56.3 fl (35.1-43.9); Red Blood Count 3.63 M/mm3 (4.6-6.2); White Blood Count 7.4 K/mm3 (4.4-11.0)
[2025-09-11 11:09] LABS: Creatinine, Urine (random) 225.00 mg/dL (39.00-259.00); Microalbumin,Random Urine 92.2 mg/L (<20 mg/L); Protein, Urine (Random) 33.7 mg/dL (0.0-12.0); Protein:Creat Ratio 150 mg/g CRE (0-200)
[2025-09-11 11:59] LABS: AST(SGOT) 24 U/L (<=37); Alanine Aminotransfer ALT/SGPT 22 U/L (<=46); Albumin, Serum 4.2 g/dL (3.4-4.8); Alkaline Phosphatase 32 U/L (40-129); Anion Gap 11 (5-15); BUN 20 mg/dL (4-19); BUN/Creat Ratio 16.4 RATIO (10-20); Calcium,Total 9.6 mg/dL (7.6-11.0); Carbon Dioxide 22.4 mmol/L (21.0-32.0); Chloride 109 mmol/L (98-108); Cholesterol 127 mg/dL (<=200); Globulin 2.6 g/dL (2.2-4.2); Glucose 122 mg/dL (70-99); Low Density Lipoprotein Calc. 63 mg/dL; Potassium 4.2 mmol/L (3.3-5.1); Triglycerides 79 mg/dL; Very Low Density Lipoprotein 16 mg/dL (5-40); Vitamin B12 426 pg/mL (180-914); Vitamin D,25 Hydroxy 58.5 ng/mL (30-100); cholesterol:hdl ratio screen 2.61
[2025-09-11 13:41] LABS: FOLATES,SERUM (FOLIC ACID) 26.60 ng/mL (4.60-34.80)
== END | disposition home or self-care (01) ==
LOC: MFPLAB 09:05
PROVIDERS: PCP Family Medicine; Visit Provider Family Medicine
DX: E11.8 Type 2 diabetes mellitus with unspecified complications (principal); E11.69 Type 2 diabetes mellitus with other specified complication; E55.9 Vitamin D deficiency, unspecified
CPT/HCPCS: 36415; 80053; 80061; 82043; 82306; 82570; 82607; 82746; 83036; 84156; 85025